=== PATIENT | male | born 1930 | race Caucasian/White ===

== ENCOUNTER 2016-02-16 11:39 | Inpatient (IN) | payer MEDICARE, OTHER ==
[~2016-02-16] VITALS: Ht 157.5 cm; Wt 71.7 kg
[~2016-02-16 11:39] MED LIST: ASP325T PO; ATN50T; BETH25TA PO; CCLB10TRX PO; DOCU-143 PO; FINA5TAB6 PO; FLUC100T6 PO; LEVO500T2 PO; LEVO500T80 PO; LSNP10T; MAGN296S50 PO; PHEN-640 PO; TAMS0.4C98 PO
[2016-02-16] MEDS ORDERED: NS IV 1000 ML 1,000 ML IV STA (11:44)
[2016-02-16] MEDS ORDERED: PROMETHAZINE INJ 25 MG/ML (PHENERGAN) AMP IVP STA (11:44)
[2016-02-16 11:51] LABS: BASOPHILS % (AUTO) 0 % (0-10); EOSINOPHILS # (AUTO) 0.2 10^3/uL (0.0-0.3); EOSINOPHILS % (AUTO) 2 % (0-10); LYMPHOCYTES % (AUTO) 36 % (12-44); MEAN CORPUSCULAR HEMOGLOBIN 31 PG (25-34); MEAN CORPUSCULAR HGB CONC 35 G/DL (32-36); MEAN CORPUSCULAR VOLUME 87 FL (80-99); MEAN PLATELET VOLUME 9.3 FL (7.4-10.4); MONOCYTES # (AUTO) 0.7 X 10^3 (0.0-1.0); MONOCYTES % (AUTO) 8 % (0-12); NEUTROPHILS # (AUTO) 4.4 X 10^3 (1.8-7.8); NEUTROPHILS % (AUTO) 53 % (42-75); PLATELET COUNT 174 10^3/uL (130-400); RED BLOOD COUNT 4.57 10^6/uL (4.35-5.85); RED CELL DISTRIBUTION WIDTH 12.6 % (10.0-14.5); WHITE BLOOD COUNT 8.2 10^3/uL (4.3-11.0)
[2016-02-16 12:12] LABS: ALANINE AMINOTRANSFERASE 10 U/L (0-55); ANION GAP 10 MMOL/L (5-14); BILIRUBIN,TOTAL 0.6 MG/DL (0.1-1.0); BLOOD UREA NITROGEN 16 MG/DL (7-18); BUN/CREATININE RATIO 12; CALCIUM 8.9 MG/DL (8.5-10.1); CARBON DIOXIDE 21 MMOL/L (21-32); CHLORIDE 105 MMOL/L (98-107); CREATININE SERUM 1.31 MG/DL (0.60-1.30); GFR ESTIMATED 52; GLUCOSE 158 MG/DL (70-105); POTASSIUM 3.7 MMOL/L (3.6-5.0); SODIUM 136 MMOL/L (135-145); TOTAL PROTEIN 6.8 G/DL (6.4-8.2); hs C REACTIVE PROTEIN 0.28 MG/DL (0.00-0.50)
[2016-02-16 12:18] LABS: TROPONIN I < 0.30 NG/ML (<0.30)
--- NOTE | 2016-02-16 12:22 | ED General ---
General Chief Complaint: Cardiac/General Problems Stated Complaint: POST CARDIAC ARREST Source of Information: Patient Exam Limitations: No Limitations History of Present Illness Time Seen by Provider: 11:40 Initial Comments Here by EMS with report of post cardiac arrest and CPR with spontaneous return of circulation. EMS noted the patient to be with a pulse on their arrival and breathing and complaining of abdominal pain. He had multiple episodes of vomiting that were persistent. They did initiate IV 2 and initiated 1 L bolus of fluid as well as a milligrams of Zofran IV. Patient is still vomiting fecal smelling brown vomitus. He complains of left-sided abdominal pain and weakness. Family reports that the event started with him walking to the bathroom and then coming out of the bathroom sweating and pale. He sat in the chair and then ultimately went unresponsive. They laid him on the floor and noted his pulse to be very weak and initiated CPR due to concerns that he was having a heart attack because of the presentation. After about 2 minutes, patient started vomiting and having persistent vomiting but was awake and CPR was stopped. EMS was called and they found him as stated above. Patient only reports not feeling well. Family reports that he was doing fine yesterday and this morning until the time of the event. Patient admits to a few hours of abdominal pain. Timing/Duration: 1-3 Hours Severity: Severe Associated Systoms: No Chest Pain, No Fever/Chills, Nausea/Vomiting Syncope Weakness Allergies and Home Medications Allergies Coded Allergies: No Known Drug Allergies (Verified , 01/05/15) Uncoded Allergies: Nka (Allergy, Mild, 09/10/07) Home Medications Bethanechol Chloride 25 Mg Tablet 14Days 50 MG PO ACHS Prescribed by: SHAWNEE LADD on 01/09/15914 Levofloxacin 500 Mg Tablet 5Days 500 MG PO DAILY Prescribed by: SHAWNEE LADD on 01/09/15914 Tamsulosin HCl 0.4 Mg Cap 0.4 MG PO DAILY (Reported) Constitutional: see HPINo chills, diaphoresisNo fever, weakness EENTM: no symptoms reported Respiratory: see HPINo short of breath, No wheezing Cardiovascular: see HPINo edema, syncope Gastrointestinal: see HPI abdominal pain (LUQ)No diarrhea, nausea vomiting Genitourinary: no symptoms reported Musculoskeletal: no symptoms reported Skin: no symptoms reported Psychiatric/Neurological: Weakness All Other Systems Reviewed Negative Unless Noted: Yes Past Bjbkvxn-Ejwrkb-Jiarfo Hx Patient Social History Recreational Drug Use: No Smoking Status: Never a Smoker Former Smoker/When Quit: Feb 19, 1979 Immunizations Up To Date Date of Influenza Vaccine: Nov 23, 2014 Surgeries HX Surgeries: Yes Surgeries: Appendectomy Respiratory Hx Respiratory Disorders: No Cardiovascular Hx Cardiac Disorders: No Neurological Hx Neurological Disorders: No Reproductive System Hx Reproductive Disorders: No Sexually Transmitted Disease: No HIV/AIDS: No Genitourinary Hx Genitourinary Disorders: Yes Genitourinary Disorders: Benign Prostatic Hyperpl, Prostate Problems, Kidney Stones, UTI-Chronic Gastrointestinal Hx Gastrointestinal Disorders: No Musculoskeletal Hx Musculoskeletal Disorders: No Endocrine Hx Endocrine Disorders: No HEENT HX ENT Disorders: Yes (GLASSES, DENTURES) Loss of Vision: Bilateral Hearing Impairment: Denies Cancer Hx Cancer: No Psychosocial Hx Psychiatric Problems: No Integumentary HX Skin/Integumentary Disorder: No Blood Transfusions Hx Blood Disorders: No Adverse Reaction to a Blood Tr: No Reviewed Nursing Assessment Reviewed/Agree w Nursing PMH: Yes Family Medical History Significant Family History: No Pertinent Family Hx Physical Exam Vital Signs Vital Sign - Last 12Hours 02/16/16 11:50 Temp 96.9 Pulse 55 Resp 22 B/P 190/77 Pulse Ox 96 O2 Delivery Room Air Capillary Refill : General Appearance: Moderate Distress (vomiting and abdominal pain) HEENT: PERRL/EOMI Pharynx Normal Neck: Non Tender Supple Respiratory: Lungs Clear Normal Breath Sounds Cardiovascular: Regular Rate, Rhythm No Murmur Gastrointestinal: SoftNo Distended, Tenderness (diffusely greatest in the left upper quadrant) Back: Normal Inspection No CVA Tenderness No Vertebral Tenderness Extremity: Non Tender No Calf Tenderness Neurologic/Psychiatric: Alert No Motor/Sensory Deficits Skin: Normal Color Warm/Dry Progress/Results/Core Measures Results/Orders Lab Results Laboratory Tests Test 02/16/16 11:44 02/16/16 12:44 Range/Units Alanine Aminotransferase (ALT/SGPT) 10 0-55 U/L Albumin 4.0 3.2-4.5 G/DL Alkaline Phosphatase 98 40-136 U/L Anion Gap 10 5-14 MMOL/L Aspartate Amino Transf (AST/SGOT) 19 5-34 U/L BUN/Creatinine Ratio 12 Basophils # (Auto) 0.0 0.0-0.1 10^3/uL Basophils (%) (Auto) 0 0-10 % Blood Urea Nitrogen 16 7-18 MG/DL C-Reactive Protein High Sensitivity 0.28 0.00-0.50 MG/DL Calcium Level 8.9 8.5-10.1 MG/DL Carbon Dioxide Level 21 21-32 MMOL/L Chloride Level 105 98-107 MMOL/L Creatinine 1.31 H 0.60-1.30 MG/DL Eosinophils # (Auto) 0.2 0.0-0.3 10^3/uL Eosinophils (%) (Auto) 2 0-10 % Estimat Glomerular Filtration Rate 52 Glucose Level 158 H 70-105 MG/DL Hematocrit 40 40-54 % Hemoglobin 14.1 13.3-17.7 G/DL Lymphocytes # (Auto) 3.0 1.0-4.0 X 10^3 Lymphocytes (%) (Auto) 36 12-44 % Mean Corpuscular Hemoglobin 31 25-34 PG Mean Corpuscular Hemoglobin Concent 35 32-36 G/DL Mean Corpuscular Volume 87 80-99 FL Mean Platelet Volume 9.3 7.4-10.4 FL Monocytes # (Auto) 0.7 0.0-1.0 X 10^3 Monocytes (%) (Auto) 8 0-12 % Neutrophils # (Auto) 4.4 1.8-7.8 X 10^3 Neutrophils (%) (Auto) 53 42-75 % Platelet Count 174 130-400 10^3/uL Potassium Level 3.7 3.6-5.0 MMOL/L Red Blood Count 4.57 4.35-5.85 10^6/uL Red Cell Distribution Width 12.6 10.0-14.5 % Sodium Level 136 135-145 MMOL/L Total Bilirubin 0.6 0.1-1.0 MG/DL Total Protein 6.8 6.4-8.2 G/DL Troponin I < 0.30 <0.30 NG/ML White Blood Count 8.2 4.3-11.0 10^3/uL Lactic Acid Level 1.7 0.5-2.0 MMOL/L My Orders Orders-FRANCISCO ALBA MD Ekg Tracing (02/16/16 11:44) Ng Tube Insert & Assessment (02/16/16 11:44) Monitor-Rhythm Ecg Trace Only (02/16/16 11:44) Cbc With Automated Diff (02/16/16 11:44) Comprehensive Metabolic Panel (02/16/16 11:44) Hs C Reactive Protein (02/16/16 11:44) Lactic Acid Analyzer (02/16/16 11:44) Troponin I (02/16/16 11:44) Ua Culture If Indicated (02/16/16 11:44) Blood Culture (02/16/16 11:44) Chest 1 View, Ap/Pa Only (02/16/16 11:44) Promethazine Injection (Phenergan Injec (02/16/16 11:44) Ns Iv 1000 Ml (Sodium Chloride 0.9%) (02/16/16 11:44) Ct Abdomen/Pelvis Wo (02/16/16 11:59) Vital Signs/I&O Vital Sign - Last 12Hours 02/16/16 11:50 Temp 96.9 Pulse 55 Resp 22 B/P 190/77 Pulse Ox 96 O2 Delivery Room Air Progress Note : Progress Note Seen and evaluated. IV EMS with normal saline 1 L bolus initiated by them. Labs, EKG, chest x-ray, CT abdomen and pelvis without contrast ordered. NG tube ordered due to persistent vomiting and fecal appearing and smelling vomitus. Vomiting resolved after NG tube placement. Monitor patient. 1330: Overall much improved after NG tube. NG tube was pulled back 10 cm after discussion with radiologist. Patient did have CPR performed on him today. He is still a little nauseated but not vomiting anymore now that the NG tube is in place. Labs, chest x-ray and CT all are okay. Patient will be admitted observation status due to CPR and vomiting event as well as syncopal event. This was discussed with Dr. KHAN who agrees with admission, observation status. Patient and family agree with plan. ECG Initial ECG Impression Date: Feb 16, 2016 Initial ECG Impression Time: 12:02 Initial ECG Rate: 52 Initial ECG Rhythm: Normal Sinus Initial ECG Impression: 1st Degree AV Block Comment Sinus rhythm with first degree AV block. No previous available for comparison. No evidence of ST elevation ID. Interpreted by me. Diagnostic Imaging Diagonstic Imaging: Xray Plain Films/CT/US/NM/MRI: chest [facility] [place] [place] NAME: JESUS GONZALEZ REC#: [id number] PT STATUS: REG ER : 1930 PHYSICIAN: FRANCISCO ALBA MD ADMIT DATE: 02/16/16/ER Draft Date of Exam:02/16/16 CHEST 1 VIEW, AP/PA ONLY EXAMINATION: Portable upright radiograph of the chest. INDICATION: Loss of consciousness. Syncope. Vomiting. FINDINGS: There is an NG tube with the distal tip probably in the proximal duodenum. The NG tube could be pulled back about 10 cm into the mid stomach. The lungs are clear. The heart size is normal. No effusion or pneumothorax. The mediastinum and thad appear unremarkable. IMPRESSION: The NG tube tip is in the upper right side of the abdomen, possibly passed the pylorus. Pull back of about 10 cm of the NG tube is suggested. Dictated on workstation # [id number] Dict: 02/16/16 1237 Trans: 02/16/16 1243 [id number] Interpreted by: JUSTINE CARSON MD Electronically signed by: [facility]: CT Plain Films/CT/US/NM/MRI: abdomen, pelvis Reviewed: Discussed w/Radiologist Departure Communication Time/Spoke to Admitting Phy: 13:30 Impression Impression: Primary Impression: Syncope and collapse Additional Impressions: History of sudden cardiac arrest successfully resuscitated Nausea and vomiting Qualified Code: R11.13 - Vomiting of fecal matter Disposition: ADMITTED INPATIENT Condition: Stable Decision to Admit Reason: Admit from ER (General) Decision to Admit/Date: Feb 16, 2016 Time/Decision to Admit Time: 13:30 Departure-Patient Inst. Referrals: KASH MAGALLANES MD (PCP/Family) Primary Care Physician Copy Copies To 1: KASH MAGALLANES MD, TIMOTHY D MD Feb 16, 2016 12:22
[2016-02-16 12:26] LABS: ASPARTATE AMINO TRANSFERASE 19 U/L (5-34)
--- NOTE | 2016-02-16 12:44 | Diagnostic Imaging Report ---
EXAMINATION: Portable upright radiograph of the chest. INDICATION: Loss of consciousness. Syncope. Vomiting. FINDINGS: There is an NG tube with the distal tip probably in the proximal duodenum. The NG tube could be pulled back about 10 cm into the mid stomach. The lungs are clear. The heart size is normal. No effusion or pneumothorax. The mediastinum and thad appear unremarkable. IMPRESSION: The NG tube tip is in the upper right side of the abdomen, possibly passed the pylorus. Pull back of about 10 cm of the NG tube is suggested. Dictated by: Dictated on workstation # [id number]
--- NOTE | 2016-02-16 13:37 | Diagnostic Imaging Report ---
PROCEDURE: CT abdomen and pelvis without contrast. TECHNIQUE: Multiple contiguous axial images were obtained through the abdomen and pelvis without the use of intravenous contrast. INDICATION: Syncope. Abdominal pain. FINDINGS: The lung bases demonstrate mild atelectasis. The NG tube tip is in the proximal duodenum. Pull back into the stomach is recommended. The liver, the gallbladder, the spleen, the pancreas, and the adrenal glands appear unremarkable for unenhanced exam. There is suggestion of a small hiatal hernia. There is no pneumoperitoneum and no free fluid or fluid collection in the abdomen or pelvis seen. There are a few diverticula noted with no evidence of diverticulitis. Moderate amount of fecal material is seen in the left colon and rectum. The kidneys demonstrate no hydronephrosis. No urinary tract stones. There urinary bladder is mildly distended with a prominent lobulation anteriorly and to the right, appears to be projecting towards a small direct right inguinal hernia. The prostate is enlarged with nonspecific calcifications. This measures 5.5 cm in transverse dimension. 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 The osseous structures demonstrate mild degenerative change with vacuum phenomenon at L5/S1 disc. IMPRESSION: 1. The NG tube tip is in the proximal duodenum. Pull back into the stomach is recommended. 2. Diverticulosis. No evidence of diverticulitis. There is moderate amount of fecal material in the distal colon and rectum. 3. Mildly distended urinary bladder with prominent lobulated portion projecting anteriorly and to the right into a small right direct inguinal hernia. The urinary bladder wall is not thickened. No CT evidence of strangulation. 4. Small hiatal hernia. 5. 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 Dictated by: Dictated on workstation # [id number]
[2016-02-16] MEDS ORDERED: ONDANSETRON 4 MG/2 ML (SDV) Z0FRAN IV PRN (14:45)
[2016-02-16] MEDS ORDERED: CATHETER FLUSH 10 ML SYR IV PRN (14:45)
[2016-02-16] MEDS ORDERED: fentaNYL INJECTION 100 MCG/2 ML AMP IV PRN (15:00)
[2016-02-16] MEDS: NS IV 1000 ML 1,000 ML IV SCH ×2 (15:05→22:27)
[2016-02-16] MEDS ORDERED: POLY15DR14 OU (15:49)
[2016-02-16] MEDS ORDERED: ASPI-808 PO (15:49)
[2016-02-16 20:00] VITALS: BP 159/65
[2016-02-17 00:24] VITALS: BP 141/64
[2016-02-17 04:00] VITALS: BP 138/66
[2016-02-17] MEDS: NS IV 1000 ML 1,000 ML IV SCH ×2 (06:30→14:39)
[2016-02-17 06:56] LABS: BASOPHILS % (AUTO) 0 % (0-10); EOSINOPHILS % (AUTO) 0 % (0-10); LYMPHOCYTES # (AUTO) 0.9 X 10^3 (1.0-4.0); LYMPHOCYTES % (AUTO) 11 % (12-44); MEAN CORPUSCULAR HEMOGLOBIN 31 PG (25-34); MEAN CORPUSCULAR HGB CONC 35 G/DL (32-36); MEAN CORPUSCULAR VOLUME 89 FL (80-99); MEAN PLATELET VOLUME 9.8 FL (7.4-10.4); MONOCYTES # (AUTO) 0.8 X 10^3 (0.0-1.0); MONOCYTES % (AUTO) 9 % (0-12); NEUTROPHILS % (AUTO) 80 % (42-75); PLATELET COUNT 183 10^3/uL (130-400); RED BLOOD COUNT 4.27 10^6/uL (4.35-5.85); RED CELL DISTRIBUTION WIDTH 12.7 % (10.0-14.5); WHITE BLOOD COUNT 8.8 10^3/uL (4.3-11.0)
[2016-02-17 07:22] LABS: ALBUMIN 3.7 G/DL (3.2-4.5); BILIRUBIN,TOTAL 0.9 MG/DL (0.1-1.0); CALCIUM 8.6 MG/DL (8.5-10.1); CREATININE SERUM 1.25 MG/DL (0.60-1.30); POTASSIUM 3.4 MMOL/L (3.6-5.0); TOTAL PROTEIN 6.5 G/DL (6.4-8.2)
[2016-02-17 08:00] VITALS: BP 143/62
[2016-02-17] MEDS ORDERED: ARTIFICAL TEARS 0.4 ML UNIT DOSE (REFRESH PLUS) OU PRN (09:45)
[2016-02-17] MEDS: POTASSIUM CL 10MEQ/50ML IVPB 50 ML IV SCH ×4 (10:08→14:41)
--- NOTE | 2016-02-17 10:50 | History & Physical-Hospitalist ---
HPI History of Present Illness: HPI/Chief Complaint CC: Syncopal episode HPI: This is an 86[facility] pt of Dr. Argueta'stephenie that was admitted after he was brought to ER by EMS post-cardiac arrest and CPR with return of circulation. Upon more evaluation, it appeared that he had some sort of vagal syncope due to severe vomiting. Dr. Jackson Consult: Dr. Armstrong requests that Dr. Jackson assist with pt. Dr. Jackson agrees. Patient Interview: Pt states that he has not vomited recently. Pt states that his throat is sore. Pt's last BM was yesterday. Pt states that he would like to DC. Physical exam revealed coarse breathing. Dr. Armstrong informs pt of plans for x-ray. Pt is not receiving breathing treatments. Scribed by Santiago Miller under the direct supervision of Dr. Armstrong. Source: patient Date Seen 02/17/16 Attending Physician Roderick Lindo MD PCP Jignesh Argueta MD Referring Physician Date of Admission Feb 17, 2016 at 09:40 Home Medications & Allergies Home Medications Reviewed patient Home Medication Reconciliation Form Allergies Coded Allergies: No Known Drug Allergies (Verified , 01/05/15) Uncoded Allergies: Nka (Allergy, Mild, 09/10/07) Past Kmzmife-Jwxerx-Zbythj Hx Patient Social History Employed/Student: retired Alcohol Use: Denies Use Recreational Drug Use: No Smoking Status: Former Smoker Former smoker/When Quit: Feb 19, 1979 Physical Abuse Screen: No Sexual Abuse: No Recent Foreign Travel: No Contact w/other who traveled: No Recent Hopitalizations: No Recent Infectious Disease Expo: No Immunizations Up To Date Date of Influenza Vaccine: Nov 20, 2015 Seasonal Allergies Seasonal Allergies: No Surgeries HX Surgeries: Yes (APPY 1950, CATARACTS REMOVED) Surgeries: Appendectomy Respiratory Hx Respiratory Disorders: No Cardiovascular Hx Cardiovascular Disorders: Yes ([place] 1974) Cardiac Disorders: Coronary Artery Disease Neurological Hx Neurological Disorders: No Reproductive System Hx Reproductive Disorders: No Sexually Transmitted Disease: No HIV/AIDS: No Genitourinary Hx Genitourinary Disorders: Yes Genitourinary Disorders: Benign Prostatic Hyperpl, Prostate Problems, UTI- Chronic Gastrointestinal Hx Gastrointestinal Disorders: No Musculoskeletal Hx Musculoskeletal Disorders: No Endocrine Hx Endocrine Disorders: No HEENT HX ENT Disorders: Yes (GLASSES, DENTURES) Loss of Vision: Bilateral Hearing Impairment: Hard of Hearing Cancer Hx Cancer: No Psychosocial Hx Psychiatric Problems: No Integumentary HX Skin/Integumentary Disorder: No Blood Transfusions Hx Blood Disorders: No Adverse Reaction to a Blood Tr: No Reviewed Nursing Assessment Reviewed/Agree w Nursing PMH: Yes Family Medical History Significant Family History: No Pertinent Family Hx Family Hx: CANCER 19 FATHER G8 BROTHER G8 BROTHER G8 SISTER FH: cancer Review of Systems Constitutional: see HPI dizziness weakness EENTM: no symptoms reported Respiratory: cough short of breath Cardiovascular: no symptoms reported Gastrointestinal: loss of appetite nausea vomiting Genitourinary: decreased output Musculoskeletal: no symptoms reported Skin: no symptoms reported Psychiatric/Neurological: No Symptoms Reported All Other Systems Reviewed Negative Unless Noted: Yes Physical Exam Physical Exam Vital Signs Vital Sign - Last 12Hours 02/16/16 11:50 Temp 96.9 Pulse 55 Resp 22 B/P 190/77 Pulse Ox 96 O2 Delivery Room Air Capillary Refill : Less Than 3 Seconds General Appearance: No Apparent Distress WD/WN Chronically ill Eyes: Bilateral Eye Normal Inspection, Bilateral Eye PERRL HEENT: PERRL/EOMI Normal ENT Inspection Pharynx Normal Neck: Full Range of Motion Normal Inspection Non Tender Supple Carotid Bruit Respiratory: Chest Non Tender No Accessory Muscle Use No Respiratory Distress Crackles Decreased Breath Sounds Wheezing Cardiovascular: Regular Rate, Rhythm No Edema No Gallop No JVD No Murmur Normal Peripheral Pulses Gastrointestinal: Normal Bowel Sounds No Organomegaly No Pulsatile Mass Non Tender Soft Other (NGT in place) Back: Normal Inspection No CVA Tenderness No Vertebral Tenderness Extremity: Normal Capillary Refill Normal Inspection Normal Range of Motion Non Tender No Calf Tenderness No Pedal Edema Neurologic/Psychiatric: Alert Oriented x3 No Motor/Sensory Deficits Normal Mood/Affect Skin: Normal Color Warm/Dry Lymphatic: No Adenopathy Results Results/Procedures Lab Laboratory Tests 02/16/16 11:44 02/17/16 05:40 Assessment/Plan Admission Diagnosis Assessment: S/P aspiration during CPR after unresponsive episode likely due to vagal episode causing aspiration pneumonitis with current SBO with NGT in place with fever Hypokalemia ARF improved with IVF Dry eye syndrome Assessment and Plan Plan: Consult Dr. Jackson and Dr Fiore Replace K IV Maintain NGT Check KUB and CXR Duoneb QID Zosyn Clinical Quality Measures DVT/VTE Risk/Contraindication: Risk Factor Score Per Nursin RFS Level Per Nursing on Admit: 4+=Very High RAFAEL ARMSTRONG DO Feb 17, 2016 10:50
[2016-02-17] MEDS ORDERED: PIPERACILLIN SODIUM/TAZOBACTAM 4.5 GM in NORMAL SALINE (BAXTER MINI) 100 ML IV NR (11:00)
[2016-02-17] MEDS: PANTOPRAZOLE 40 MG/10 ML (PROTONIX) VIAL IV SCH (11:18)
--- NOTE | 2016-02-17 11:30 | Consultation ---
History of Present Illness History of Present Illness Patient Consulted On(silvia/time) 02/17/16 11:24 Date of Admission History of Present Illness This is a 86-year-old male patient who was admitted through the ER yesterday after EMS was called to residence for Cardiac arrest.Family reports that patient was about to sit down after going to the bathroom and slumped in chair. Family members brought him down to the floor and began to perform CPR while another family member called EMS. Family member also reported that couple of times after performing CPR, the patient would "come around"and have an episode of nausea and vomiting and then was "out". He also stated that patient was diaphoretic and appeared that he was having a heart attack. Patient reports that he does not remember anything happening. The patient ED report states, when EMS arrived, patient was breathing, and had a pulse, complaining of abdominal pain. Patient continued to have multiple episodes of vomiting. Patient has NG tube in his right and denies having any episode of nausea or vomiting today. Allergies and Home Medications Allergies Coded Allergies: No Known Drug Allergies (Verified , 01/05/15) Uncoded Allergies: Nka (Allergy, Mild, 09/10/07) Home Medications Aspirin 325 Mg Tablet 325 MG PO DAILY PRN PRN PAIN (Reported) Polyvinyl Alcohol/Povidone 15 Ml Drops 1 DROP OU DAILY PRN PRN PRN DRY EYES ( Reported) Past Rlnnhyb-Icvwnv-Muhkhf Hx Patient Social History Alcohol Use: Denies Use Recreational Drug Use: No Smoking Status: Former Smoker Former Smoker/When Quit: Feb 19, 1979 Recent Foreign Travel: No Contact w/Someone Who Travel: No Recent Infectious Disease Expo: No Recent Hopitalizations: No Physical Abuse Screen: No Sexual Abuse: No Immunizations Up To Date Date of Influenza Vaccine: Nov 20, 2015 Seasonal Allergies Seasonal Allergies: No Surgeries HX Surgeries: Yes (APPY 1950, CATARACTS REMOVED) Surgeries: Appendectomy Respiratory Hx Respiratory Disorders: No Cardiovascular Hx Cardiac Disorders: Yes ([place] 1974) Cardiac Disorders: Coronary Artery Disease Neurological Hx Neurological Disorders: No Reproductive System Hx Reproductive Disorders: No Sexually Transmitted Disease: No HIV/AIDS: No Genitourinary Hx Genitourinary Disorders: Yes Genitourinary Disorders: Benign Prostatic Hyperpl, Prostate Problems, UTI- Chronic Gastrointestinal Hx Gastrointestinal Disorders: No Musculoskeletal Hx Musculoskeletal Disorders: No Endocrine Hx Endocrine Disorders: No HEENT HX ENT Disorders: Yes (GLASSES, DENTURES) Loss of Vision: Bilateral Hearing Impairment: Hard of Hearing Cancer Hx Cancer: No Psychosocial Hx Psychiatric Problems: No Integumentary HX Skin/Integumentary Disorder: No Blood Transfusions Hx Blood Disorders: No Adverse Reaction to a Blood Tr: No Reviewed Nursing Assessment Reviewed/Agree w Nursing PMH: Yes Family Medical History Significant Family History: No Pertinent Family Hx Family Medial History: CANCER 19 FATHER G8 BROTHER G8 BROTHER G8 SISTER FH: cancer Review of Systems-General Constitutional: see HPI diaphoresis EENTM: no symptoms reported see HPI Respiratory: see HPI Cardiovascular: see HPI Gastrointestinal: see HPI Genitourinary: no symptoms reported Musculoskeletal: no symptoms reported Skin: other (Pt was clammy. ) Physical Exam-General Problems Physical Exam Vital Signs Vital Sign - Last 12Hours 02/16/16 11:50 Temp 96.9 Pulse 55 Resp 22 B/P 190/77 Pulse Ox 96 O2 Delivery Room Air Capillary Refill : Less Than 3 Seconds General Appearance: no apparent distress HEENT: pale conjunctivae (R) pale conjunctivae (L) Neck: normal inspection Respiratory: no respiratory distress no accessory muscle use Cardiovascular: regular rate, rhythm Gastrointestinal: non tender soft Extremities: no pedal edema no calf tenderness Neurologic/Psychiatric: alert normal mood/affect Skin: warm/dry Data Review Labs Laboratory Tests Test 02/16/16 11:44 02/16/16 12:44 02/17/16 05:40 Range/Units Alanine Aminotransferase (ALT/SGPT) 10 8 0-55 U/L Albumin 4.0 3.7 3.2-4.5 G/DL Alkaline Phosphatase 98 82 40-136 U/L Anion Gap 10 10 5-14 MMOL/L Aspartate Amino Transf (AST/SGOT) 19 16 5-34 U/L BUN/Creatinine Ratio 12 13 Basophils # (Auto) 0.0 0.0 0.0-0.1 10^3/uL Basophils (%) (Auto) 0 0 0-10 % Blood Urea Nitrogen 16 16 7-18 MG/DL C-Reactive Protein High Sensitivity 0.28 0.00-0.50 MG/DL Calcium Level 8.9 8.6 8.5-10.1 MG/DL Carbon Dioxide Level 21 25 21-32 MMOL/L Chloride Level 105 106 98-107 MMOL/L Creatinine 1.31 H 1.25 0.60-1.30 MG/DL Eosinophils # (Auto) 0.2 0.0 0.0-0.3 10^3/uL Eosinophils (%) (Auto) 2 0 0-10 % Estimat Glomerular Filtration Rate 52 55 Glucose Level 158 H 117 H 70-105 MG/DL Hematocrit 40 38 L 40-54 % Hemoglobin 14.1 13.2 L 13.3-17.7 G/DL Lymphocytes # (Auto) 3.0 0.9 L 1.0-4.0 X 10^3 Lymphocytes (%) (Auto) 36 11 L 12-44 % Mean Corpuscular Hemoglobin 31 31 25-34 PG Mean Corpuscular Hemoglobin Concent 35 35 32-36 G/DL Mean Corpuscular Volume 87 89 80-99 FL Mean Platelet Volume 9.3 9.8 7.4-10.4 FL Monocytes # (Auto) 0.7 0.8 0.0-1.0 X 10^3 Monocytes (%) (Auto) 8 9 0-12 % Neutrophils # (Auto) 4.4 7.0 1.8-7.8 X 10^3 Neutrophils (%) (Auto) 53 80 H 42-75 % Platelet Count 174 183 130-400 10^3/uL Potassium Level 3.7 3.4 L 3.6-5.0 MMOL/L Red Blood Count 4.57 4.27 L 4.35-5.85 10^6/uL Red Cell Distribution Width 12.6 12.7 10.0-14.5 % Sodium Level 136 141 135-145 MMOL/L Total Bilirubin 0.6 0.9 0.1-1.0 MG/DL Total Protein 6.8 6.5 6.4-8.2 G/DL Troponin I < 0.30 <0.30 NG/ML White Blood Count 8.2 8.8 4.3-11.0 10^3/uL Lactic Acid Level 1.7 0.5-2.0 MMOL/L Laboratory Tests 02/16/16 11:44: Alanine Aminotransferase (ALT/SGPT) 10, Albumin 4.0, Alkaline Phosphatase 98, Anion Gap 10, Aspartate Amino Transf (AST/SGOT) 19, BUN/Creatinine Ratio 12, Basophils # (Auto) 0.0, Basophils (%) (Auto) 0, Blood Urea Nitrogen 16, C- Reactive Protein High Sensitivity 0.28, Calcium Level 8.9, Carbon Dioxide Level 21, Chloride Level 105, Creatinine 1.31H, Eosinophils # (Auto) 0.2, Eosinophils (%) (Auto) 2, Estimat Glomerular Filtration Rate 52, Glucose Level 158H, Hematocrit 40, Hemoglobin 14.1, Lymphocytes # (Auto) 3.0, Lymphocytes (%) (Auto ) 36, Mean Corpuscular Hemoglobin 31, Mean Corpuscular Hemoglobin Concent 35, Mean Corpuscular Volume 87, Mean Platelet Volume 9.3, Monocytes # (Auto) 0.7, Monocytes (%) (Auto) 8, Neutrophils # (Auto) 4.4, Neutrophils (%) (Auto) 53, Platelet Count 174, Potassium Level 3.7, Red Blood Count 4.57, Red Cell Distribution Width 12.6, Sodium Level 136, Total Bilirubin 0.6, Total Protein 6.8, Troponin I < 0.30, White Blood Count 8.2 02/16/16 12:44: Lactic Acid Level 1.7 02/17/16 05:40: Alanine Aminotransferase (ALT/SGPT) 8, Albumin 3.7, Alkaline Phosphatase 82, Anion Gap 10, Aspartate Amino Transf (AST/SGOT) 16, BUN/Creatinine Ratio 13, Basophils # (Auto) 0.0, Basophils (%) (Auto) 0, Blood Urea Nitrogen 16, Calcium Level 8.6, Carbon Dioxide Level 25, Chloride Level 106, Creatinine 1.25, Eosinophils # (Auto) 0.0, Eosinophils (%) (Auto) 0, Estimat Glomerular Filtration Rate 55, Glucose Level 117H, Hematocrit 38L, Hemoglobin 13.2L, Lymphocytes # (Auto) 0.9L, Lymphocytes (%) (Auto) 11L, Mean Corpuscular Hemoglobin 31, Mean Corpuscular Hemoglobin Concent 35, Mean Corpuscular Volume 89, Mean Platelet Volume 9.8, Monocytes # (Auto) 0.8, Monocytes (%) (Auto) 9, Neutrophils # (Auto) 7.0, Neutrophils (%) (Auto) 80H, Platelet Count 183, Potassium Level 3.4L, Red Blood Count 4.27L, Red Cell Distribution Width 12.7, Sodium Level 141, Total Bilirubin 0.9, Total Protein 6.5, White Blood Count 8.8 Radiology NAME: JESUS GONZALEZ [facility] REC#: [id number] PT STATUS: REG ER : 1930 PHYSICIAN: FRANCISCO ALBA MD ADMIT DATE: 02/16/16/ER Draft Date of Exam:02/16/16 CHEST 1 VIEW, AP/PA ONLY EXAMINATION: Portable upright radiograph of the chest. INDICATION: Loss of consciousness. Syncope. Vomiting. FINDINGS: There is an NG tube with the distal tip probably in the proximal duodenum. The NG tube could be pulled back about 10 cm into the mid stomach. The lungs are clear. The heart size is normal. No effusion or pneumothorax. The mediastinum and thad appear unremarkable. IMPRESSION: The NG tube tip is in the upper right side of the abdomen, possibly passed the pylorus. Pull back of about 10 cm of the NG tube is suggested. Assessment/Plan Assessment/Plan Assessment/Plan Post Cardiac resuscitation/syncope Nausea and vomiting Xray shows no evidence of SBO. Discontinue with NGT. We will continue to monitor patient. . Jackson- 86 year old male who s/p cardiac resuscitation/syncopal episode yesterday. Family was doing CPR and patient woke up. Patient has several episodes of emesis of bilious/fecal smelling emesis. Patient reports that his a abdomen was a little sore yesterday prior to event. Now he reports no abdominal pain. He had a ct scan abdomen and pelvis with no significant acute finding for small bowel obstruction yesterday. Patient had kub this morning not demonstrating obstruction. Patient reports passing flatus and having bowel movements without difficulty, the last one being yesterday. general sitting in chair no acute distress heart reg lungs coarse b/l abdomen soft nondistended nontender no guarding or rebounding ext nontender normal mood and affect alert and oriented s/p cardiac resuscitation syncopal episode aspiraiton pneumonitis nausea and vomiting hypokalemia i dont feel there is a sbo after looking at ct scan and kub today. He is passing flatus. Will dc ng tube. Not having any abdominal pain at this time No surgical intervention at this time, will follow Clinical Quality Measures DVT/VTE Risk/Contraindication: Risk Factor Score Per Nursin RFS Level Per Nursing on Admit: 4+=Very High NWAGWU,ISIDORE O [employer] Feb 17, 2016 11:30 JANET JACKSON DO Feb 17, 2016 15:25
[2016-02-17] MEDS: RT-ALBUTEROL/IPRATROPIUM 3 ML (DUONEB) VIAL INH SCH ×4 (11:33→22:36)
[2016-02-17 12:00] VITALS: BP 139/61
--- NOTE | 2016-02-17 12:23 | Pulmonary Consultation ---
History of Present Illness History of Present Illness Date of Consultation 02/17/16 12:16 Date of Admission History of Present Illness 86yo presented to ED via EMS s/p syncope. Pt was thought to have went into cardiac arrest and CPR was started with "spontaneous return of circulation". This was prior to EMS arrival. Pt had multiple episodes of vomiting and probably aspirated. Pt came out of the bathroom sweating and pale. He sat in the chair and then ultimately went unresponsive. They laid him on the floor and noted his pulse to be very weak and initiated CPR due to concerns that he was having a heart attack because of the presentation. After about 2 minutes, patient started vomiting and having persistent vomiting but was awake and CPR was stopped. Allergies and Home Medications Allergies Coded Allergies: No Known Drug Allergies (Verified , 01/05/15) Uncoded Allergies: Nka (Allergy, Mild, 09/10/07) Home Medications Aspirin 325 Mg Tablet 325 MG PO DAILY PRN PRN PAIN (Reported) Polyvinyl Alcohol/Povidone 15 Ml Drops 1 DROP OU DAILY PRN PRN PRN DRY EYES ( Reported) Past Pegfjxh-Gjwpzx-Augfij Hx Patient Social History Alcohol Use: Denies Use Recreational Drug Use: No Smoking Status: Former Smoker Former Smoker/When Quit: Feb 19, 1979 Recent Foreign Travel: No Contact w/Someone Who Travel: No Recent Infectious Disease Expo: No Recent Hopitalizations: No Physical Abuse Screen: No Sexual Abuse: No Immunizations Up To Date Date of Influenza Vaccine: Nov 20, 2015 Seasonal Allergies Seasonal Allergies: No Surgeries HX Surgeries: Yes (APPY 1950, CATARACTS REMOVED) Surgeries: Appendectomy Respiratory Hx Respiratory Disorders: No Cardiovascular Hx Cardiac Disorders: Yes ([place] 1974) Cardiac Disorders: Coronary Artery Disease Neurological Hx Neurological Disorders: No Reproductive System Hx Reproductive Disorders: No Sexually Transmitted Disease: No HIV/AIDS: No Genitourinary Hx Genitourinary Disorders: Yes Genitourinary Disorders: Benign Prostatic Hyperpl, Prostate Problems, UTI- Chronic Gastrointestinal Hx Gastrointestinal Disorders: No Musculoskeletal Hx Musculoskeletal Disorders: No Endocrine Hx Endocrine Disorders: No HEENT HX ENT Disorders: Yes (GLASSES, DENTURES) Loss of Vision: Bilateral Hearing Impairment: Hard of Hearing Cancer Hx Cancer: No Psychosocial Hx Psychiatric Problems: No Integumentary HX Skin/Integumentary Disorder: No Blood Transfusions Hx Blood Disorders: No Adverse Reaction to a Blood Tr: No Reviewed Nursing Assessment Reviewed/Agree w Nursing PMH: Yes Family Medical History Significant Family History: No Pertinent Family Hx Family Medial History: CANCER 19 FATHER G8 BROTHER G8 BROTHER G8 SISTER FH: cancer Exam Exam Vital Signs Date Time Temp Pulse Resp B/P Pulse Ox O2 Delivery O2 Flow Rate FiO2 02/17/16 12:00 99.2 70 20 139/61 94 Room Air 02/17/16 11:33 88 Room Air 02/17/16 09:00 90 Room Air 02/17/16 08:01 Room Air 02/17/16 08:00 99.9 76 19 143/62 90 Room Air 02/17/16 04:00 100.1 70 18 138/66 93 Room Air 02/17/16 00:24 100.3 74 18 141/64 91 Room Air 02/16/16 21:00 Room Air 02/16/16 20:00 99.4 63 18 159/65 93 Room Air 02/16/16 19:30 93 Room Air 02/16/16 16:33 96 Room Air 02/16/16 16:31 96 02/16/16 14:10 97.1 63 20 95 Room Air I & O 02/17/16 07:00 Intake Total 0 ml Output Total 1750 ml Balance -1750 ml General Appearance: No Apparent Distress WD/WN Chronically ill HEENT: PERRL/EOMI Normal ENT Inspection Pharynx Normal Neck: Full Range of Motion Normal Inspection Non Tender Supple Carotid Bruit Respiratory: Chest Non Tender No Accessory Muscle Use No Respiratory Distress Crackles Decreased Breath Sounds Wheezing Cardiovascular: Regular Rate, Rhythm No Edema No Gallop No JVD No Murmur Normal Peripheral Pulses Capillary Refill: Less Than 3 Seconds Gastrointestinal: non tender soft Extremity: Normal Capillary Refill Normal Inspection Normal Range of Motion Non Tender No Calf Tenderness No Pedal Edema Neurologic/Psychiatric: Alert Oriented x3 No Motor/Sensory Deficits Normal Mood/Affect Skin: Normal Color Warm/Dry Lymphatic: No Adenopathy Results Lab Laboratory Tests 02/16/16 11:44 02/17/16 05:40 Assessment/Plan Assessment/Plan S/P aspiration during CPR s/p syncope vasal vagal -- doubt true cardiac arrest -Agree with Zosyn -SVNs ARF improved with IVF Clinical Quality Measures DVT/VTE Risk/Contraindication: Risk Factor Score Per Nursin RFS Level Per Nursing on Admit: 4+=Very High CAIN JONES DO Feb 17, 2016 12:23
--- NOTE | 2016-02-17 14:50 | Diagnostic Imaging Report ---
EXAM: PA and lateral views of the chest. INDICATION: Followup of bowel obstruction. COMPARISON: 02/16/16. FINDINGS: The lungs demonstrate mild atelectasis in the right lung base without focal significant consolidation. The heart size is normal. No effusion or pneumothorax. The mediastinum and thad appear unremarkable. NG tube is again noted terminating below the level of the image on the right side of the abdomen, probably in the second portion of the duodenum. IMPRESSION: Minimal right basilar atelectasis. Dictated by: Dictated on workstation # [id number]
--- NOTE | 2016-02-17 14:59 | Diagnostic Imaging Report ---
EXAM: Upright and supine views of the abdomen. INDICATION: Followup bowel obstruction. FINDINGS: The NG tube terminates in the right mid abdomen compatible with mid duodenal location. There is no pneumoperitoneum. No significantly dilated bowel loops or air-fluid levels seen to suggest obstruction. Unremarkable bowel gas pattern is seen. There is small to moderate amounts of fecal material in the distal colon. IMPRESSION: No pneumoperitoneum or evidence of bowel obstruction. The NG tube tip is in the mid duodenum. Dictated by: Dictated on workstation # [id number]
[2016-02-17 16:00] VITALS: BP 143/61
[2016-02-17] MEDS ORDERED: IBUPROFEN TABLET 200 MG TAB PO PRN (18:00)
[2016-02-17] MEDS: ACETAMINOPHEN 325 MG TABLET/CAPLET (TYLENOL) PO PRN (18:07)
[2016-02-17 20:00] VITALS: BP 128/56
[2016-02-18] VITALS (16 sets, daily range): BP systolic 108–142; BP diastolic 55–88
[2016-02-18] MEDS: NS IV 1000 ML 1,000 ML IV SCH ×3 (00:20→19:37)
[2016-02-18] MEDS ORDERED: PIPERACILLIN/TAZO 4.5 GM VIAL (ZOSYN) IV ONE (01:12)
[2016-02-18] MEDS ORDERED: NORMAL SALINE (BAXTER MINI) 100 ML IV ONE (01:12)
[2016-02-18] MEDS: RT-ALBUTEROL/IPRATROPIUM 3 ML (DUONEB) VIAL INH SCH ×6 (02:30→22:50)
[2016-02-18 06:03] LABS: BASOPHILS % (AUTO) 0 % (0-10); EOSINOPHILS % (AUTO) 0 % (0-10); LYMPHOCYTES # (AUTO) 0.8 X 10^3 (1.0-4.0); LYMPHOCYTES % (AUTO) 10 % (12-44); MEAN CORPUSCULAR HEMOGLOBIN 31 PG (25-34); MEAN CORPUSCULAR HGB CONC 35 G/DL (32-36); MEAN CORPUSCULAR VOLUME 90 FL (80-99); MEAN PLATELET VOLUME 9.4 FL (7.4-10.4); MONOCYTES # (AUTO) 0.8 X 10^3 (0.0-1.0); MONOCYTES % (AUTO) 10 % (0-12); NEUTROPHILS # (AUTO) 6.6 X 10^3 (1.8-7.8); NEUTROPHILS % (AUTO) 80 % (42-75); PLATELET COUNT 141 10^3/uL (130-400); RED BLOOD COUNT 3.86 10^6/uL (4.35-5.85); RED CELL DISTRIBUTION WIDTH 12.7 % (10.0-14.5); WHITE BLOOD COUNT 8.2 10^3/uL (4.3-11.0)
[2016-02-18 06:26] LABS: ALANINE AMINOTRANSFERASE 11 U/L (0-55); ALBUMIN 3.2 G/DL (3.2-4.5); ANION GAP 10 MMOL/L (5-14); ASPARTATE AMINO TRANSFERASE 47 U/L (5-34); BILIRUBIN,TOTAL 1.2 MG/DL (0.1-1.0); BLOOD UREA NITROGEN 14 MG/DL (7-18); BUN/CREATININE RATIO 13; CALCIUM 7.9 MG/DL (8.5-10.1); CARBON DIOXIDE 17 MMOL/L (21-32); CHLORIDE 111 MMOL/L (98-107); CREATININE SERUM 1.07 MG/DL (0.60-1.30); GFR ESTIMATED > 60; GLUCOSE 120 MG/DL (70-105); POTASSIUM 3.8 MMOL/L (3.6-5.0); SODIUM 138 MMOL/L (135-145)
[2016-02-18] MEDS: PANTOPRAZOLE 40 MG/10 ML (PROTONIX) VIAL IV SCH (08:12)
--- NOTE | 2016-02-18 08:49 | Progress Note-Hospitalist ---
Subjective HPI/CC On Admission CC: Syncopal episode HPI: This is an 86yoWM clinic pt of Dr. Magallanes's that was admitted after he was brought to ER by EMS post-cardiac arrest and CPR with return of circulation. Upon more evaluation, it appeared that he had some sort of vagal syncope due to severe vomiting. Dr. Jackson Consult: Dr. Wan requests that Dr. Jackson assist with pt. Dr. Jackson agrees. Patient Interview: Pt states that he has not vomited recently. Pt states that his throat is sore. Pt's last BM was yesterday. Pt states that he would like to DC. Physical exam revealed coarse breathing. Dr. Wan informs pt of plans for x-ray. Pt is not receiving breathing treatments. 02/18/16 progress note: Patient reports he didn't sleep last night he has a loose nonproductive cough but denied night sweats chills or fever. MAXIMUM TEMPERATURE is 100 he denies chest pain dizziness lightheadedness or palpitation. He still feels more fatigued than baseline. Date Seen 02/18/16 Objective Exam Vital Signs Vital Sign - Last 12Hours 02/16/16 02/17/16 11:50 16:00 Temp 96.9 Pulse 55 Resp 22 B/P 190/77 Pulse Ox 96 O2 Delivery Room Air O2 Flow Rate 2.00 Capillary Refill : Less Than 3 Seconds General Appearance: Mild Distress Respiratory: Chest Non Tender No Accessory Muscle Use No Respiratory Distress Other (Loose sounding cough noted slightly diminished breath sounds in the right base with rales and rhonchi chest is clear elsewhere) Cardiovascular: Regular Rate, Rhythm No Edema No Gallop No JVD No Murmur Normal Peripheral Pulses Gastrointestinal: Normal Bowel Sounds No Organomegaly No Pulsatile Mass Non Tender Soft Extremity: Normal Inspection Normal Range of Motion Non Tender No Calf Tenderness No Pedal Edema Results/Procedures Lab Laboratory Tests 02/18/16 06:00 Assessment/Plan Assessment and Plan Assess & Plan/Chief Complaint 1. Vasovagal syncope most likely doubt cardiac arrest continue to monitor. 2. Aspiration pneumonitis probably affecting right lower lobe likely chemical in etiology. Patient's white count is not elevated low-grade temperatures defervescing hold antibiotics as long as patient continues to improve with repeat counts in the morning. If the patient does not spike a fever and is feeling better consider discharge tomorrow. KASH MAGALLANES MD Feb 18, 2016 08:49
--- NOTE | 2016-02-18 09:26 | Pulmonary Progress Note ---
Subjective Subjective/Events-last exam NO complications noted currently. Exam Exam Vital Signs Date Time Temp Pulse Resp B/P Pulse Ox O2 Delivery O2 Flow Rate FiO2 02/18/16 08:00 99.2 78 20 139/57 93 Nasal Cannula 2.00 02/18/16 06:47 91 Nasal Cannula 3.00 02/18/16 04:00 100.0 77 20 142/55 91 Nasal Cannula 2.00 02/18/16 02:30 Nasal Cannula 3.00 02/18/16 00:00 99.8 80 20 132/60 93 Nasal Cannula 2.00 02/17/16 22:36 Nasal Cannula 2.00 02/17/16 21:00 Room Air 02/17/16 20:00 99.7 89 20 128/56 93 Nasal Cannula 2.00 02/17/16 19:01 101.4 02/17/16 18:32 90 Nasal Cannula 2.00 02/17/16 18:07 101.4 02/17/16 16:00 100.0 84 20 143/61 93 Nasal Cannula 2.00 02/17/16 14:30 83 Room Air 02/17/16 12:00 99.2 70 20 139/61 94 Room Air 02/17/16 11:33 88 Room Air I & O 02/18/16 07:00 Intake Total 3620 ml Output Total 700 ml Balance 2920 ml General Appearance: Mild Distress HEENT: PERRL/EOMI Normal ENT Inspection Pharynx Normal Neck: Full Range of Motion Normal Inspection Non Tender Supple Carotid Bruit Respiratory: Chest Non Tender No Accessory Muscle Use No Respiratory Distress Other (Loose sounding cough noted slightly diminished breath sounds in the right base with rales and rhonchi chest is clear elsewhere) Cardiovascular: Regular Rate, Rhythm No Edema No Gallop No JVD No Murmur Normal Peripheral Pulses Capillary Refill: Less Than 3 Seconds Gastrointestinal: non tender soft Extremity: Normal Inspection Normal Range of Motion Non Tender No Calf Tenderness No Pedal Edema Neurologic/Psychiatric: Alert Oriented x3 No Motor/Sensory Deficits Normal Mood/Affect Skin: Normal Color Warm/Dry Lymphatic: No Adenopathy Results Lab Laboratory Tests 02/16/16 11:44 02/17/16 05:40 02/18/16 06:00 Assessment/Plan Assessment/Plan S/P aspiration during CPR s/p syncope vasal vagal -- doubt true cardiac arrest -Agree with Zosyn for now -SVNs PT appears diaphoretic -telemetry and check troponins ARF improved with IVF Clinical Quality Measures DVT/VTE Risk/Contraindication: Risk Factor Score Per Nursin RFS Level Per Nursing on Admit: 4+=Very High CAIN JONES DO Feb 18, 2016 09:25
--- NOTE | 2016-02-18 11:21 | Progress Note ---
Subjective Subjective/Events-last exam Patient did not sleep well last night just to being slightly uncomfortable. He feels a little bit fatigued. He has sore throat. He has not had any nausea or vomiting since being in the hospital. He is passing flatus. He had a bowel movement yesterday. He denies any nausea vomiting fever sweats chills shortness of breath or chest pain. Objective Exam Vital Signs Date Time Temp Pulse Resp B/P Pulse Ox O2 Delivery O2 Flow Rate FiO2 02/18/16 08:00 99.2 78 20 139/57 93 Nasal Cannula 2.00 02/18/16 07:42 Nasal Cannula 3.00 02/18/16 06:47 91 Nasal Cannula 3.00 02/18/16 04:00 100.0 77 20 142/55 91 Nasal Cannula 2.00 02/18/16 02:30 Nasal Cannula 3.00 02/18/16 00:00 99.8 80 20 132/60 93 Nasal Cannula 2.00 02/17/16 22:36 Nasal Cannula 2.00 02/17/16 21:00 Room Air 02/17/16 20:00 99.7 89 20 128/56 93 Nasal Cannula 2.00 02/17/16 19:01 101.4 02/17/16 18:32 90 Nasal Cannula 2.00 02/17/16 18:07 101.4 02/17/16 16:00 100.0 84 20 143/61 93 Nasal Cannula 2.00 02/17/16 14:30 83 Room Air 02/17/16 12:00 99.2 70 20 139/61 94 Room Air 02/17/16 11:33 88 Room Air I & O 02/18/16 07:00 Intake Total 3620 ml Output Total 700 ml Balance 2920 ml Capillary Refill : Less Than 3 Seconds General Appearance: No Apparent Distress (lying in bed) HEENT: PERRL/EOMI Normal ENT Inspection Pharynx Normal Neck: Full Range of Motion Normal Inspection Non Tender Supple Carotid Bruit Respiratory: Chest Non Tender No Accessory Muscle Use No Respiratory Distress Other (Loose sounding cough noted slightly diminished breath sounds in the right base with rales and rhonchi chest is clear elsewhere) Cardiovascular: Regular Rate, Rhythm Gastrointestinal: non tender (no guarding or rebounding no palpable masses) soft Extremity: Normal Inspection Non Tender No Calf Tenderness No Pedal Edema Neurologic/Psychiatric: Alert Oriented x3 No Motor/Sensory Deficits Normal Mood/Affect Skin: Normal Color Warm/Dry Lymphatic: No Adenopathy Results Lab Laboratory Tests 02/18/16 06:00: Alanine Aminotransferase (ALT/SGPT) 11, Albumin 3.2, Alkaline Phosphatase 66, Anion Gap 10, Aspartate Amino Transf (AST/SGOT) 47H, BUN/Creatinine Ratio 13, Basophils # (Auto) 0.0, Basophils (%) (Auto) 0, Blood Urea Nitrogen 14, Calcium Level 7.9L, Carbon Dioxide Level 17L, Chloride Level 111H, Creatinine 1.07, Eosinophils # (Auto) 0.0, Eosinophils (%) (Auto) 0, Estimat Glomerular Filtration Rate > 60, Glucose Level 120H, Hematocrit 35L, Hemoglobin 12.0L, Lymphocytes # (Auto) 0.8L, Lymphocytes (%) (Auto) 10L, Mean Corpuscular Hemoglobin 31, Mean Corpuscular Hemoglobin Concent 35, Mean Corpuscular Volume 90, Mean Platelet Volume 9.4, Monocytes # (Auto) 0.8, Monocytes (%) (Auto) 10, Neutrophils # (Auto) 6.6, Neutrophils (%) (Auto) 80H, Platelet Count 141, Potassium Level 3.8, Red Blood Count 3.86L, Red Cell Distribution Width 12.7, Sodium Level 138, Total Bilirubin 1.2H, Total Protein 6.0L, White Blood Count 8.2 Microbiology 02/16/16 Blood Culture - Preliminary, Resulted No growth Assessment/Plan Assessment/Plan Assessment/Plan s/p cardiac resuscitation syncopal episode aspiraiton pneumonitis nausea and vomiting hypokalemia Not had any nausea or vomiting, he is passing flatus and had a bowel movement yesterday. He has no abdominal pain. Would recommend slowly advancing diet. We'll sign off at this time. If needed please reconsult. Clinical Quality Measures DVT/VTE Risk/Contraindication: Risk Factor Score Per Nursin RFS Level Per Nursing on Admit: 4+=Very High JANET GALAN DO Feb 18, 2016 11:21
[2016-02-18] MEDS ORDERED: LIDOCAINE 1% INJ 20 ML (XYLOCAINE) VIAL ONE (16:24)
[2016-02-18] MEDS ORDERED: VERAPAMIL 5 MG/2 ML (CALAN) VIAL IV ONE (16:25)
[2016-02-18] MEDS ORDERED: MIDAZOLAM 5 MG/5 ML (VERSED) VIAL ONE (16:25)
[2016-02-18] MEDS ORDERED: HEParin (CATH LAB) 2,000 ML IV ONE (16:25)
[2016-02-18] MEDS ORDERED: NS IV 1000 ML 1,000 ML ONE (16:25)
[2016-02-18] MEDS ORDERED: fentaNYL INJECTION 100 MCG/2 ML AMP ONE (16:25)
[2016-02-18] MEDS ORDERED: NITROGLYCERIN DRIP 25 MG/D5W 250 ML IV ONE (16:26)
[2016-02-18] MEDS ORDERED: HEParin 1000 UNIT/ML (10ML VIAL) FOR BOLUS ONE (16:36)
--- NOTE | 2016-02-18 17:14 | Cardiac Procedure Note-CS/ASA ---
Pre-Procedure Note Pre-Op Procedure Note H&P Reviewed The H&P was reviewed, patient examined and no changes noted. Date H&P Reviewed: Feb 18, 2016 Time H&P Reviewed: 17:14 Conscious Sedation Pre-Proced Time Reviewed: 17:14 ASA Class: 3 Airway Mallampati Classification: (nuiqsut appropriate class) I. II. III, IV Lungs Heart ASA score ASA 1: a normal healthy patient ASA 2: a patient with a mild systemic disease (mid diabetes, controlled hypertension, obesity ASA 3: a patient with a severe systemic disease that limits activity (angina , COPD, prior Myocardial infarction) ASA 4: a patient with an incapacitating disease that is a constant threat to life (CHF, renal failure) ASA 5: a moribund patient not expected to survive 24 hrs. (ruptured aneurysm) ASA 6: a declared brain patient whose organs are being harvested. For emergent operations, add the letter E after the classification Grade 1 Sedation Plan: Analgesia, Amnesia, Plan communicated to team members, Discussed options with patient/fam, Discussed risks with patient/fam Note The patient is an appropriate candidate to undergo the planned procedure, sedation, and anesthesia. The patient immediately re-assessed prior to indication. Ji MOSQUERA MD Feb 18, 2016 5:14 pm
--- NOTE | 2016-02-18 17:14 | Consultation-Cardiology ---
HPI-Cardiology Cardiology Consultation: Date of Consultation 02/18/16 Date of Admission Attending Physician Roderick Lindo MD Admitting Physician Jignesh Argueta MD Consulting Physician Ji ANGELES MD HPI: Chief Complaint: chest pain this is a 86-year-old gentleman who is a poor historian. However the history that I have gotten is that he had some kind of a syncopal attack. And received CPR at the halfway. During CPR he probably aspirated as well. Cardiology was consulted because the patient complained of chest discomfort. When I saw him he initially told me that he had some chest discomfort but then later denied having any chest discomfort. He denies having any shortness of breath, palpitation, lower external to swelling, syncope or near syncope in the last 24 hours. Review of Systems-Cardiology Review of Systems Constitutional: No As described under HPI, No no symptoms reported, No chills, No fever, No lightheadedness, No malaise, No tiredness, No weight loss, No weight gain, No other Eyes: No As described under HPI, No no symptoms reported, No blindness, No blurred vision, No contact lenses, No drainage, No decreased acuity, No foreign body sensation, No glasses, No inflammation, No pain, No photophobia, No previous injury, No shadows, No tunnel vision, No other, No vision change Ears/Nose/Throat: No As described under HPI, No no symptoms reported, No chronic hearing loss, No epistaxis, No ear discharge, No ear pain, No loose teeth, No mouth pain, No mouth swelling, No nasal drainage, No nose pain, No recent hearing loss, No throat pain, No throat swelling, No ulcerations, No other Respiratory: No no symptoms reported, No As described under HPI, No cough, No orthopnea, No shortness of breath, No SOB with excertion, No SOB at rest, No stridor, No wheezing, No other Cardiovascular: chest pain syncope Gastrointestinal: No no symptoms reported, No As described under HPI, No abdomen distended, No abdominal pain, No blood streaked bowels, No constipation , No diarrhea, No difficulty swallowing, No nausea, No poor appetite, No poor fluid intake, No rectal bleeding, No vomiting, No other, No nausea/vomiting/ diarrhea, No stool coloration changes Genitourinary: No no symptoms reported, No As described under HPI, No burning, No dysuria, No discharge, No frequency, No flank pain, No hematuria, No incontinence, No pain, No urgency, No other, No urine frequency changes, No urine coloration changes Musculoskeletal: No no symptoms reported, No As describe under HPI, No back pain, No gout, No joint pain, No joint swelling, No muscle pain, No muscle stiffness, No neck pain, No other Skin: No no symptoms reported, No As described under HPI, No change in color, No change in hair/nails, No dryness, No lesions, No lumps, No rash, No other, No skin related problems, No ulcerations, No rash on exposed areas, No ulcerations on exposed areas Psychiatric/Neurological: No As described under HPI, No anxiety, No depression , No emotional problems, No focal weakness, No headache, No no symptoms reported , No numbness, No other, No pre-existing deficit, No seizure, No syncope, No tingling, No tremors, No weakness Hematologic: No no symptoms reported, No As described under HPI, No anemia, No blood clots, No easy bleeding, No easy bruising, No swollen glands, No other, No bleeding abnormalities All Other Systems Reviewed Negative Unless Noted: Yes UKW-[id number]-Kdeipr Hx Patient Social History Employed/Student: retired Alcohol Use: Denies Use Recreational Drug Use: No Smoking Status: Former Smoker Former smoker/When Quit: Feb 19, 1979 Recent Foreign Travel: No Recent Infectious Disease Expo: No Hospitalization with Isolation: Denies Physical Abuse Screen: No Sexual Abuse: No Immunizations Up To Date Date of Influenza Vaccine: Nov 20, 2015 Past Medical History PMH As described under Assessment. Family Medical History Family History: CANCER 19 FATHER G8 BROTHER G8 BROTHER G8 SISTER FH: cancer Allergies and Home Medications Allergies Coded Allergies: No Known Drug Allergies (Verified , 01/05/15) Uncoded Allergies: Nka (Allergy, Mild, 09/10/07) Home Medications Aspirin 325 Mg Tablet 325 MG PO DAILY PRN PRN PAIN (Reported) Polyvinyl Alcohol/Povidone 15 Ml Drops 1 DROP OU DAILY PRN PRN PRN DRY EYES ( Reported) Physical Exam-Cardiology Physical Exam Vital Signs/I&O Vital Sign - Last 12Hours 02/18/16 02/18/16 02/18/16 02/18/16 06:47 07:42 08:00 12:00 Temp 99.2 99.6 Pulse 78 78 Resp 20 18 B/P 139/57 118/63 Pulse Ox 91 93 93 O2 Delivery Nasal Cannula Nasal Cannula Nasal Cannula Nasal Cannula O2 Flow Rate 3.00 3.00 2.00 2.00 02/18/16 02/18/16 02/18/16 02/18/16 13:08 14:20 14:20 15:00 Temp 99.7 Pulse 83 74 82 Resp 17 14 B/P 135/70 133/88 Pulse Ox 96 96 O2 Delivery Nasal Cannula Nasal Cannula Nasal Cannula O2 Flow Rate 3.00 2.00 2.00 02/18/16 02/18/16 15:59 16:00 Pulse 88 Resp 29 B/P 125/62 Pulse Ox 100 93 O2 Delivery Nasal Cannula Nasal Cannula O2 Flow Rate 3.00 2.00 Intake and Output 02/18/16 00:00 Intake Total 2370 ml Output Total 500 ml Balance 1870 ml Capillary Refill : Less Than 3 Seconds Constitutional: No appears stated age, No AAO x 3, No apparent distress, No PERRL, No well-developed, No well-nourished, No other HEENT: No PERRL, No normal ENT inspection, No TMs normal, No pharynx normal, No scleral icterus (R), No scleral icterus (L), No pale conjunctivae (R), No pale conjunctivae (L), No photophobia, No TM abnormal (R), No TM abnormal (L), No pharyngeal erythema, No tonsillar exudate, No other, No discharge, No EOMI, No hearing is well preserved, No hard of hearing, No oral hygience is good, No ulceration, No xanthelasmas are seen Neck: No non-tender, No full range of motion, No supple, No normal inspection, No carotid bruit, No limited range of motion, No lymphadenopathy (R), No lymphadenopathy (L), No tender lateral, No tender midline, No thyromegaly, No other, No carotid pulses are 2 + bilaterally, No with good upstrokes Respiratory: No accessory muscle use, No respiratory distress, No chest tender , No chest expansion is symmetric, No chest is bilaterally symmetric, No lungs clear to percussion, No lungs clear to auscultation, No crackles, No rhonchi, No rales, No stridor, No wheezing, No pleural rub, No other Cardiovascular: No regular rate-rhythm, No irregularly irregular, No extra beats, No parasternal heave is noted, No JVD, No edema, No bradycardia, No tachycardia, No point of maximal impulse, No cardiac thrills are palpable, No S1 and S2, No gallop/S3, No gallop/S4, No diastolic murmur, No systolic murmur, No friction rub, No click, No other Gastrointestinal: No tender, No soft, No round, No distended, No pulsatile mass , No organomegaly, No guarding, No rebound, No tenderness, No hernia, No mass, No audible bowel sounds, No abnormal bowel sounds, No abdominal bruits, No spleenomegaly, No other Rectal: deferred Extremities: No normal range of motion, No non-tender, No normal inspection, No pedal edema, No calf tenderness, No normal capillary refill, No pelvis stable , No calf tenderness, No inflammation, No pedal edema, No slow capillary refill , No swelling, No other, No abrasion, No clubbing, No cyanosis, No ecchymosis, No laceration, No no lower extremity edema bilateral, No significant edema, No tenderness, No wound Neurologic/Psychiatric: No chain machine operator II-XII nml as tested, No no motor/sensory deficits, No alert, No normal mood/affect, No oriented x 3, No abnormal cerebellar tests, No abnormal chain machine operator II-XII, No abnormal gait, No aphasia, No EOM palsy, No facial droop, No motor weakness, No sensory deficit, No depressed affect, No disoriented x 3, No other, No grossly intact, No power is 5/5 both on sides Skin: No normal color, No warm/dry, No cyanosis, No cool, No diaphoresis, No damp, No ecchymosis, No jaundice, No mottled, No pallor, No rash, No tattoos/ piercings, No ulcerations, No rash on exposed areas, No ulcerations on exposed areas, No other Lymphatic: No no adenopathy, No axilla node tender (R), No axilla node tender ( L), No inguinal node tender (R), No inguinal node tender (L), No other Data Review Labs Laboratory Tests 02/18/16 06:00: Alanine Aminotransferase (ALT/SGPT) 11, Albumin 3.2, Alkaline Phosphatase 66, Anion Gap 10, Aspartate Amino Transf (AST/SGOT) 47H, BUN/Creatinine Ratio 13, Basophils # (Auto) 0.0, Basophils (%) (Auto) 0, Blood Urea Nitrogen 14, Calcium Level 7.9L, Carbon Dioxide Level 17L, Chloride Level 111H, Creatinine 1.07, Eosinophils # (Auto) 0.0, Eosinophils (%) (Auto) 0, Estimat Glomerular Filtration Rate > 60, Glucose Level 120H, Hematocrit 35L, Hemoglobin 12.0L, Lymphocytes # (Auto) 0.8L, Lymphocytes (%) (Auto) 10L, Mean Corpuscular Hemoglobin 31, Mean Corpuscular Hemoglobin Concent 35, Mean Corpuscular Volume 90, Mean Platelet Volume 9.4, Monocytes # (Auto) 0.8, Monocytes (%) (Auto) 10, Neutrophils # (Auto) 6.6, Neutrophils (%) (Auto) 80H, Platelet Count 141, Potassium Level 3.8, Red Blood Count 3.86L, Red Cell Distribution Width 12.7, Sodium Level 138, Total Bilirubin 1.2H, Total Protein 6.0L, White Blood Count 8.2 02/18/16 12:00: Troponin I 8.75*H Microbiology 02/16/16 Blood Culture - Preliminary, Resulted No growth ECG Impression ECG Comment initial EKG showed sinus rhythm with no significant ST deviation. Repeat EKG during chest pain showed sinus rhythm with ST depressions. A/P-Cardiology Assessment/Admission Diagnosis syncope, non-ST elevation AL Plan this is a 86-year-old gentleman with syncope and possible CPR at the halfway. Aspiration pneumonia being treated by the primary team. Developed chest discomfort with abnormal EKG and positive troponin. Working diagnoses non-ST elevation AL. I discussed at length with the patient and family about his wishes and how aggressive he wants us to be. I discussed about coronary angiography and all the risks and complications were explained in detail including bleeding, vascular damage, CVA, AL and even . The patient and family accepted the risks and complication and wanted to pursue coronary angiography. Coronary angiography will be planned today. Thank you for your consultation. Please call me if you have any questions. Meredith Angeles MD, FACP, FACC, FSCAI, FHRS, CCDS Interventional Cardiology Cardiac Electrophysiology Vascular Medicine and Endovascular Interventions Clinical Quality Measures DVT/VTE Risk/Contraindication: Risk Factor Score Per Nursin RFS Level Per Nursing on Admit: 4+=Very High Ji ANGELES MD Feb 18, 2016 5:14 pm
--- NOTE | 2016-02-18 18:09 | Progress Note-Post Operative ---
Post-Operative Progess Note Pre-Operative Diagnosis non-ST elevation CA Post-Operative Diagnosis non-ST elevation CA; severe three-vessel disease. Post-Op Procedure Note Date of Procedure: Feb 18, 2016 Name of Procedure: coronary angiography, left heart catheterization, right upper extremity angiography Procedure Note/Findings chronic total occlusion of the proximal RCA. 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 Severe proximal stenosis of a first of the obtuse marginal artery. Severe stenosis in the mid LAD. The LAD supplies collaterals to the left circumflex system as well as the RCA. mildly reduced LV systolic function with LVEF 45-50 percent with distal anterior apical and inferior apical hypokinesis. elevated LVEDP. we planned to perform PCI to the severe stenosis in the mid LAD. However the patient pulled his radial sheath out and refused to allow us to proceed any further. He seemed to be confused. At this point in time it was not safe to continue. Therefore a radial band was placed and he will be sent back to the ICU. I had a long discussion with the family. Anesthesia Type local anesthesia, conscious sedation Estimated blood loss (mL): 10 mL Packing: none Specimen(s) collected none Ji MOSQUERA MD Feb 18, 2016 6:09 pm
[2016-02-18] MEDS ORDERED: ASPIRIN 325 MG (5 GR) TABLET PO NR (18:19)
[2016-02-18] MEDS ORDERED: CLOPIDOGREL 300 MG (PLAVIX) TABLET PO NR (18:20)
[2016-02-18] MEDS: PIPERACILLIN SODIUM/TAZOBACTAM 4.5 GM in NORMAL SALINE (BAXTER MINI) 100 ML IV NR (19:37)
[2016-02-18] MEDS ORDERED: ATORVASTATIN 20 MG (LIPITOR) TABLET PO SCH (21:00)
[2016-02-18] MEDS: meTOprolol TARTRATE 25 MG (LOPRESSOR) TABLET PO SCH (21:33)
[2016-02-19] VITALS (15 sets, daily range): BP systolic 92–131; BP diastolic 45–68
[2016-02-19] MEDS: RT-ALBUTEROL/IPRATROPIUM 3 ML (DUONEB) VIAL INH SCH ×5 (01:23→21:09)
[2016-02-19] MEDS: PIPERACILLIN SODIUM/TAZOBACTAM 4.5 GM in NORMAL SALINE (BAXTER MINI) 100 ML IV NR ×3 (01:57→17:29)
[2016-02-19 05:03] LABS: BASOPHILS % (AUTO) 0 % (0-10); EOSINOPHILS # (AUTO) 0.1 10^3/uL (0.0-0.3); EOSINOPHILS % (AUTO) 2 % (0-10); LYMPHOCYTES # (AUTO) 0.9 X 10^3 (1.0-4.0); LYMPHOCYTES % (AUTO) 12 % (12-44); MEAN CORPUSCULAR HEMOGLOBIN 31 PG (25-34); MEAN CORPUSCULAR HGB CONC 34 G/DL (32-36); MEAN CORPUSCULAR VOLUME 90 FL (80-99); MEAN PLATELET VOLUME 9.8 FL (7.4-10.4); MONOCYTES # (AUTO) 0.7 X 10^3 (0.0-1.0); MONOCYTES % (AUTO) 10 % (0-12); NEUTROPHILS # (AUTO) 5.6 X 10^3 (1.8-7.8); NEUTROPHILS % (AUTO) 77 % (42-75); PLATELET COUNT 134 10^3/uL (130-400); RED BLOOD COUNT 3.65 10^6/uL (4.35-5.85); RED CELL DISTRIBUTION WIDTH 12.8 % (10.0-14.5); WHITE BLOOD COUNT 7.3 10^3/uL (4.3-11.0)
[2016-02-19 05:30] LABS: ANION GAP 7 MMOL/L (5-14); BLOOD UREA NITROGEN 16 MG/DL (7-18); BUN/CREATININE RATIO 14; CALCIUM 8.3 MG/DL (8.5-10.1); CARBON DIOXIDE 21 MMOL/L (21-32); CHLORIDE 109 MMOL/L (98-107); CREATININE SERUM 1.12 MG/DL (0.60-1.30); GFR ESTIMATED > 60; GLUCOSE 103 MG/DL (70-105); MAGNESIUM 1.8 MG/DL (1.8-2.4); PHOSPHORUS 1.3 MG/DL (2.3-4.7); POTASSIUM 3.9 MMOL/L (3.6-5.0); SODIUM 137 MMOL/L (135-145)
--- NOTE | 2016-02-19 07:49 | Pulmonary Progress Note ---
Subjective Subjective/Events-last exam Pt feels improved c/o cough. Son is at bedside. Exam Exam Vital Signs Date Time Temp Pulse Resp B/P Pulse Ox O2 Delivery O2 Flow Rate FiO2 02/19/16 06:17 99 Nasal Cannula 3.00 02/19/16 06:00 68 13 118/57 100 Nasal Cannula 3.00 02/19/16 05:00 72 26 102/55 96 Nasal Cannula 3.00 02/19/16 04:00 Nasal Cannula 3.00 02/19/16 04:00 99.8 70 24 114/53 92 Nasal Cannula 3.00 02/19/16 03:00 76 11 104/50 95 Nasal Cannula 3.00 02/19/16 02:00 73 22 97/50 92 Nasal Cannula 3.00 02/19/16 01:24 93 Nasal Cannula 5.00 02/19/16 01:00 71 28 103/58 94 Nasal Cannula 3.00 02/19/16 01:00 70 02/19/16 00:00 Nasal Cannula 3.00 02/19/16 00:00 99.5 77 27 100/56 92 Nasal Cannula 3.00 02/18/16 23:00 67 13 108/59 100 Nasal Cannula 3.00 02/18/16 22:51 100 Nasal Cannula 5.00 02/18/16 22:00 83 15 111/70 99 Nasal Cannula 4.00 02/18/16 21:00 Nasal Cannula 4.00 02/18/16 21:00 88 17 122/61 100 Nasal Cannula 4.00 02/18/16 20:00 100.4 92 10 120/55 96 Nasal Cannula 4.00 02/18/16 19:30 94 26 138/60 92 Nasal Cannula 4.00 02/18/16 19:00 89 12 138/60 94 Nasal Cannula 4.00 02/18/16 19:00 89 02/18/16 18:47 97 Nasal Cannula 5.00 02/18/16 18:45 80 20 132/61 95 Nasal Cannula 5.00 02/18/16 18:30 87 25 129/78 90 Nasal Cannula 5.00 02/18/16 18:15 99.6 85 14 134/73 91 Nasal Cannula 5.00 02/18/16 16:00 88 29 125/62 93 Nasal Cannula 2.00 02/18/16 15:59 100 Nasal Cannula 3.00 02/18/16 15:00 82 14 133/88 96 Nasal Cannula 2.00 02/18/16 14:20 99.7 74 17 135/70 96 Nasal Cannula 2.00 02/18/16 14:20 Nasal Cannula 3.00 02/18/16 13:08 83 02/18/16 12:00 99.6 78 18 118/63 93 Nasal Cannula 2.00 02/18/16 08:00 99.2 78 20 139/57 93 Nasal Cannula 2.00 I & O 02/19/16 07:00 Intake Total 3090 ml Output Total 875 ml Balance 2215 ml General Appearance: No Apparent Distress (lying in bed) HEENT: PERRL/EOMI Normal ENT Inspection Pharynx Normal Neck: Full Range of Motion Normal Inspection Non Tender Supple Carotid Bruit Respiratory: Chest Non Tender No Accessory Muscle Use No Respiratory Distress Other (Loose sounding cough noted slightly diminished breath sounds in the right base with rales and rhonchi chest is clear elsewhere) Cardiovascular: Regular Rate, Rhythm Capillary Refill: Less Than 3 Seconds Gastrointestinal: non tender (no guarding or rebounding no palpable masses) soft Extremity: Normal Inspection Non Tender No Calf Tenderness No Pedal Edema Neurologic/Psychiatric: Alert Oriented x3 No Motor/Sensory Deficits Normal Mood/Affect Skin: Normal Color Warm/Dry Lymphatic: No Adenopathy Results Lab Laboratory Tests 02/18/16 06:00 02/19/16 04:25 Assessment/Plan Assessment/Plan S/P aspiration during CPR s/p syncope vasal vagal -- doubt true cardiac arrest -Agree with Zosyn for now -SVNs NSTEMI s/p cath -cardiology following Cough -SVNS -Lyndon lord ARF improved with IVF Clinical Quality Measures DVT/VTE Risk/Contraindication: Risk Factor Score Per Nursin RFS Level Per Nursing on Admit: 4+=Very High CAIN JONES DO Feb 19, 2016 07:49
[2016-02-19] MEDS ORDERED: SODIUM PHOSPHATE INJ 30 MM in NS (IVPB) 100 ML IV ONE (08:15)
[2016-02-19] MEDS ORDERED: RT-ALBUTEROL/IPRATROPIUM 3 ML (DUONEB) VIAL INH PRN (08:15)
[2016-02-19] MEDS ORDERED: lisINopril 5 MG (PRINIVIL) TABLET PO SCH (09:00)
[2016-02-19] MEDS ORDERED: BENZONATATE 100 MG (TESSALON) CAPSULE PO SCH (09:00)
[2016-02-19] MEDS: meTOprolol TARTRATE 25 MG (LOPRESSOR) TABLET PO SCH ×2 (09:09→20:07)
[2016-02-19] MEDS: PANTOPRAZOLE 40 MG/10 ML (PROTONIX) VIAL IV SCH (09:09)
--- NOTE | 2016-02-19 10:10 | Diagnostic Imaging Report ---
EXAMINATION: Chest radiograph, portable AP view. DATE: February 19, 2016, at 0545 hours. INDICATION: An 86-year-old male, elevated troponin. COMPARISON: February 17, 2016. FINDINGS: Stable overall appearance of the cardiomediastinal silhouette. There is no identified pneumothorax. There are mildly prominent bilateral interstitial opacities which are new since comparison exam. There is also blunting of the right lateral costophrenic angle and streaky opacities within the lung bases. IMPRESSION: 1. New bilateral predominantly interstitial opacities most suggestive of pulmonary interstitial edema. Atypical infection would be the primary differential diagnostic consideration. 2. Potential small right pleural effusion. Dictated by: Dictated on workstation # [id number]
--- NOTE | 2016-02-19 11:08 | Progress Note-Hospitalist ---
Progress Note HPI/CC on Admission CC: Syncopal episode HPI: This is an 86yoWM clinic pt of Dr. Lam that was admitted after he was brought to ER by EMS post-cardiac arrest and CPR with return of circulation. Upon more evaluation, it appeared that he had some sort of vagal syncope due to severe vomiting. Dr. Jackson Consult: Dr. Wan requests that Dr. Jackson assist with pt. Dr. Jackson agrees. Patient Interview: Pt states that he has not vomited recently. Pt states that his throat is sore. Pt's last BM was yesterday. Pt states that he would like to DC. Physical exam revealed coarse breathing. Dr. Wan informs pt of plans for x-ray. Pt is not receiving breathing treatments. 02/18/16 progress note: Patient reports he didn't sleep last night he has a loose nonproductive cough but denied night sweats chills or fever. MAXIMUM TEMPERATURE is 100 he denies chest pain dizziness lightheadedness or palpitation. He still feels more fatigued than baseline. Progress Notes/Assess & Plan Date Seen 02/19/16 Admission Dx/Process Assessment: S/P aspiration during CPR after unresponsive episode likely due to vagal episode causing aspiration pneumonitis with current SBO with NGT in place with fever Hypokalemia ARF improved with IVF Dry eye syndrome Diagonsis/Assessment & Plan I confer with Dr. Fiore regarding afternoon events yesterday and he had become diaphoretic when he saw him about noon time miguel angel troponin to be thorough and workup showing elevated level of 8 with it being normal on admission he underwent cardiac catheter by Dr. Angeles but during the time of intervention of coronary stenosis he ripped out the catheter due to confusion Patient appears to be aspirating per the nurse so he will be placed nothing by mouth and I updated the patient and the plan and he is hungry so will initiate Clinimix for peripheral nutrition until dysphagia is ruled out Patient will go down to fourth floor today but overall prognosis is very poor Vitals stable, pleasant, oriented 3, slightly confused Regular rate and rhythm, clear to all sedation bilaterally much improved from yesterday's rales and wheezing No edema Assessment: S/P aspiration during CPR after unresponsive episode likely due to vagal episode causing aspiration pneumonitis s/p NGT Non-ST elevation DE unsuccessful intervention due to patient pulling out cardiac catheter Hypokalemia ARF improved with IVF Dry eye syndrome Dysphagia of unclear source Plan: Nothing by mouth until dysphagia screen completed due to aspiration risk CXR DuRAFAEL Goodwin DO Feb 19, 2016 11:08
[2016-02-19] MEDS: AA 4.25% W/LYTES IN D5W IV SOL 1,000 ML IV SCH ×2 (12:53→20:08)
[2016-02-19] MEDS ORDERED: ENOXAPARIN 100 MG/1 ML (LOVENOX) SYR SC SCH (14:00)
[2016-02-19] MEDS: ENOXAPARIN 80 MG/0.8 ML (LOVENOX) SYR SC SCH (14:43)
[2016-02-19] MEDS: ASPIRIN 81 MG CHEW (CHILDREN'S ASA) PO SCH (14:43)
[2016-02-19] MEDS: CLOPIDOGREL 75 MG (PLAVIX) TABLET PO SCH (14:43)
--- NOTE | 2016-02-19 15:43 | Cardiology Progress Note ---
Cardiology SOAP Progress Note Subjective: mild chest discomfort with coughing. Objective: I&O/Vital Signs Vital Sign - Last 12Hours 02/19/16 02/19/16 02/19/16 02/19/16 04:00 04:00 05:00 06:00 Temp 99.8 Pulse 70 72 68 Resp 24 26 13 B/P 114/53 102/55 118/57 Pulse Ox 92 96 100 O2 Delivery Nasal Cannula Nasal Cannula Nasal Cannula Nasal Cannula O2 Flow Rate 3.00 3.00 3.00 3.00 02/19/16 02/19/16 02/19/16 02/19/16 06:17 07:00 08:00 08:00 Temp 99.6 Pulse 79 Pulse Ox 99 O2 Delivery Nasal Cannula Nasal Cannula O2 Flow Rate 3.00 3.00 02/19/16 02/19/16 02/19/16 02/19/16 09:00 12:00 13:00 14:50 Temp 99.4 Pulse 65 Pulse Ox 100 89 O2 Delivery Nasal Cannula Room Air Room Air O2 Flow Rate 2.00 Intake and Output 02/19/16 00:00 Intake Total 1795 ml Output Total 450 ml Balance 1345 ml Weight (Pounds): 158 Weight (Ounces): 0.0 Weight (Calculated Kilograms): 71.548238 Constitutional: No appears stated age, No AAO x 3, No apparent distress, No PERRL, No well-developed, No well-nourished, No other Respiratory: No accessory muscle use, No respiratory distress, No chest tender , No chest expansion is symmetric, No chest is bilaterally symmetric, No lungs clear to percussion, No lungs clear to auscultation, No crackles, No rhonchi, No rales, No stridor, No wheezing, No pleural rub, No other Cardiovascular: No regular rate-rhythm, No irregularly irregular, No extra beats, No parasternal heave is noted, No JVD, No edema, No bradycardia, No tachycardia, No point of maximal impulse, No cardiac thrills are palpable, No S1 and S2, No gallop/S3, No gallop/S4, No diastolic murmur, No systolic murmur, No friction rub, No click, No other Gastrointestional: No tender, No soft, No round, No distended, No pulsatile mass, No organomegaly, No guarding, No rebound, No tenderness, No hernia, No mass, No audible bowel sounds, No abnormal bowel sounds, No abdominal bruits, No spleenomegaly, No other Extremities: No normal range of motion, No non-tender, No normal inspection, No pedal edema, No calf tenderness, No normal capillary refill, No pelvis stable , No calf tenderness, No inflammation, No pedal edema, No slow capillary refill , No swelling, No other, No abrasion, No clubbing, No cyanosis, No ecchymosis, No laceration, No no lower extremity edema bilateral, No significant edema, No tenderness, No wound Neurologic/Psychiatric: No rangeland management specialist II-XII nml as tested, No no motor/sensory deficits, No alert, No normal mood/affect, No oriented x 3, No abnormal cerebellar tests, No abnormal rangeland management specialist II-XII, No abnormal gait, No aphasia, No EOM palsy, No facial droop, No motor weakness, No sensory deficit, No depressed affect, No disoriented x 3, No other, No grossly intact, No power is 5/5 both on sides Skin: No normal color, No warm/dry, No cyanosis, No cool, No diaphoresis, No damp, No ecchymosis, No jaundice, No mottled, No pallor, No rash, No tattoos/ piercings, No ulcerations, No rash on exposed areas, No ulcerations on exposed areas, No other Results/Procedures: Labs Laboratory Tests 02/19/16 04:25: Anion Gap 7, BUN/Creatinine Ratio 14, Basophils # (Auto) 0.0, Basophils (%) ( Auto) 0, Blood Urea Nitrogen 16, Calcium Level 8.3L, Carbon Dioxide Level 21, Chloride Level 109H, Creatinine 1.12, Eosinophils # (Auto) 0.1, Eosinophils (%) (Auto) 2, Estimat Glomerular Filtration Rate > 60, Glucose Level 103, Hematocrit 33L, Hemoglobin 11.3L, Lymphocytes # (Auto) 0.9L, Lymphocytes (%) ( Auto) 12, Magnesium Level 1.8, Mean Corpuscular Hemoglobin 31, Mean Corpuscular Hemoglobin Concent 34, Mean Corpuscular Volume 90, Mean Platelet Volume 9.8, Monocytes # (Auto) 0.7, Monocytes (%) (Auto) 10, Neutrophils # (Auto) 5.6, Neutrophils (%) (Auto) 77H, Phosphorus Level 1.3L, Platelet Count 134, Potassium Level 3.9, Red Blood Count 3.65L, Red Cell Distribution Width 12.8, Sodium Level 137, White Blood Count 7.3 Microbiology 02/16/16 Blood Culture - Preliminary, Resulted No growth A/P: Assessment/Dx: pneumonia, aspiration, Non-ST elevation [place], Possible cardiac arrest. Plan: non-ST elevation [place]: He was taken to the bolt labeler after informed consent was taken. Coronary angiography was performed via right radial approach. He was given minimal dose of benzodiazepine and narcotics. However he became acutely confused and combative and pulled the right radial sheath out. He refused to comply with directions. At that point in time the safest approach was to stop the procedure. PCI was not done. 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 LAD had 90 percent mid disease and was supplying collaterals to the left circumflex artery as well as RCA. I discussed at length with the family and with the patient today. He does not remember the events from yesterday. It is most likely an effect of narcotics or benzodiazepines. I discussed with the patient and family whether he would like medical therapy alone or medical therapy with another attempt at PCI. The patient and the family would like PCI. In my opinion the safest way is to intubate and do the PCI with general anesthesia. I would request Dr. Fiore and the medicine team to comment as to whether general anesthesia and intubation is an option in this patient and if yes, please also advise on the timing. While we are discussing the plan for PCI. We will continue medical therapy with aspirin, Plavix, statin, beta jaxson, XIMENA inhibitor, low molecular weight heparin. Since he is on revascularized non-ST elevation [place], I will recommend ICU stay for at least another 24 hours or so. Thank you for your consultation. Please call me if you have any questions. Meredith Angeles MD, FACP, FACC, FSCAI, FHRS, CCDS Interventional Cardiology Cardiac Electrophysiology Vascular Medicine and Endovascular Interventions Ji ANGELES MD Feb 19, 2016 3:43 pm
[2016-02-19] MEDS: ATORVASTATIN 40 MG (LIPITOR) TABLET PO SCH (20:07)
[2016-02-19] MEDS ORDERED: HALOPERIDOL 5 MG/ML (HALDOL) AMP IM PRN (22:45)
[2016-02-20] VITALS: BP 141/74
[2016-02-20] MEDS: PIPERACILLIN SODIUM/TAZOBACTAM 4.5 GM in NORMAL SALINE (BAXTER MINI) 100 ML IV NR ×3 (01:06→17:09)
[2016-02-20] MEDS: ENOXAPARIN 80 MG/0.8 ML (LOVENOX) SYR SC SCH ×2 (01:06→14:11)
[2016-02-20] MEDS: RT-ALBUTEROL/IPRATROPIUM 3 ML (DUONEB) VIAL INH SCH ×4 (02:52→20:31)
[2016-02-20 03:56] VITALS: BP 142/68
[2016-02-20 04:09] LABS: BASOPHILS % (AUTO) 0 % (0-10); EOSINOPHILS # (AUTO) 0.2 10^3/uL (0.0-0.3); EOSINOPHILS % (AUTO) 3 % (0-10); LYMPHOCYTES # (AUTO) 0.8 X 10^3 (1.0-4.0); LYMPHOCYTES % (AUTO) 15 % (12-44); MEAN CORPUSCULAR HEMOGLOBIN 31 PG (25-34); MEAN CORPUSCULAR HGB CONC 35 G/DL (32-36); MEAN CORPUSCULAR VOLUME 88 FL (80-99); MEAN PLATELET VOLUME 9.5 FL (7.4-10.4); MONOCYTES # (AUTO) 0.4 X 10^3 (0.0-1.0); MONOCYTES % (AUTO) 7 % (0-12); NEUTROPHILS # (AUTO) 4.1 X 10^3 (1.8-7.8); NEUTROPHILS % (AUTO) 75 % (42-75); PLATELET COUNT 148 10^3/uL (130-400); RED BLOOD COUNT 3.76 10^6/uL (4.35-5.85); RED CELL DISTRIBUTION WIDTH 12.5 % (10.0-14.5); WHITE BLOOD COUNT 5.5 10^3/uL (4.3-11.0)
[2016-02-20 04:31] LABS: ANION GAP 13 MMOL/L (5-14); BLOOD UREA NITROGEN 22 MG/DL (7-18); BUN/CREATININE RATIO 21; CALCIUM 8.4 MG/DL (8.5-10.1); CARBON DIOXIDE 18 MMOL/L (21-32); CHLORIDE 109 MMOL/L (98-107); CREATININE SERUM 1.05 MG/DL (0.60-1.30); GFR ESTIMATED > 60; GLUCOSE 111 MG/DL (70-105); POTASSIUM 3.5 MMOL/L (3.6-5.0); SODIUM 140 MMOL/L (135-145)
[2016-02-20] MEDS ORDERED: MAGNESIUM 1 GM/100 ML IVPB 100 ML IV SCH (06:00)
[2016-02-20] MEDS ORDERED: KCL 20 MEQ TAB (K-DUR) PO SCH (06:00)
[2016-02-20] MEDS ORDERED: POTASSIUM CL 10MEQ/50ML IVPB 50 ML IV SCH (06:00)
[2016-02-20] MEDS: AA 4.25% W/LYTES IN D5W IV SOL 1,000 ML IV SCH ×2 (06:08→17:09)
--- NOTE | 2016-02-20 07:03 | Diagnostic Imaging Report ---
EXAMINATION: Chest radiograph, portable AP view. DATE: February 20, 2016, at 0512 hours. INDICATION: 86-year-old male, elevated troponin. Chest pain. COMPARISON: February 19, 2016. FINDINGS: Stable overall appearance of the cardiomediastinal silhouette. There is no identified pneumothorax. There is blunting of the right lateral costophrenic angle. There is nonspecific right basilar airspace consolidation. There are mildly prominent bilateral interstitial opacities. IMPRESSION: Unchanged mildly prominent bilateral interstitial opacities, nonspecific right basilar airspace consolidation, and probable small right pleural effusion. Dictated by: Dictated on workstation # [id number]
--- NOTE | 2016-02-20 07:35 | Pulmonary Progress Note ---
Subjective Subjective/Events-last exam No complications noted. Exam Exam Vital Signs Date Time Temp Pulse Resp B/P Pulse Ox O2 Delivery O2 Flow Rate FiO2 02/20/16 03:56 98.2 80 18 142/68 93 Room Air 02/20/16 02:52 88 Room Air 02/20/16 01:00 74 02/20/16 00:00 98.6 71 16 141/74 94 Room Air 02/19/16 21:10 92 Nasal Cannula 2.00 02/19/16 21:00 Room Air 02/19/16 20:00 99.0 70 16 125/65 92 Room Air 02/19/16 19:00 89 02/19/16 17:00 Nasal Cannula 3.00 02/19/16 16:00 99.9 80 16 131/63 96 Room Air 02/19/16 14:50 89 Room Air 02/19/16 13:00 65 02/19/16 13:00 65 32 111/59 99 Room Air 02/19/16 12:00 99.4 100 Room Air 02/19/16 11:00 65 34 116/68 Nasal Cannula 2.00 02/19/16 10:00 64 35 108/47 100 Nasal Cannula 2.00 02/19/16 09:00 76 28 116/56 Nasal Cannula 2.00 02/19/16 09:00 Nasal Cannula 2.00 02/19/16 08:00 Nasal Cannula 3.00 02/19/16 08:00 74 8 92/45 99 Nasal Cannula 3.00 02/19/16 08:00 99.6 I & O 02/20/16 07:00 Intake Total 740 ml Output Total 750 ml Balance -10 ml General Appearance: No Apparent Distress (lying in bed) HEENT: PERRL/EOMI Normal ENT Inspection Pharynx Normal Neck: Full Range of Motion Normal Inspection Non Tender Supple Carotid Bruit Respiratory: Chest Non Tender No Accessory Muscle Use No Respiratory Distress Other (Loose sounding cough noted slightly diminished breath sounds in the right base with rales and rhonchi chest is clear elsewhere) Cardiovascular: Regular Rate, Rhythm Capillary Refill: Less Than 3 Seconds Gastrointestinal: non tender (no guarding or rebounding no palpable masses) soft Extremity: Normal Inspection Non Tender No Calf Tenderness No Pedal Edema Neurologic/Psychiatric: Alert Oriented x3 No Motor/Sensory Deficits Normal Mood/Affect Skin: Normal Color Warm/Dry Lymphatic: No Adenopathy Results Lab Laboratory Tests 02/19/16 04:25 02/20/16 03:56 Assessment/Plan Assessment/Plan S/P aspiration during CPR s/p syncope vasal vagal -- doubt true cardiac arrest -Agree with Zosyn for now -SVNs NSTEMI s/p cath -cardiology following Cough -SVNS -Tessalon pearls ARF improved with IVF Dysphagia -speech therapy consult for swallow eval Clinical Quality Measures DVT/VTE Risk/Contraindication: Risk Factor Score Per Nursin RFS Level Per Nursing on Admit: 4+=Very High CAIN JONES DO Feb 20, 2016 07:35
[2016-02-20] MEDS: PANTOPRAZOLE 40 MG/10 ML (PROTONIX) VIAL IV SCH (08:44)
[2016-02-20] MEDS: meTOprolol TARTRATE 25 MG (LOPRESSOR) TABLET PO SCH ×2 (08:44→19:53)
[2016-02-20 08:45] VITALS: BP 153/77
[2016-02-20] MEDS: CLOPIDOGREL 75 MG (PLAVIX) TABLET PO SCH (08:45)
[2016-02-20] MEDS: lisINopril 5 MG (PRINIVIL) TABLET PO SCH (08:45)
[2016-02-20] MEDS: ASPIRIN 81 MG CHEW (CHILDREN'S ASA) PO SCH (08:45)
[2016-02-20 12:00] VITALS: BP 126/78
--- NOTE | 2016-02-20 13:03 | Progress Note-Hospitalist ---
Progress Note HPI/CC on Admission CC: Syncopal episode HPI: This is an 86yoWM clinic pt of Dr. Lam that was admitted after he was brought to ER by EMS post-cardiac arrest and CPR with return of circulation. Upon more evaluation, it appeared that he had some sort of vagal syncope due to severe vomiting. Dr. Jackson Consult: Dr. Armstrong requests that Dr. Jackson assist with pt. Dr. Jackson agrees. Patient Interview: Pt states that he has not vomited recently. Pt states that his throat is sore. Pt's last BM was yesterday. Pt states that he would like to DC. Physical exam revealed coarse breathing. Dr. Armstrong informs pt of plans for x-ray. Pt is not receiving breathing treatments. 02/18/16 progress note: Patient reports he didn't sleep last night he has a loose nonproductive cough but denied night sweats chills or fever. MAXIMUM TEMPERATURE is 100 he denies chest pain dizziness lightheadedness or palpitation. He still feels more fatigued than baseline. Progress Notes/Assess & Plan Date Seen 02/20/16 Admission Dx/Process Assessment: S/P aspiration during CPR after unresponsive episode likely due to vagal episode causing aspiration pneumonitis with current SBO with NGT in place with fever Hypokalemia ARF improved with IVF Dry eye syndrome Diagonsis/Assessment & Plan Patient experienced delirium yesterday and some sort of ing syndrome so required Haldol and Ativan with good results Patient still confused and introduced his and son as his mother and brother who are at the bedside Swallow study will be performed tomorrow that he is tolerating some liquid and meds with applesauce Overall prognosis is very poor considering delirium and co-morbidities Vitals stable, pleasant, oriented 3, slightly confused Regular rate and rhythm, clear to all sedation bilaterally much improved from yesterday No edema Laboratory Tests 02/20/16 03:56 Assessment: S/P aspiration during CPR after unresponsive episode likely due to vagal episode causing aspiration pneumonitis s/p NGT Non-ST elevation [place] unsuccessful intervention due to patient pulling out cardiac catheter Hypokalemia ARF improved with IVF Dry eye syndrome Dysphagia of unclear source Delirium improved on Haldol and Ativan Plan: Minimal by mouth until dysphagia screen completed due to aspiration risk Duoneanthony Fengsyedith Poor prognosis RAFAEL ARMSTRONG DO Feb 20, 2016 13:03
--- NOTE | 2016-02-20 13:18 | Cardiology Progress Note ---
Cardiology SOAP Progress Note Subjective: Mild chest discomfort Objective: I&O/Vital Signs Vital Sign - Last 12Hours 02/20/16 02/20/16 02/20/16 02/20/16 02:52 03:56 07:00 08:45 Temp 98.2 97.7 Pulse 80 74 73 Resp 18 11 B/P 142/68 153/77 Pulse Ox 88 93 98 O2 Delivery Room Air Room Air Room Air 02/20/16 02/20/16 02/20/16 09:00 09:15 12:00 Temp 98.6 Pulse 63 Resp 26 B/P 126/78 Pulse Ox 95 95 O2 Delivery Room Air Nasal Cannula Room Air O2 Flow Rate 2.00 Intake and Output 02/20/16 00:00 Intake Total 640 ml Output Total 200 ml Balance 440 ml Weight (Pounds): 158 Weight (Ounces): 0.0 Weight (Calculated Kilograms): 71.457252 Constitutional: No appears stated age, No AAO x 3, No apparent distress, No PERRL, No well-developed, No well-nourished, No other Respiratory: No accessory muscle use, No respiratory distress, No chest tender , No chest expansion is symmetric, No chest is bilaterally symmetric, No lungs clear to percussion, No lungs clear to auscultation, No crackles, No rhonchi, No rales, No stridor, No wheezing, No pleural rub, No other Cardiovascular: No regular rate-rhythm, No irregularly irregular, No extra beats, No parasternal heave is noted, No JVD, No edema, No bradycardia, No tachycardia, No point of maximal impulse, No cardiac thrills are palpable, No S1 and S2, No gallop/S3, No gallop/S4, No diastolic murmur, No systolic murmur, No friction rub, No click, No other Gastrointestional: No tender, No soft, No round, No distended, No pulsatile mass, No organomegaly, No guarding, No rebound, No tenderness, No hernia, No mass, No audible bowel sounds, No abnormal bowel sounds, No abdominal bruits, No spleenomegaly, No other Extremities: No normal range of motion, No non-tender, No normal inspection, No pedal edema, No calf tenderness, No normal capillary refill, No pelvis stable , No calf tenderness, No inflammation, No pedal edema, No slow capillary refill , No swelling, No other, No abrasion, No clubbing, No cyanosis, No ecchymosis, No laceration, No no lower extremity edema bilateral, No significant edema, No tenderness, No wound Neurologic/Psychiatric: No beef cattle grazier II-XII nml as tested, No no motor/sensory deficits, No alert, No normal mood/affect, No oriented x 3, No abnormal cerebellar tests, No abnormal beef cattle grazier II-XII, No abnormal gait, No aphasia, No EOM palsy, No facial droop, No motor weakness, No sensory deficit, No depressed affect, No disoriented x 3, No other, No grossly intact, No power is 5/5 both on sides Skin: No normal color, No warm/dry, No cyanosis, No cool, No diaphoresis, No damp, No ecchymosis, No jaundice, No mottled, No pallor, No rash, No tattoos/ piercings, No ulcerations, No rash on exposed areas, No ulcerations on exposed areas, No other Results/Procedures: Labs Laboratory Tests 02/20/16 03:56: Anion Gap 13, BUN/Creatinine Ratio 21, Basophils # (Auto) 0.0, Basophils (%) ( Auto) 0, Blood Urea Nitrogen 22H, Calcium Level 8.4L, Carbon Dioxide Level 18L, Chloride Level 109H, Creatinine 1.05, Eosinophils # (Auto) 0.2, Eosinophils (%) (Auto) 3, Estimat Glomerular Filtration Rate > 60, Glucose Level 111H, Hematocrit 33L, Hemoglobin 11.5L, Lymphocytes # (Auto) 0.8L, Lymphocytes (%) ( Auto) 15, Magnesium Level 1.8, Mean Corpuscular Hemoglobin 31, Mean Corpuscular Hemoglobin Concent 35, Mean Corpuscular Volume 88, Mean Platelet Volume 9.5, Monocytes # (Auto) 0.4, Monocytes (%) (Auto) 7, Neutrophils # (Auto) 4.1, Neutrophils (%) (Auto) 75, Platelet Count 148, Potassium Level 3.5L, Red Blood Count 3.76L, Red Cell Distribution Width 12.5, Sodium Level 140, White Blood Count 5.5 Microbiology 02/16/16 Blood Culture - Preliminary, Resulted No growth A/P: Assessment/Dx: pneumonia, aspiration, Non-ST elevation [place], Possible cardiac arrest. Plan: non-ST elevation [place]: He was taken to the candlemaking laborer after informed consent was taken. Coronary angiography was performed via right radial approach. He was given minimal dose of benzodiazepine and narcotics. However he became acutely confused and combative and pulled the right radial sheath out. He refused to comply with directions. At that point in time the safest approach was to stop the procedure. PCI was not done. 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 LAD had 90 percent mid disease and was supplying collaterals to the left circumflex artery as well as RCA. I discussed at length with the family and with the patient today. He does not remember the events from yesterday. It is most likely an effect of narcotics or benzodiazepines. I discussed with the patient and family whether he would like medical therapy alone or medical therapy with another attempt at PCI. The patient and the family would like PCI. In my opinion the safest way is to intubate and do the PCI with general anesthesia. I would request Dr. Fiore and the medicine team to comment as to whether general anesthesia and intubation is an option in this patient and if yes, please also advise on the timing. While we are discussing the plan for PCI. We will continue medical therapy with aspirin, Plavix, statin, beta jaxson, XIMENA inhibitor, low molecular weight heparin. Patient can be made stepdown status. Ji MOSQUERA MD Feb 20, 2016 1:18 pm
[2016-02-20] MEDS: ACETAMINOPHEN 325 MG TABLET/CAPLET (TYLENOL) PO PRN ×2 (15:13→19:53)
[2016-02-20 15:35] VITALS: BP 175/86
[2016-02-20 19:27] VITALS: BP 149/82
[2016-02-20] MEDS: ATORVASTATIN 40 MG (LIPITOR) TABLET PO SCH (19:52)
[2016-02-21] VITALS (17 sets, daily range): BP systolic 123–178; BP diastolic 62–96
[2016-02-21] MEDS: ENOXAPARIN 80 MG/0.8 ML (LOVENOX) SYR SC SCH ×2 (01:21→13:58)
[2016-02-21] MEDS: PIPERACILLIN SODIUM/TAZOBACTAM 4.5 GM in NORMAL SALINE (BAXTER MINI) 100 ML IV NR ×3 (01:21→17:25)
[2016-02-21] MEDS ORDERED: ROCURONIUM 50 MG/5 ML (ZEMURON) VIAL IV ONE (02:00)
[2016-02-21] MEDS: RT-ALBUTEROL/IPRATROPIUM 3 ML (DUONEB) VIAL INH SCH ×4 (02:32→20:22)
[2016-02-21] MEDS: AA 4.25% W/LYTES IN D5W IV SOL 1,000 ML IV SCH ×2 (04:34→13:00)
[2016-02-21 05:07] LABS: BASOPHILS % (AUTO) 0 % (0-10); EOSINOPHILS # (AUTO) 0.2 10^3/uL (0.0-0.3); EOSINOPHILS % (AUTO) 4 % (0-10); LYMPHOCYTES # (AUTO) 0.7 X 10^3 (1.0-4.0); LYMPHOCYTES % (AUTO) 13 % (12-44); MEAN CORPUSCULAR HEMOGLOBIN 31 PG (25-34); MEAN CORPUSCULAR HGB CONC 35 G/DL (32-36); MEAN CORPUSCULAR VOLUME 88 FL (80-99); MEAN PLATELET VOLUME 9.7 FL (7.4-10.4); MONOCYTES # (AUTO) 0.4 X 10^3 (0.0-1.0); MONOCYTES % (AUTO) 7 % (0-12); NEUTROPHILS # (AUTO) 3.9 X 10^3 (1.8-7.8); NEUTROPHILS % (AUTO) 76 % (42-75); PLATELET COUNT 177 10^3/uL (130-400); RED BLOOD COUNT 3.73 10^6/uL (4.35-5.85); RED CELL DISTRIBUTION WIDTH 12.6 % (10.0-14.5); WHITE BLOOD COUNT 5.1 10^3/uL (4.3-11.0)
[2016-02-21 05:31] LABS: ANION GAP 11 MMOL/L (5-14); BLOOD UREA NITROGEN 19 MG/DL (7-18); BUN/CREATININE RATIO 22; CALCIUM 8.7 MG/DL (8.5-10.1); CARBON DIOXIDE 20 MMOL/L (21-32); CHLORIDE 109 MMOL/L (98-107); CREATININE SERUM 0.87 MG/DL (0.60-1.30); GFR ESTIMATED > 60; GLUCOSE 109 MG/DL (70-105); POTASSIUM 3.6 MMOL/L (3.6-5.0); SODIUM 140 MMOL/L (135-145)
--- NOTE | 2016-02-21 08:27 | Pulmonary Progress Note ---
Subjective Subjective/Events-last exam Pt is complaining of only LI. He is on RA and has no SOB or productive cough. Exam Exam Vital Signs Date Time Temp Pulse Resp B/P Pulse Ox O2 Delivery O2 Flow Rate FiO2 02/21/16 04:00 97.6 68 28 148/93 96 Nasal Cannula 2.00 02/21/16 02:32 95 Nasal Cannula 2.00 02/21/16 01:00 66 02/21/16 00:43 99.0 61 142/84 96 Room Air 02/20/16 22:30 98.6 02/20/16 21:00 Room Air 02/20/16 20:31 95 Nasal Cannula 2.00 02/20/16 19:53 99.1 02/20/16 19:27 98.6 67 20 149/82 94 Room Air 02/20/16 19:00 70 02/20/16 15:35 99.2 67 11 175/86 93 Room Air 02/20/16 14:58 95 Nasal Cannula 2.00 02/20/16 13:00 80 02/20/16 12:00 98.6 63 26 126/78 95 Room Air 02/20/16 09:15 95 Nasal Cannula 2.00 02/20/16 09:00 Room Air 02/20/16 08:45 97.7 73 11 153/77 98 Room Air I & O 02/21/16 07:00 Intake Total 1300 ml Output Total 1575 ml Balance -275 ml General Appearance: No Apparent Distress (lying in bed) HEENT: PERRL/EOMI Normal ENT Inspection Pharynx Normal Neck: Full Range of Motion Normal Inspection Non Tender Supple Carotid Bruit Respiratory: Chest Non Tender No Accessory Muscle Use No Respiratory Distress Other (Loose sounding cough noted slightly diminished breath sounds in the right base with rales and rhonchi chest is clear elsewhere) Cardiovascular: Regular Rate, Rhythm Capillary Refill: Less Than 3 Seconds Gastrointestinal: non tender (no guarding or rebounding no palpable masses) soft Extremity: Normal Inspection Non Tender No Calf Tenderness No Pedal Edema Neurologic/Psychiatric: Alert Oriented x3 No Motor/Sensory Deficits Normal Mood/Affect Skin: Normal Color Warm/Dry Lymphatic: No Adenopathy Results Lab Laboratory Tests 02/20/16 03:56 02/21/16 04:22 Assessment/Plan Assessment/Plan S/P aspiration during CPR s/p syncope vasal vagal -- doubt true cardiac arrest -Agree with Zosyn for now -SVNs NSTEMI s/p cath -cardiology following -Cath today with general anesthesia -Pt is ok from pulmonary standpoint for procedure. Cough -SVNS -Tessalon pearls ARF improved with IVF Dysphagia -speech therapy consult for swallow eval Clinical Quality Measures DVT/VTE Risk/Contraindication: Risk Factor Score Per Nursin RFS Level Per Nursing on Admit: 4+=Very High CAIN JONES DO Feb 21, 2016 08:27
--- NOTE | 2016-02-21 08:48 | Diagnostic Imaging Report ---
INDICATION: Chest pain. COMPARISON: 02/20/2016. FINDINGS: The right medial basilar and perihilar infiltrate has improved. Air trapping and COPD are chronic. The heart size is stable. No adverse development. The more diffuse 5 lobe interstitial opacity is unchanged. IMPRESSION: Improvements in localized infiltration in the medial right lung base. Dictated by: Dictated on workstation # [id number]
[2016-02-21] MEDS: CLOPIDOGREL 75 MG (PLAVIX) TABLET PO SCH ×2 (08:49→09:00)
[2016-02-21] MEDS: meTOprolol TARTRATE 25 MG (LOPRESSOR) TABLET PO SCH ×2 (08:49→21:54)
[2016-02-21] MEDS: ASPIRIN 81 MG CHEW (CHILDREN'S ASA) PO SCH (08:49)
[2016-02-21] MEDS: lisINopril 5 MG (PRINIVIL) TABLET PO SCH (08:49)
[2016-02-21] MEDS: PANTOPRAZOLE 40 MG/10 ML (PROTONIX) VIAL IV SCH (09:24)
[2016-02-21] MEDS ORDERED: SODIUM CHLORIDE (ADD-VANTAGE) 100 ML IV ONE (09:33)
--- NOTE | 2016-02-21 10:50 | Speech Therapy Progress Note ---
Therapy Progress Note Dysphagia consult received and chart reviewed. The patient is currently NPO for an upcoming procedure (case discussed with RN). The speech pathologist will re- attempt evaluation as appropriate. Thank you! TONIO VALENTINO Feb 21, 2016 10:50
[2016-02-21] MEDS ORDERED: fentaNYL INJECTION 100 MCG/2 ML AMP ONE (11:14)
[2016-02-21] MEDS ORDERED: PHENYLEPHRINE 100 MCG/ML 10 ML (ANESTHESIA) SYR ONE (11:14)
[2016-02-21] MEDS ORDERED: LIDOCAINE PF 2% 10 ML (XYLOCAINE) AMP ONE (11:14)
[2016-02-21] MEDS ORDERED: ONDANSETRON 4 MG/2 ML (SDV) Z0FRAN ONE (11:14)
[2016-02-21] MEDS ORDERED: proPOfol 200 MG/20 ML (DIPRIVAN) VIAL IV ONE ×2 (11:14→12:16)
[2016-02-21] MEDS ORDERED: SEVOFLURANE (ULTANE) 15 ML INHAL SOLN ONE ×3 (11:14→17:55)
[2016-02-21] MEDS ORDERED: LIDOCAINE 1% INJ 20 ML (XYLOCAINE) VIAL ONE (11:15)
[2016-02-21] MEDS ORDERED: NS IV 1000 ML 0 ML ONE (11:16)
[2016-02-21] MEDS ORDERED: HEParin (CATH LAB) 2,000 ML IV ONE (11:16)
--- NOTE | 2016-02-21 11:26 | Progress Note-Hospitalist ---
Subjective HPI/CC On Admission patient denies chest discomfort or shortness of breath. He voices understanding of this upcoming cardiac catheterization and attempts at PCI what sounds like two-vessel reading Dr. Angeles's note. It is being done under general anesthetic as the patient delirium and had to abort the first attempt. He reports that his throat at been slightly sore but he does not believe he's been having any difficulty in swallowing. Prior to the syncopal episode he denied chest pressure or heaviness increased WILDER or fatigue although he had been relatively inactive.. Date Seen 02/21/16 Objective Exam Vital Signs Vital Sign - Last 12Hours 02/16/16 02/17/16 11:50 16:00 Temp 96.9 Pulse 55 Resp 22 B/P 190/77 Pulse Ox 96 O2 Delivery Room Air O2 Flow Rate 2.00 Capillary Refill : Less Than 3 Seconds General Appearance: No Apparent Distress Anxious Respiratory: Chest Non Tender Lungs Clear Normal Breath Sounds No Accessory Muscle Use No Respiratory Distress Other (few fine basilar rales clear with several inspirations.) Cardiovascular: Regular Rate, Rhythm No Edema No Gallop No JVD No Murmur Normal Peripheral Pulses Extremity: Normal Inspection Normal Range of Motion Non Tender No Pedal Edema Comments Laboratory Tests 02/20/16 03:56 02/21/16 04:22 Results/Procedures Lab Laboratory Tests 02/21/16 04:22 Assessment/Plan Assessment and Plan Assess & Plan/Chief Complaint 1. Vasovagal syncope most likely doubt cardiac arrest continue to monitor. 2. Aspiration pneumonitis probably affecting right lower lobe likely chemical in etiology clinically appears to be clear. 3. Non-ST segment elevation [place] scheduled for PCI and her general anesthetic due to delirium when it first attempt was made by Dr. Angeles. There are no medical contraindications to proceeding with planned PCI under general for his significant what sounds like two-vessel disease per Dr. Angeles. KASH MAGALLANES MD Feb 21, 2016 11:26
[2016-02-21] MEDS ORDERED: NITROGLYCERIN DRIP 25 MG/D5W 250 ML IV ONE (11:55)
[2016-02-21] MEDS ORDERED: VERAPAMIL 5 MG/2 ML (CALAN) VIAL IV ONE (11:55)
[2016-02-21] MEDS ORDERED: HEParin 1000 UNIT/ML (10ML VIAL) FOR BOLUS ONE (11:55)
[2016-02-21] MEDS ORDERED: EPTIFIBATIDE BOLUS 10 ML IV ONE ×2 (12:33→12:46)
--- NOTE | 2016-02-21 13:16 | Cardiology Progress Note ---
Cardiology SOAP Progress Note Subjective: no chest pain Objective: I&O/Vital Signs Vital Sign - Last 12Hours 02/21/16 02/21/16 02/21/16 02/21/16 09:00 09:24 10:54 13:32 Temp 98.2 98.9 Pulse 68 77 Resp 29 28 B/P 164/85 137/82 Pulse Ox 96 95 94 O2 Delivery Room Air Room Air Simple Mask O2 Flow Rate 10.00 02/21/16 02/21/16 02/21/16 02/21/16 13:42 13:50 14:00 14:10 Pulse 71 73 78 89 Resp 28 23 22 27 B/P 133/76 144/76 160/82 123/86 Pulse Ox 98 98 94 87 O2 Delivery Simple Mask Simple Mask Simple Mask Room Air O2 Flow Rate 10.00 6.00 6.00 02/21/16 02/21/16 02/21/16 02/21/16 14:15 14:20 14:30 15:00 Temp 98.4 Pulse 78 75 76 Resp 27 12 B/P 160/82 147/80 149/75 Pulse Ox 84 94 99 99 O2 Delivery Simple Mask Simple Mask Simple Mask Simple Mask O2 Flow Rate 15.00 10.00 10.00 10.00 02/21/16 02/21/16 02/21/16 02/21/16 15:30 15:46 16:00 17:00 Temp 98.2 Pulse 73 70 72 71 Resp 19 19 20 12 B/P 127/62 127/62 135/78 137/75 Pulse Ox 99 99 95 97 O2 Delivery Simple Mask Nasal Cannula Nasal Cannula O2 Flow Rate 6.00 3.00 3.00 02/21/16 02/21/16 02/21/16 19:00 20:11 20:29 Temp 98.7 Pulse 69 69 Resp 24 B/P 132/69 Pulse Ox 99 95 O2 Delivery Room Air Nasal Cannula O2 Flow Rate 3.00 Intake and Output 02/21/16 00:00 Intake Total 300 ml Output Total 1575 ml Balance -1275 ml Weight (Pounds): 158 Weight (Ounces): 0.0 Weight (Calculated Kilograms): [id number] Constitutional: No appears stated age, No AAO x 3, No apparent distress, No PERRL, No well-developed, No well-nourished, No other Respiratory: No accessory muscle use, No respiratory distress, No chest tender , No chest expansion is symmetric, No chest is bilaterally symmetric, No lungs clear to percussion, No lungs clear to auscultation, No crackles, No rhonchi, No rales, No stridor, No wheezing, No pleural rub, No other Cardiovascular: No regular rate-rhythm, No irregularly irregular, No extra beats, No parasternal heave is noted, No JVD, No edema, No bradycardia, No tachycardia, No point of maximal impulse, No cardiac thrills are palpable, No S1 and S2, No gallop/S3, No gallop/S4, No diastolic murmur, No systolic murmur, No friction rub, No click, No other Gastrointestional: No tender, No soft, No round, No distended, No pulsatile mass, No organomegaly, No guarding, No rebound, No tenderness, No hernia, No mass, No audible bowel sounds, No abnormal bowel sounds, No abdominal bruits, No spleenomegaly, No other Extremities: No normal range of motion, No non-tender, No normal inspection, No pedal edema, No calf tenderness, No normal capillary refill, No pelvis stable , No calf tenderness, No inflammation, No pedal edema, No slow capillary refill , No swelling, No other, No abrasion, No clubbing, No cyanosis, No ecchymosis, No laceration, No no lower extremity edema bilateral, No significant edema, No tenderness, No wound Neurologic/Psychiatric: No client executive II-XII nml as tested, No no motor/sensory deficits, No alert, No normal mood/affect, No oriented x 3, No abnormal cerebellar tests, No abnormal client executive II-XII, No abnormal gait, No aphasia, No EOM palsy, No facial droop, No motor weakness, No sensory deficit, No depressed affect, No disoriented x 3, No other, No grossly intact, No power is 5/5 both on sides Skin: No normal color, No warm/dry, No cyanosis, No cool, No diaphoresis, No damp, No ecchymosis, No jaundice, No mottled, No pallor, No rash, No tattoos/ piercings, No ulcerations, No rash on exposed areas, No ulcerations on exposed areas, No other Results/Procedures: Labs Laboratory Tests 02/21/16 04:22: Anion Gap 11, BUN/Creatinine Ratio 22, Basophils # (Auto) 0.0, Basophils (%) ( Auto) 0, Blood Urea Nitrogen 19H, Calcium Level 8.7, Carbon Dioxide Level 20L, Chloride Level 109H, Creatinine 0.87, Eosinophils # (Auto) 0.2, Eosinophils (%) (Auto) 4, Estimat Glomerular Filtration Rate > 60, Glucose Level 109H, Hematocrit 33L, Hemoglobin 11.5L, Lymphocytes # (Auto) 0.7L, Lymphocytes (%) ( Auto) 13, Mean Corpuscular Hemoglobin 31, Mean Corpuscular Hemoglobin Concent 35 , Mean Corpuscular Volume 88, Mean Platelet Volume 9.7, Monocytes # (Auto) 0.4, Monocytes (%) (Auto) 7, Neutrophils # (Auto) 3.9, Neutrophils (%) (Auto) 76H, Platelet Count 177, Potassium Level 3.6, Red Blood Count 3.73L, Red Cell Distribution Width 12.6, Sodium Level 140, White Blood Count 5.1 Microbiology 02/16/16 Blood Culture - Final, Complete No growth A/P: Assessment/Dx: pneumonia, aspiration, Non-ST elevation [place], Possible cardiac arrest. Plan: nstemi - PCI under general anesthesia. aspirin, plavix, statin. Ji MOSQUERA MD Feb 21, 2016 1:16 pm
--- NOTE | 2016-02-21 13:18 | Cardiac Procedure Note-CS/ASA ---
Pre-Procedure Note Pre-Op Procedure Note H&P Reviewed The H&P was reviewed, patient examined and no changes noted. Date H&P Reviewed: Feb 21, 2016 Time H&P Reviewed: 11:00 Conscious Sedation Pre-Proced Time Reviewed: 11:00 ASA Class: 3 Airway Mallampati Classification: (chinik appropriate class) I. II. III, IV Lungs Heart ASA score ASA 1: a normal healthy patient ASA 2: a patient with a mild systemic disease (mid diabetes, controlled hypertension, obesity ASA 3: a patient with a severe systemic disease that limits activity (angina , COPD, prior Myocardial infarction) ASA 4: a patient with an incapacitating disease that is a constant threat to life (CHF, renal failure) ASA 5: a moribund patient not expected to survive 24 hrs. (ruptured aneurysm) ASA 6: a declared brain patient whose organs are being harvested. For emergent operations, add the letter E after the classification Grade 1 Sedation Plan: Analgesia, Amnesia, Plan communicated to team members, Discussed options with patient/fam, Discussed risks with patient/fam Note The patient is an appropriate candidate to undergo the planned procedure, sedation, and anesthesia - procedure planned under general anesthesia ; please see anesthesia notes. The patient immediately re-assessed prior to indication. Ji MOSQUERA MD Feb 21, 2016 1:18 pm
--- NOTE | 2016-02-21 13:20 | Progress Note-Post Operative ---
Post-Operative Progess Note Pre-Operative Diagnosis non-ST elevation AK Post-Operative Diagnosis NSTEMI; s/p PCI with JACQUI to OM1 and mid LAD Post-Op Procedure Note Date of Procedure: Feb 21, 2016 Name of Procedure: right upper extremity angiography, two vessel PCI Procedure Note/Findings PCI with JACQUI to the Mid LAD and OM1. Anesthesia Type general Estimated blood loss (mL): 10 mL Packing: none Specimen(s) collected none Ji MOSQUERA MD Feb 21, 2016 1:20 pm
[2016-02-21] MEDS ORDERED: NS IV 1000 ML 1,000 ML ONE (13:36)
--- NOTE | 2016-02-21 14:38 | CARDIAC CATHETERIZATION ---
PROCEDURE PHYSICIAN: DIANNE MOSQUERA DATE OF PROCEDURE: 02/18/2016 INDICATION: Non-ST elevation [place]. PREOPERATIVE DIAGNOSIS: Non-ST elevation [place]. POSTOPERATIVE DIAGNOSES: Non-ST elevation [place], severe three-vessel disease. HISTORY: Mr. Haywood is an 86-year-old gentleman who presents with a vague history of possible cardiac arrest and brief CPR. Initially etiology of cardiac arrest is considered to be vasovagal. During the CPR, evidently he aspirated. Therefore he was being treated for aspiration pneumonia in the ICU. During his stay in the ICU he started to develop some chest discomfort. EKG showed ST depression in the anterior precordial leads. Troponins were positive; therefore our working diagnosis of non-ST elevation [place] was made. When I saw the patient he was still actively having chest pain. Therefore, urgent coronary angiography was planned. PROCEDURE PERFORMED: 1. Right upper extremity angiogram. 2. Coronary angiography. 3. Left heart catheterization. COMPLICATIONS: None. SPECIMEN: None. ESTIMATED BLOOD LOSS: 20 mL. FINAL RESULTS: Satisfactory. ANTICOAGULATION: Heparin CONTRAST: 83 mL of Omnipaque. FLUOROSCOPY TIME: 3.6 minutes. FLUOROSCOPY DOSE: 784 mGy. PROCEDURE DETAILS: The patient was brought to the Precinct Commanding Officer after informed consent was taken. All the risks and complications were explained in detail including bleeding, vascular damage, CVA, KY and even . Once the patient and family agreed with the risks and complications and consented to the procedure he was taken to the Precinct Commanding Officer. The patient was draped and prepped in the usual sterile fashion. We gained access in the right radial artery with a 6-Mongolian sheath. We had difficulty in advancing the guide catheter. Therefore right upper angiography was performed. LV gram and coronary angiography was performed with a Abilio catheter. FINDINGS: 1. Right upper extremity angiography: This was performed because there was difficulty advancing the regular J tipped 0.035 guidewire. 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 This vessel also had mild to moderate disease; however, there were no significant stenosis noted. The brachial artery is patent with no significant stenosis. At just below the elbow joint it divides into an ulnar artery and the radial artery is very thready and small caliber. 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 2. Left heart catheterization: Aortic pressure 136/66 mmHg. LV 154/13 mmHg. LVEDP is 34 mmHg. No significant gradient across the aortic valve. Left ventriculogram showed mildly reduced LV systolic function with an EF of 40 to 45% with distal anterior apical inferior apical hypokinesis. 3. 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 There are bridging collaterals noted. Distally it is diffusely diseased. 4. Left main is patent. 5. LAD is a transapical vessel with diffuse disease; however, there is a severe 95% stenosis in the midsegment. The LAD supplies collaterals to the left circumflex artery system as well as to the RCA. There are two diagonal arteries coming off the LAD, which are less than 1.5 mm diameter and diffusely diseased. 6. Left circumflex artery: The proximal left circumflex artery has severe 80% stenosis. It gives rise to 2 obtuse marginal arteries. There is total occlusion of the second obtuse marginal artery which fills distally. The first obtuse marginal artery also is diffusely diseased and has severe proximal stenosis. The AV groove vessel is also diffusely diseased. 7. At this point in time we pulled the Abilio catheter out and we were planning to intervene on the LAD; however, the patient became acutely confused and pulled the radial sheath out. We had to apply pressure. We spoke to the patient. He had no idea. He was not oriented in time, place and person. He refused to stay on the table and to lie still. We, therefore, felt that the safest thing was to stop the procedure at that point in time. We put a radial band around the radial artery and he was transferred to the ICU. I discussed at length with the family. CONCLUSION: 1. Severe three-vessel disease. 2. Mild cardiomyopathy. 3. Continue medical therapy of non-ST elevation [place]. 4. Will discuss with family and the patient. This could be benzodiazepine or/and narcotic associated confusion. If we do have to proceed with PCI it should be under general anesthesia. Job ID: [id number] Dictated Date: 02/21/2016 13:56:30 Trailhead Maintenance Worker Date: 02/21/2016 14:07:59 / manjula JENNINGS
[2016-02-21] MEDS: LORazepam INJ 2 MG/ML (ATIVAN) VIAL IVP PRN ×2 (15:00→17:38)
--- NOTE | 2016-02-21 15:04 | CARDIAC CATHETERIZATION ---
PROCEDURE PHYSICIAN: DIANNE MOSQUERA PCI REPORT STUDY DATE: 02/21/2016 INDICATION: Non-ST elevation UT. PREOPERATIVE DIAGNOSIS: Non-ST elevation [place], severe three-vessel disease. POSTOPERATIVE DIAGNOSIS: Non-ST elevation UT, status post PCI to the LAD and left circumflex artery. HISTORY: Mr. Haywood is an 86-year-old gentleman with non-ST elevation UT. We performed coronary angiography on 02/18/2016 and found severe three-vessel disease. However, the patient became acutely confused and pulled the sheath out. He would not lie still and he wanted to get off the table. Therefore the safest approach was to postpone the procedure. We put a radial band on the radial artery site and he was transferred to the ICU. I discussed at length with the patient and family afterwards. The most likely reason for confusion and was either benzodiazepine and/or narcotics. Therefore it was decided that if we have to proceed with PCI it would be under general anesthesia. We therefore involved anesthesia for evaluation. I also discussed with pulmonary team as far as the status of the pneumonia and whether intubation/ventilation is appropriate in this patient. Once pulmonary and anesthesia service on board, we took the patient back to the Oncology Consultant after informed consent. PROCEDURE PERFORMED: 1. Right upper extremity angiography. 2. PCI to the mid LAD with drug eluting stent. 3. PCI to the left circumflex artery with drug eluting stent. 4. PTCA to the proximal OM1. COMPLICATIONS: None. SPECIMENS: None. ESTIMATED BLOOD LOSS: 10 mL. FINAL RESULTS: Excellent. ANTICOAGULATION: Heparin, Integrilin. CONTRAST: 246 mL of Omnipaque. FLUOROSCOPY TIME: 13.5 minutes. FLUOROSCOPY DOSE: 3205 mGy. PCI DETAILS: The patient was brought to the Oncology Consultant after informed consent was taken. All the risks and complications were explained. The patient was draped and prepped in the usual sterile fashion. This procedure was done under general anesthesia. We gained access in the right radial artery and performed right upper extremity angiography since the patient is known to have an anomalous supply. We were in the radial artery and angiography revealed no significant disease in this anomalous radial artery. We then took an EBU 3.5 guide catheter, Whisper extra-support wire, heparin and Integrilin were given for anticoagulation. ACT was over 260 seconds. We crossed the lesion in the mid LAD with a Whisper wire. We took a 2.25 x 18 Xience Alpine stent and performed direct stenting to the LAD at 18 atmospheres for 34 seconds. We then took an NC Quantum balloon 2.5 x 15 and performed high-pressure balloon dilatation at 18 atmospheres for 60 seconds in the proximal midsegment of the stent. Post dilatation results were excellent with BRANDIE 3 flow with 5% residual stenosis. Please note initial stenosis was 95% and flow was BRANDIE 2 to BRANDIE 3. We then pulled the wire back and took another angiogram, which showed good flow with no vascular complication. We then took the same Whisper wire and crossed the lesion in the left circumflex artery. We took the same NC balloon 2.5 x 15 and performed balloon angioplasty of the first obtuse marginal artery at 12 atmospheres for 48 seconds. Post angioplasty results was satisfactory. We then took a Xience Alpine 2.5 x 18 stent and deployed it in the proximal left circumflex artery. It was deployed at 12 atmospheres for 60 seconds. We then took NC Quantum balloon back and did a postdilatation at 18 atmospheres for 60 seconds. Post dilatation results showed no significant residual stenosis and BRANDIE-3 flow. IMPRESSION/CONCLUSION: 1. Severe non-ST elevation [place], severe three-vessel disease. Successful PCI with drug eluting stent to the mid LAD and proximal left circumflex artery. Balloon angioplasty to the proximal segment of the first obtuse marginal artery. 2. Continue aspirin, Plavix, and transfer back to the ICU. 3. CBC, BNP, troponins in the morning. 4. Continue integrilin. Job ID: [id number] Dictated Date: 02/21/2016 14:06:07 Community Organization Director Date: 02/21/2016 14:39:33 / manjula JENNINGS
[2016-02-21] MEDS ORDERED: CLOPIDOGREL 300 MG (PLAVIX) TABLET PO NR ×2 (16:00→17:30)
[2016-02-21] MEDS: EPTIFIBATIDE DRIP 100 ML IV SCH (16:10)
[2016-02-21] MEDS: ATORVASTATIN 40 MG (LIPITOR) TABLET PO SCH (21:54)
[2016-02-22] VITALS (7 sets, daily range): BP systolic 98–144; BP diastolic 57–72
[2016-02-22] MEDS ORDERED: PIPERACILLIN/TAZO 4.5 GM VIAL (ZOSYN) IV ONE (01:10)
[2016-02-22] MEDS ORDERED: NORMAL SALINE (BAXTER MINI) 100 ML IV ONE (01:11)
[2016-02-22] MEDS: EPTIFIBATIDE DRIP 100 ML IV SCH ×2 (01:15→04:39)
[2016-02-22] MEDS: PIPERACILLIN SODIUM/TAZOBACTAM 4.5 GM in NORMAL SALINE (BAXTER MINI) 100 ML IV NR ×3 (01:19→17:49)
[2016-02-22] MEDS: ENOXAPARIN 80 MG/0.8 ML (LOVENOX) SYR SC SCH ×2 (01:26→14:18)
[2016-02-22] MEDS: RT-ALBUTEROL/IPRATROPIUM 3 ML (DUONEB) VIAL INH SCH ×4 (02:30→21:30)
[2016-02-22 03:54] LABS: BASOPHILS % (AUTO) 0 % (0-10); EOSINOPHILS # (AUTO) 0.2 10^3/uL (0.0-0.3); EOSINOPHILS % (AUTO) 4 % (0-10); LYMPHOCYTES # (AUTO) 0.6 X 10^3 (1.0-4.0); LYMPHOCYTES % (AUTO) 12 % (12-44); MEAN CORPUSCULAR HEMOGLOBIN 30 PG (25-34); MEAN CORPUSCULAR HGB CONC 34 G/DL (32-36); MEAN CORPUSCULAR VOLUME 89 FL (80-99); MEAN PLATELET VOLUME 9.5 FL (7.4-10.4); MONOCYTES # (AUTO) 0.6 X 10^3 (0.0-1.0); MONOCYTES % (AUTO) 11 % (0-12); NEUTROPHILS # (AUTO) 3.8 X 10^3 (1.8-7.8); NEUTROPHILS % (AUTO) 73 % (42-75); PLATELET COUNT 175 10^3/uL (130-400); RED BLOOD COUNT 3.62 10^6/uL (4.35-5.85); RED CELL DISTRIBUTION WIDTH 12.6 % (10.0-14.5); WHITE BLOOD COUNT 5.2 10^3/uL (4.3-11.0)
[2016-02-22 04:20] LABS: ANION GAP 9 MMOL/L (5-14); BLOOD UREA NITROGEN 16 MG/DL (7-18); BUN/CREATININE RATIO 18; CALCIUM 8.2 MG/DL (8.5-10.1); CARBON DIOXIDE 20 MMOL/L (21-32); CHLORIDE 110 MMOL/L (98-107); CREATININE SERUM 0.89 MG/DL (0.60-1.30); GFR ESTIMATED > 60; GLUCOSE 78 MG/DL (70-105); POTASSIUM 3.4 MMOL/L (3.6-5.0); SODIUM 139 MMOL/L (135-145)
[2016-02-22 04:35] LABS: TROPONIN I 3.15 NG/ML (<0.30)
[2016-02-22] MEDS: AA 4.25% W/LYTES IN D5W IV SOL 1,000 ML IV SCH ×3 (04:49→14:51)
--- NOTE | 2016-02-22 07:08 | Pulmonary Progress Note ---
Subjective Subjective/Events-last exam pt is very coarse sounding today. Exam Exam Vital Signs Date Time Temp Pulse Resp B/P Pulse Ox O2 Delivery O2 Flow Rate FiO2 02/22/16 04:03 98.2 63 22 118/61 96 Nasal Cannula 2.00 2.00 02/22/16 02:30 97 Nasal Cannula 3.00 02/22/16 01:26 98.2 02/22/16 01:12 60 02/22/16 00:00 98.2 58 24 98/57 96 Nasal Cannula 3.00 3.00 02/21/16 21:00 92 Nasal Cannula 3.00 02/21/16 20:29 95 Nasal Cannula 3.00 02/21/16 20:11 98.7 69 24 132/69 99 Nasal Cannula 3.00 02/21/16 19:00 69 02/21/16 17:00 71 12 137/75 97 Nasal Cannula 3.00 02/21/16 16:00 72 20 135/78 95 Nasal Cannula 3.00 02/21/16 15:46 98.2 70 19 127/62 99 02/21/16 15:30 73 19 127/62 99 Simple Mask 6.00 02/21/16 15:00 76 12 149/75 99 Simple Mask 10.00 02/21/16 14:30 98.4 75 27 147/80 99 Simple Mask 10.00 02/21/16 14:20 78 22 160/82 94 Simple Mask 10.00 02/21/16 14:15 84 Simple Mask 15.00 02/21/16 14:10 89 27 123/86 87 Room Air 02/21/16 14:00 78 22 160/82 94 Simple Mask 6.00 02/21/16 13:50 73 23 144/76 98 Simple Mask 6.00 02/21/16 13:42 71 28 133/76 98 Simple Mask 10.00 02/21/16 13:32 98.9 77 28 137/82 94 Simple Mask 10.00 02/21/16 10:54 98.2 68 29 164/85 95 Room Air 02/21/16 09:24 96 02/21/16 09:00 Room Air 02/21/16 08:44 72 20 178/96 95 Room Air I & O 02/22/16 07:00 Intake Total 0 ml Output Total 1600 ml Balance -1600 ml General Appearance: No Apparent Distress Anxious HEENT: PERRL/EOMI Normal ENT Inspection Pharynx Normal Neck: Full Range of Motion Normal Inspection Non Tender Supple Carotid Bruit Respiratory: Chest Non Tender Normal Breath Sounds No Accessory Muscle Use No Respiratory Distress Crackles Decreased Breath Sounds Rhonci Cardiovascular: Regular Rate, Rhythm No Edema No Gallop No JVD No Murmur Normal Peripheral Pulses Capillary Refill: Less Than 3 Seconds Gastrointestinal: non tender (no guarding or rebounding no palpable masses) soft Extremity: Normal Inspection Normal Range of Motion Non Tender No Pedal Edema Neurologic/Psychiatric: Alert Oriented x3 No Motor/Sensory Deficits Normal Mood/Affect Skin: Normal Color Warm/Dry Lymphatic: No Adenopathy Results Lab Laboratory Tests 02/21/16 04:22 02/22/16 03:15 Assessment/Plan Assessment/Plan S/P aspiration during CPR s/p syncope vasal vagal -- doubt true cardiac arrest -Agree with Zosyn for now -- d/c tomorrow -SVNs NSTEMI s/p cath with stent placement -cardiology following -Cath today with general anesthesia -Pt is ok from pulmonary standpoint for procedure. Cough -SVNS -Tessalon pearls ARF improved with IVF Dysuria - probably BPH -start flomax -s/p jones secondary to urinary retention Dysphagia -speech therapy consult for swallow eval Clinical Quality Measures DVT/VTE Risk/Contraindication: Risk Factor Score Per Nursin RFS Level Per Nursing on Admit: 4+=Very High CAIN JONES DO Feb 22, 2016 07:08
--- NOTE | 2016-02-22 08:26 | ST Dysphagia Evaluation ---
Speech Evaluation-General Medical Diagnosis s/p Cardiac Arrest Onset Date: Feb 20, 2016 Therapy Diagnosis Therapy Diagnosis: Mild to Moderate Oropharyngeal Dysphagia Precautions Precautions: Aspiration Precautions/Isolations: Fall Prevention, Standard Precautions Referral Referring Physician: Dr. Inez Patel Reason for Referral: Evaluation/Treatment Clinical Bedside Swallowing Evaluation Medical History Reviewed History: Yes Speech PLF/Current-Dysphagia Prior Level of Function The patient denied signs/symptoms of aspiration or difficulty swallowing a regular consistency diet prior to admission. Subjective The patient was recently admitted to [facility] following cardiac arrest and aspiration of vomit. The patient was laying in bed upon entrance. The patient was positioned upright in bed by the clinician prior to the assessment. The patient greeted the clinician appropriately and agreed to participate in the dysphagia evaluation on this date. The patient is currently receiving 2L supplemental oxygen via nasal cannula. CXR: 02/22/2016: Borderline heart size with central vascular congestion and diffuse interstitial edema. The findings are compatible with CHF. Cognitive Status Patient Orientation: Person Oral Motor Skills Dentition: Edentalous (The patient reported the use of dentures, however, dentures could not be located in the patient's room.) Ability to Follow Directions: Fair The patient is currently NPO pending results of bedside swallowing evaluation. Oral Expression Ability: Moderate Impairment Voice Voice Phonatory-Based Quality: Weak, Glottal Mitchell Voice Pitch: Normal Voice Loudness: Mildly Soft/Quiet Face Facial Symmetry: Asymmetrical (Slightl left facial droop present.) Oral-Facial Assessment Oral-Facial Dentition: Normal Labial Seal Description: Droops Left Smile: Droops Left Puff Cheeks: Reduced Strength (Bilaterally.) Lingual Protrusion: Normal Lingual ROM: Normal Lingual Strength: Normal Pharynx Velopharyngeal Move.: Normal Volitional Dry Swallow: Yes Dysphagia Evaluation Consistencies Presented: Thin Liquid, [place] Thick Liquid, Pureed Oral Phase: Reduced Oral Transit Increased oral transit time was noted with all consistencies tested. Pharyngeal Phase: Clears Throat, Reduced Laryngeal Elevation The patient demonstrated a throat clear following a cup drink of thin liquid ( water). Funct. Velo/Pharyngeal Symptom: Clears Throat, Cough After Swallow, Wet Voice - Thin Liquid: The patient demonstrated a delayed cough and throat clear, as well as, a wet vocal quality following cup sips of thin liquid. - [place]-Thick Liquid: No signs/symptoms of aspiration were demonstrated with multiple boluses (teaspoon, cup, straw) of nectar-thick liquid. The patient's vocal quality remained clear throughout trials. - Puree: No signs/symptoms of aspiration were demonstrated with multiple boluses of puree consistency. * Solid consistencies were deferred as patient stated he would be unable to masticate a saltine cracker in the absence of his dentures. The patient's SpO2% remained stable at 94% throughout bolus trials. Dietary Recommendations: Pureed Liquid Recommendations: [place] Consistancy Swallowing Precautions: Small Bites and Sips, Sitting 90 Degrees 30 Post Intake - Crush medication and place in puree consistency for administration. Dysphagia Evaluation Summary Mild to moderate oropharyngeal dysphagia characterized by decreased labial strength, reduced lingual coordination, and decreased laryngeal elevation. Speech Short Term Goals Short Term Goals Short Term Goals 1. Patient will tolerate trials of least restrictive consistency without signs/ symptoms of aspiration. 2. Patient will demonstrate swallowing strategies with 80% accuracy and mild clinician cueing. Time Frame-STG: One Week Speech Geospatial Information Scientist Goals Mcc Goals 1. The patient will tolerate a diet of the least restrictive consistency without signs/symptoms of aspiration. Time Frame: Two Weeks Speech-Plan Treatment Plan Speech Therapy Treatment Plan: Continue Plan of Care Treatment Duration: Mar 07, 2016 # of days/week 1 to 3 Visits Per Week: 1 to 3 Minutes/Day (M-F): 15 Rehab Potential: Fair Safety Risks/Education Teaching Recipient: Patient Teaching Methods: Discussion Response to Teaching: Verbalize Understanding, Reinforcement Needed Education Topics Provided: Results, recommendations, swallowing strategies Time Speech Therapy Time In: 08:00 Speech Therapy Time Out: 08:20 Total Billed Time: 20 Billed Treatment Time 1, TONIO FRANCISCO Feb 22, 2016 08:26
--- NOTE | 2016-02-22 08:52 | Diagnostic Imaging Report ---
INDICATION: Elevated troponin. Frontal chest obtained at 5:31 a.m. and compared with 02/21/16. FINDINGS: Heart is borderline in size. There is central vascular congestion with diffuse interstitial edema. There is no pneumothorax or pleural fluid or consolidation. IMPRESSION: Borderline heart size with central vascular congestion and diffuse interstitial edema. The findings are compatible with CHF. Dictated by: Dictated on workstation # [id number]
--- NOTE | 2016-02-22 10:07 | Anesthesia-General Post-Op ---
General Patient Condition Mental Status/LOC: Same as Preop Cardiovascular: Satisfactory Nausea/Vomiting: Absent Respiratory: Satisfactory Pain: Controlled Complications: Absent Post Op Complications Complications None Follow Up Care/Instructions Patient Instructions None needed. Anesthesia/Patient Condition Patient Condition Patient is doing well, no complaints, stable vital signs, no apparent adverse anesthesia problems. No complications reported per nursing. VALENCIA RAY CRNA Feb 22, 2016 10:07
[2016-02-22] MEDS: meTOprolol TARTRATE 25 MG (LOPRESSOR) TABLET PO SCH ×2 (10:08→21:29)
[2016-02-22] MEDS: lisINopril 5 MG (PRINIVIL) TABLET PO SCH (10:10)
[2016-02-22] MEDS: ASPIRIN 81 MG CHEW (CHILDREN'S ASA) PO SCH (10:10)
[2016-02-22] MEDS: CLOPIDOGREL 75 MG (PLAVIX) TABLET PO SCH (10:10)
[2016-02-22] MEDS: PANTOPRAZOLE 40 MG/10 ML (PROTONIX) VIAL IV SCH (10:21)
--- NOTE | 2016-02-22 11:17 | Progress Note-Hospitalist ---
Subjective HPI/CC On Admission Last night post catheter patient did have agitated behavior and confusion compatible with delirium. He required Ativan this morning is alert and oriented there is no evidence for inattention or agitation any reports no chest discomfort. He underwent a radial approach catheterization and received 2 drug- eluting stents one to the mid LAD in one to the circumflex with balloon angioplasty of the OM-1. Currently he is essentially on triple therapy with no evidence for significant bleeding. He had some pink tinge to his urine requiring a Ford catheter last night with 400 mL of postvoid residual but urine this morning is neymar no evidence for gross blood. He denies dysuria or pelvic pain. He also denies shortness of breath he has a loose sounding cough productive of a scant amount of milky sputum per nurse's report. It was a questionable amount of blood-tinged to some of his sputum Date Seen 02/22/16 Objective Exam Vital Signs Vital Sign - Last 12Hours 02/16/16 02/17/16 11:50 16:00 Temp 96.9 Pulse 55 Resp 22 B/P 190/77 Pulse Ox 96 O2 Delivery Room Air O2 Flow Rate 2.00 Capillary Refill : Less Than 3 Seconds General Appearance: No Apparent Distress Respiratory: Chest Non Tender No Accessory Muscle Use No Respiratory Distress Other (Few rales and rhonchi were noted in the right base but they clear with several inspiration otherwise the chest was clear) Cardiovascular: Regular Rate, Rhythm No Edema No Gallop No JVD No Murmur Normal Peripheral Pulses Extremity: No Pedal Edema Other (Right hand is warm with dressing over the radial artery there is no significant bruising noted no significant pain is reported resolution agent strength is good.) Comments Laboratory Tests 02/22/16 03:15: Anion Gap 9, BUN/Creatinine Ratio 18, Basophils # (Auto) 0.0, Basophils (%) ( Auto) 0, Blood Urea Nitrogen 16, Calcium Level 8.2L, Carbon Dioxide Level 20L, Chloride Level 110H, Creatinine 0.89, Eosinophils # (Auto) 0.2, Eosinophils (%) (Auto) 4, Estimat Glomerular Filtration Rate > 60, Glucose Level 78, Hematocrit 32L, Hemoglobin 10.9L, Lymphocytes # (Auto) 0.6L, Lymphocytes (%) (Auto) 12, Mean Corpuscular Hemoglobin 30, Mean Corpuscular Hemoglobin Concent 34, Mean Corpuscular Volume 89, Mean Platelet Volume 9.5, Monocytes # (Auto) 0.6, Monocytes (%) (Auto) 11, Neutrophils # (Auto) 3.8, Neutrophils (%) (Auto) 73, Platelet Count 175, Potassium Level 3.4L, Red Blood Count 3.62L, Red Cell Distribution Width 12.6, Sodium Level 139, Troponin I 3.15*H, White Blood Count 5.2 Microbiology 02/16/16 Blood Culture - Final, Complete No growth Results/Procedures Lab Laboratory Tests 02/22/16 03:15 Assessment/Plan Assessment and Plan Assess & Plan/Chief Complaint 1. Vasovagal syncope most likely doubt cardiac arrest continue to monitor. 2. Aspiration pneumonitis probably affecting right lower lobe likely chemical in etiology clinically appears to be clear. 3. 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 4. Anesthesia related delirium clearing. 5. Oropharyngeal dysphasia per speech therapy evaluation patient. Diet with thickened liquids and initiating this morning we'll continue to monitor. 6. Mild hypokalemia we'll replace. This is a complex medical management circumstance. KASH MAGALLANES MD Feb 22, 2016 11:17
[2016-02-22] MEDS ORDERED: KCL 8 MEQ (MICRO K) TABLET PO NR (11:53)
[2016-02-22] MEDS ORDERED: ALFUZOSIN HCL 10 MG TAB (UROXATRAL) PO SCH (18:00)
--- NOTE | 2016-02-22 20:51 | Cardiology Progress Note ---
Cardiology SOAP Progress Note Subjective: no chest pain. Objective: I&O/Vital Signs Vital Sign - Last 12Hours 02/22/16 02/22/16 02/22/16 02/22/16 09:39 09:45 12:00 13:00 Temp 99.5 Pulse 64 64 Resp 24 B/P 112/58 Pulse Ox 96 94 94 O2 Delivery Nasal Cannula Room Air Room Air O2 Flow Rate 2.00 02/22/16 02/22/16 02/22/16 16:00 16:32 20:05 Temp 100.1 99.9 Pulse 67 76 Resp 22 22 B/P 115/72 144/70 Pulse Ox 94 97 94 O2 Delivery Room Air Room Air Room Air Intake and Output 02/22/16 00:00 Intake Total 0 ml Balance 0 ml Weight (Pounds): 158 Weight (Ounces): 0.0 Weight (Calculated Kilograms): 71.543887 Constitutional: No appears stated age, No AAO x 3, No apparent distress, No PERRL, No well-developed, No well-nourished, No other Respiratory: No accessory muscle use, No respiratory distress, No chest tender , No chest expansion is symmetric, No chest is bilaterally symmetric, No lungs clear to percussion, No lungs clear to auscultation, No crackles, No rhonchi, No rales, No stridor, No wheezing, No pleural rub, No other Cardiovascular: No regular rate-rhythm, No irregularly irregular, No extra beats, No parasternal heave is noted, No JVD, No edema, No bradycardia, No tachycardia, No point of maximal impulse, No cardiac thrills are palpable, No S1 and S2, No gallop/S3, No gallop/S4, No diastolic murmur, No systolic murmur, No friction rub, No click, No other Gastrointestional: No tender, No soft, No round, No distended, No pulsatile mass, No organomegaly, No guarding, No rebound, No tenderness, No hernia, No mass, No audible bowel sounds, No abnormal bowel sounds, No abdominal bruits, No spleenomegaly, No other Extremities: No normal range of motion, No non-tender, No normal inspection, No pedal edema, No calf tenderness, No normal capillary refill, No pelvis stable , No calf tenderness, No inflammation, No pedal edema, No slow capillary refill , No swelling, No other, No abrasion, No clubbing, No cyanosis, No ecchymosis, No laceration, No no lower extremity edema bilateral, No significant edema, No tenderness, No wound Neurologic/Psychiatric: No retail and promotions coordinator II-XII nml as tested, No no motor/sensory deficits, No alert, No normal mood/affect, No oriented x 3, No abnormal cerebellar tests, No abnormal retail and promotions coordinator II-XII, No abnormal gait, No aphasia, No EOM palsy, No facial droop, No motor weakness, No sensory deficit, No depressed affect, No disoriented x 3, No other, No grossly intact, No power is 5/5 both on sides Skin: No normal color, No warm/dry, No cyanosis, No cool, No diaphoresis, No damp, No ecchymosis, No jaundice, No mottled, No pallor, No rash, No tattoos/ piercings, No ulcerations, No rash on exposed areas, No ulcerations on exposed areas, No other Results/Procedures: Labs Laboratory Tests 02/22/16 03:15: Anion Gap 9, BUN/Creatinine Ratio 18, Basophils # (Auto) 0.0, Basophils (%) ( Auto) 0, Blood Urea Nitrogen 16, Calcium Level 8.2L, Carbon Dioxide Level 20L, Chloride Level 110H, Creatinine 0.89, Eosinophils # (Auto) 0.2, Eosinophils (%) (Auto) 4, Estimat Glomerular Filtration Rate > 60, Glucose Level 78, Hematocrit 32L, Hemoglobin 10.9L, Lymphocytes # (Auto) 0.6L, Lymphocytes (%) (Auto) 12, Mean Corpuscular Hemoglobin 30, Mean Corpuscular Hemoglobin Concent 34, Mean Corpuscular Volume 89, Mean Platelet Volume 9.5, Monocytes # (Auto) 0.6, Monocytes (%) (Auto) 11, Neutrophils # (Auto) 3.8, Neutrophils (%) (Auto) 73, Platelet Count 175, Potassium Level 3.4L, Red Blood Count 3.62L, Red Cell Distribution Width 12.6, Sodium Level 139, Troponin I 3.15*H, White Blood Count 5.2 Microbiology 02/16/16 Blood Culture - Final, Complete No growth A/P: Assessment/Dx: pneumonia, aspiration, Non-ST elevation [place], Possible cardiac arrest. Plan: nstemi - PCI to LAD and LCX with JACQUI, PTCA to ostium OM1. aspirin, plavix, statin, BB, tamica inhibitor. defer discharge decision and lung infection to primary team/Dr Fiore. Ji MOSQUERA MD Feb 22, 2016 8:51 pm
[2016-02-22] MEDS: ATORVASTATIN 40 MG (LIPITOR) TABLET PO SCH (21:29)
[2016-02-23] VITALS: BP 125/65
[2016-02-23] MEDS: PIPERACILLIN SODIUM/TAZOBACTAM 4.5 GM in NORMAL SALINE (BAXTER MINI) 100 ML IV NR ×2 (01:00→08:46)
[2016-02-23] MEDS: ENOXAPARIN 80 MG/0.8 ML (LOVENOX) SYR SC SCH (02:00)
[2016-02-23] MEDS: RT-ALBUTEROL/IPRATROPIUM 3 ML (DUONEB) VIAL INH SCH ×2 (02:28→07:47)
[2016-02-23 04:00] VITALS: BP 152/77
[2016-02-23 04:31] LABS: BASOPHILS % (AUTO) 0 % (0-10); EOSINOPHILS # (AUTO) 0.2 10^3/uL (0.0-0.3); EOSINOPHILS % (AUTO) 4 % (0-10); LYMPHOCYTES # (AUTO) 0.8 X 10^3 (1.0-4.0); LYMPHOCYTES % (AUTO) 15 % (12-44); MEAN CORPUSCULAR HEMOGLOBIN 30 PG (25-34); MEAN CORPUSCULAR HGB CONC 34 G/DL (32-36); MEAN CORPUSCULAR VOLUME 88 FL (80-99); MEAN PLATELET VOLUME 9.6 FL (7.4-10.4); MONOCYTES # (AUTO) 0.6 X 10^3 (0.0-1.0); MONOCYTES % (AUTO) 11 % (0-12); NEUTROPHILS # (AUTO) 3.5 X 10^3 (1.8-7.8); NEUTROPHILS % (AUTO) 70 % (42-75); PLATELET COUNT 191 10^3/uL (130-400); RED BLOOD COUNT 3.49 10^6/uL (4.35-5.85); RED CELL DISTRIBUTION WIDTH 12.2 % (10.0-14.5); WHITE BLOOD COUNT 5.1 10^3/uL (4.3-11.0)
[2016-02-23 04:56] LABS: ANION GAP 8 MMOL/L (5-14); BLOOD UREA NITROGEN 16 MG/DL (7-18); BUN/CREATININE RATIO 17; CALCIUM 8.4 MG/DL (8.5-10.1); CARBON DIOXIDE 22 MMOL/L (21-32); CHLORIDE 109 MMOL/L (98-107); CREATININE SERUM 0.96 MG/DL (0.60-1.30); GFR ESTIMATED > 60; GLUCOSE 122 MG/DL (70-105); POTASSIUM 3.5 MMOL/L (3.6-5.0); SODIUM 139 MMOL/L (135-145)
[2016-02-23] MEDS: AA 4.25% W/LYTES IN D5W IV SOL 1,000 ML IV SCH (05:00)
[2016-02-23 05:39] LABS: TROPONIN I 2.02 NG/ML (<0.30)
[2016-02-23] MEDS ORDERED: KCL 8 MEQ (MICRO K) TABLET PO SCH (07:00)
[2016-02-23 08:00] VITALS: BP 146/68
[2016-02-23] MEDS: CLOPIDOGREL 75 MG (PLAVIX) TABLET PO SCH (08:45)
[2016-02-23] MEDS: ASPIRIN 81 MG CHEW (CHILDREN'S ASA) PO SCH (08:45)
[2016-02-23] MEDS: meTOprolol TARTRATE 25 MG (LOPRESSOR) TABLET PO SCH (08:46)
[2016-02-23] MEDS: PANTOPRAZOLE 40 MG/10 ML (PROTONIX) VIAL IV SCH (08:46)
[2016-02-23] MEDS: lisINopril 5 MG (PRINIVIL) TABLET PO SCH (08:46)
[2016-02-23] MEDS ORDERED: LISI-556 PO (08:57)
[2016-02-23] MEDS ORDERED: METO-333 PO (08:57)
[2016-02-23] MEDS ORDERED: ASPI-999 PO (08:57)
[2016-02-23] MEDS ORDERED: ATOR40TA PO (08:57)
[2016-02-23] MEDS ORDERED: ALFU10TA11 PO (08:57)
[2016-02-23] MEDS ORDERED: CLOP75TA28 PO (08:57)
--- NOTE | 2016-02-23 09:34 | Diagnostic Imaging Report ---
INDICATION: Elevated troponin.. TECHNIQUE: Single view chest at 4:59 AM. CORRELATION STUDY: 02/22/2016. FINDINGS: The cardiac enlargement overall appears stable. The severity of pulmonary vascular congestion with perihilar edema has improved and diminished considerably since the prior study. The vasculature does remain slightly prominent on followup. The severity of interstitial edema also appears improved but does persist. No infiltrate. IMPRESSION: Features of congestive heart overall appear significantly improved from one day earlier. Some congestive changes do remain. Dictated by: Dictated on workstation # [id number]
[2016-02-23 10:00] VITALS: BP 137/93
[2016-02-23 10:40] VITALS: BP 137/93
--- NOTE | 2016-02-23 13:56 | Cardiology Progress Note ---
Cardiology SOAP Progress Note Subjective: no chest pain Objective: I&O/Vital Signs Vital Sign - Last 12Hours 02/23/16 02/23/16 02/23/16 02/23/16 02:28 04:00 07:00 07:50 Temp 99.1 Pulse 62 70 Resp 20 B/P 152/77 Pulse Ox 96 95 94 O2 Delivery Room Air Room Air Room Air 02/23/16 02/23/16 02/23/16 02/23/16 08:00 08:50 10:00 10:40 Temp 99.3 Pulse 71 62 77 Resp 18 27 16 B/P 146/68 137/93 137/93 Pulse Ox 96 96 96 O2 Delivery Room Air Room Air Room Air Intake and Output 02/23/16 00:00 Intake Total 1650 ml Output Total 1550 ml Balance 100 ml Weight (Pounds): 158 Weight (Ounces): 0.0 Weight (Calculated Kilograms): 71.976229 Constitutional: No appears stated age, No AAO x 3, No apparent distress, No PERRL, No well-developed, No well-nourished, No other Respiratory: No accessory muscle use, No respiratory distress, No chest tender , No chest expansion is symmetric, No chest is bilaterally symmetric, No lungs clear to percussion, No lungs clear to auscultation, No crackles, No rhonchi, No rales, No stridor, No wheezing, No pleural rub, No other Cardiovascular: No regular rate-rhythm, No irregularly irregular, No extra beats, No parasternal heave is noted, No JVD, No edema, No bradycardia, No tachycardia, No point of maximal impulse, No cardiac thrills are palpable, No S1 and S2, No gallop/S3, No gallop/S4, No diastolic murmur, No systolic murmur, No friction rub, No click, No other Gastrointestional: No tender, No soft, No round, No distended, No pulsatile mass, No organomegaly, No guarding, No rebound, No tenderness, No hernia, No mass, No audible bowel sounds, No abnormal bowel sounds, No abdominal bruits, No spleenomegaly, No other Extremities: No normal range of motion, No non-tender, No normal inspection, No pedal edema, No calf tenderness, No normal capillary refill, No pelvis stable , No calf tenderness, No inflammation, No pedal edema, No slow capillary refill , No swelling, No other, No abrasion, No clubbing, No cyanosis, No ecchymosis, No laceration, No no lower extremity edema bilateral, No significant edema, No tenderness, No wound Neurologic/Psychiatric: No geological manager II-XII nml as tested, No no motor/sensory deficits, No alert, No normal mood/affect, No oriented x 3, No abnormal cerebellar tests, No abnormal geological manager II-XII, No abnormal gait, No aphasia, No EOM palsy, No facial droop, No motor weakness, No sensory deficit, No depressed affect, No disoriented x 3, No other, No grossly intact, No power is 5/5 both on sides Skin: No normal color, No warm/dry, No cyanosis, No cool, No diaphoresis, No damp, No ecchymosis, No jaundice, No mottled, No pallor, No rash, No tattoos/ piercings, No ulcerations, No rash on exposed areas, No ulcerations on exposed areas, No other Results/Procedures: Labs Laboratory Tests 02/23/16 03:28: Anion Gap 8, BUN/Creatinine Ratio 17, Basophils # (Auto) 0.0, Basophils (%) ( Auto) 0, Blood Urea Nitrogen 16, Calcium Level 8.4L, Carbon Dioxide Level 22, Chloride Level 109H, Creatinine 0.96, Eosinophils # (Auto) 0.2, Eosinophils (%) (Auto) 4, Estimat Glomerular Filtration Rate > 60, Glucose Level 122H, Hematocrit 31L, Hemoglobin 10.6L, Lymphocytes # (Auto) 0.8L, Lymphocytes (%) ( Auto) 15, Mean Corpuscular Hemoglobin 30, Mean Corpuscular Hemoglobin Concent 34 , Mean Corpuscular Volume 88, Mean Platelet Volume 9.6, Monocytes # (Auto) 0.6, Monocytes (%) (Auto) 11, Neutrophils # (Auto) 3.5, Neutrophils (%) (Auto) 70, Platelet Count 191, Potassium Level 3.5L, Red Blood Count 3.49L, Red Cell Distribution Width 12.2, Sodium Level 139, Troponin I 2.02*H, White Blood Count 5.1 Microbiology 02/16/16 Blood Culture - Final, Complete No growth A/P: Assessment/Dx: pneumonia, aspiration, Non-ST elevation [place], Possible cardiac arrest. Plan: nstemi - PCI to LAD and LCX with JACQUI, PTCA to ostium OM1. aspirin, plavix, statin, BB, tamica inhibitor. defer discharge decision and lung infection to primary team/Dr Fiore. ok to discharge per cardiology. Thank you for your consultation. Please call me if you have any questions. Meredith Angeles MD, FACP, FACC, FSCAI, FHRS, CCDS Interventional Cardiology Cardiac Electrophysiology Vascular Medicine and Endovascular Interventions Ji ANGELES MD Feb 23, 2016 1:56 pm
--- NOTE | 2016-02-25 11:28 | ECHOCARDIOGRAPHY REPORT ---
PROCEDURE PHYSICIAN: DIANNE MOSQUERA DATE OF PROCEDURE: 02/21/2016 TWO DIMENSIONAL ECHOCARDIOGRAM REPORT PRIMARY PHYSICIAN: Dr. Jignesh Argueta OTHER PHYSICIAN: REFERRING PHYSICIAN: ORDERING PHYSICIAN: ATTENDING PHYSICIAN: Dr. Roderick Lindo FAMILY PHYSICIAN: READING PHYSICIAN: INDICATION FOR THE PROCEDURE: Non-STEMI MEASUREMENTS DERIVED VALUES LV DIAMETER (LAX) NORMALS NORMALS Diastolic (3.6-5.2) Eject. Fract. (60%+/-6%) Systolic (2.3-3.9) Diastolic Vol. % Shortening (0.22-0.42) Systolic Vol. Aortic Root IVS THICKNESS Diastolic (0.6-1.1) LVPW THICKNESS Diastolic (0.6-1.1) LA DIAMETER Systolic (2.1-3.7) FINDINGS: 1. Sinus rhythm. 2. Left atrial size is normal. 3. Aortic root is normal. 4. LV size and function is normal. LV EF is 70%. Mild concentric LVH is present. Diastolic intraventricular septal diameter is 1.4 cm. 5. Mild diastolic dysfunction is present. 6. There are no significant wall motion abnormalities. 7. RV size and function is normal. 8. IVC is 1.3 cm with normal respiratory variation. 9. There is no pericardial effusion. VALVULAR STRUCTURE OF THE HEART: The aortic valve has sclerosis with mild to moderate aortic insufficiency. The mitral valve is thickened with mild to moderate mitral regurgitation. There is mild tricuspid regurgitation with RVSP of 70 mmHg. Pulmonic valve is within normal limits. CONCLUSION: 1. LV and RV size and function is normal. LV EF is 70%. 2. Mild concentric LVH is present. Mild to moderate aortic insufficiency and mild to moderate mitral regurgitation is present. 3. Mild diastolic dysfunction is present. 4. Moderate to severe pulmonary hypertension is present with RVSP of 70 mmHg. Job ID: [id number] Dictated Date: 02/24/2016 20:54:34 Furniture Reproducer Date: 02/25/2016 11:23:05 / manjula
--- NOTE | 2016-03-14 11:53 | Discharge Summary-Hospitalist ---
Diagnosis/Chief Complaint Date of Admission Feb 17, 2016 at 09:38 Date of Discharge Feb 23, 2016 at 10:40 Discharge Date: Feb 23, 2016 Admission Diagnosis Assessment: S/P aspiration during CPR after unresponsive episode likely due to vagal episode causing aspiration pneumonitis with current SBO with NGT in place with fever Hypokalemia ARF improved with IVF Dry eye syndrome Discharge Diagnosis 1. Vasovagal syncope most likely doubt cardiac arrest continue to monitor. 2. Aspiration pneumonitis probably affecting right lower lobe likely chemical in etiology clinically appears to be clear. 3. 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 4. Anesthesia related delirium clearing. 5. Oropharyngeal dysphasia per speech therapy evaluation patient. Diet with thickened liquids and initiating this morning we'll continue to monitor. 6. Mild hypokalemia we'll replace. This is a complex medical management circumstance. Reason Hospital Visit/Course Last night post catheter patient did have agitated behavior and confusion compatible with delirium. He required Ativan this morning is alert and oriented there is no evidence for inattention or agitation any reports no chest discomfort. He underwent a radial approach catheterization and received 2 drug- eluting stents one to the mid LAD in one to the circumflex with balloon angioplasty of the OM-1. Currently he is essentially on triple therapy with no evidence for significant bleeding. He had some pink tinge to his urine requiring a Ford catheter last night with 400 mL of postvoid residual but urine this morning is neymar no evidence for gross blood. He denies dysuria or pelvic pain. He also denies shortness of breath he has a loose sounding cough productive of a scant amount of milky sputum per nurse's report. It was a questionable amount of blood-tinged to some of his sputum.patient had no further bleeding reported no chest discomfort with clearing of his sensorium back to baseline mental status. He was discharged on beta jaxson therapy aspirin and Plavix and statin therapy with follow-up appointment with me in several weeks as well as Dr. Angeles. Vital signs are stable times discharge and is not having any difficulty with urination. Discharge Summary Discharge Physical Examination Allergies: Coded Allergies: No Known Drug Allergies (Verified , 01/05/15) Uncoded Allergies: Nka (Allergy, Mild, 09/10/07) Hospital Course Labs (last 24 hrs) Microbiology 02/16/16 Blood Culture - Final, Complete No growth Discharge Home Medications: Active Scripts Active Metoprolol Tartrate 25 Mg Tablet 25 Mg PO BID Aspirin 81 Mg Tab.chew 81 Mg PO DAILY Lipitor (Atorvastatin Calcium) 40 Mg Tablet 40 Mg PO HS Clopidogrel (Clopidogrel Bisulfate) 75 Mg Tablet 75 Mg PO DAILY Alfuzosin HCl ER (Alfuzosin HCl) 10 Mg Tab.er.24h 10 Mg PO DAILY@1800 Lisinopril 5 Mg Tablet 5 Mg PO DAILY Reported Artificial Tears Drops (Polyvinyl Alcohol/Povidone) 15 Ml Drops 1 Drop OU DAILY PRN PRN Instructions to patient/family Please see electonic discharge instructions given to patient. Clinical Quality Measures DVT/VTE Risk/Contraindication: Risk Factor Score Per Nursin RFS Level Per Nursing on Admit: 4+=Very High Copy Copies To 1: KASH MAGALLANES MD, MARK D MD Mar 14, 2016 11:53
== END 2016-02-23 10:40 | disposition home or self-care (01) | DRG 981 ==
LOC: EDUNIT# 11:39 → ER 11:41 → 4TH 13:35 → UNDOADMOB 13:35 → 4TH 14:00 → OBSVTOIN 02-17 09:38 → INTOOBSV 02-17 09:40 → 4TH 02-18 14:40 → ICU 02-18 14:40
PROVIDERS: ADMIT Internal Medicine; ATTEND Internal Medicine
PROC: B2151ZZ Fluoroscopy of Left Heart using Low Osmolar Contrast (ICD-10-PCS; 2016-02-18)
PROC: B2111ZZ Fluoroscopy of Multiple Coronary Arteries using Low Osmolar Contrast (ICD-10-PCS; 2016-02-18)
PROC: B31H1ZZ Fluoroscopy of Right Upper Extremity Arteries using Low Osmolar Contrast (ICD-10-PCS; 2016-02-18)
PROC: 027135Z Dilation of Coronary Artery, Two Arteries with Two Drug-eluting Intraluminal Devices, Percutaneous Approach (ICD-10-PCS; principal; 2016-02-21)
PROC: 02703ZZ Dilation of Coronary Artery, One Artery, Percutaneous Approach (ICD-10-PCS; 2016-02-21)
PROC: B31H1ZZ Fluoroscopy of Right Upper Extremity Arteries using Low Osmolar Contrast (ICD-10-PCS; 2016-02-21)
DX: J69.0 Pneumonitis due to inhalation of food and vomit (principal); I21.4 Non-ST elevation (NSTEMI) myocardial infarction; I25.10 Atherosclerotic heart disease of native coronary artery without angina pectoris; N17.9 Acute kidney failure, unspecified; I42.9 Cardiomyopathy, unspecified; K56.60 Unspecified intestinal obstruction; R11.13 Vomiting of fecal matter; I25.2 Old myocardial infarction; E87.6 Hypokalemia; H04.129 Dry eye syndrome of unspecified lacrimal gland; N40.1 Benign prostatic hyperplasia with lower urinary tract symptoms; R33.9 Retention of urine, unspecified; R13.12 Dysphagia, oropharyngeal phase; R41.0 Disorientation, unspecified; T42.4X5A Adverse effect of benzodiazepines, initial encounter; T40.605A Adverse effect of unspecified narcotics, initial encounter; Z87.891 Personal history of nicotine dependence
CPT/HCPCS: 36415; 71010; 71020; 74020; 74176; 75710; 80048; 80053; 83605; 83735; 84100; 84484; 85025; 85347; 86141; 87040; 92920; 93005; 93041; 93306; 93458; 94010; 94640; 94664; 94760; 96374; G0378

== ENCOUNTER 2019-05-01 18:34 | Emergency (ER) | payer MEDICARE, OTHER ==
[~2019-05-01] VITALS: Ht 167.7 cm; Wt 81.6 kg
[~2019-05-01 18:34] MED LIST changes: +ALFU10TA12 PO; +ASPI-808 PO; +ASPI-983 PO; +ASPI-999 PO; +ATOR40TA PO; +CALC300T4 PO; +CEPH-507 PO; +CLOP75TA28 PO; +CLOP75TA69 PO; +LISI-556 PO; -MAGN296S50 PO; +MAGN296S71 PO; +METO-333 PO; +POLY15DR14 OU; -TAMS0.4C98 PO; +TMSL.4C PO
[2019-05-01 20:08] LABS: BILIRUBIN,URINE NEGATIVE (NEGATIVE); CLARITY,URINE CLEAR; COLOR,URINE YELLOW; GLUCOSE, URINE (UA) NEGATIVE (NEGATIVE); KETONES,URINE NEGATIVE (NEGATIVE); LEUKOCYTE ESTERASE ,URINE TRACE (NEGATIVE); NITRITE,URINE NEGATIVE (NEGATIVE); PROTEIN,URINE NEGATIVE (NEGATIVE)
[2019-05-01] MEDS ORDERED: LIDOCAINE UROJET 2% GEL 10 ML PKG TOP ONE (20:15)
[2019-05-01 20:24] LABS: AMPHETAMINE SCREEN, URINE NEGATIVE (NEGATIVE); BARBITURATE SCREEN URINE NEGATIVE (NEGATIVE); BENZODIAZEPINES SCREEN URINE NEGATIVE (NEGATIVE); CANNABINOID SCREEN, URINE NEGATIVE (NEGATIVE); COCAINE SCREEN URINE NEGATIVE (NEGATIVE); METHADONE STAT NEGATIVE (NEGATIVE); METHAMPHETAMINE SCREEN URINE S NEGATIVE (NEGATIVE); OPIATE SCREEN URINE NEGATIVE (NEGATIVE); OXYCODONE STAT NEGATIVE (NEGATIVE); PROPOXYPHENE STAT NEGATIVE (NEGATIVE); TRICYCLIC ANTIDEPRESSANTS SCRE NEGATIVE (NEGATIVE)
[2019-05-01 20:43] LABS: BASOPHILS % (AUTO) 0 % (0-10); EOSINOPHILS # (AUTO) 0.1 10^3/uL (0.0-0.3); EOSINOPHILS % (AUTO) 1 % (0-10); HEMATOCRIT 34 % (40-54); HEMOGLOBIN 11.4 G/DL (13.3-17.7); LYMPHOCYTES # (AUTO) 1.1 X 10^3 (1.0-4.0); LYMPHOCYTES % (AUTO) 14 % (12-44); MEAN CORPUSCULAR HEMOGLOBIN 31 PG (25-34); MEAN CORPUSCULAR HGB CONC 34 G/DL (32-36); MEAN CORPUSCULAR VOLUME 91 FL (80-99); MONOCYTES # (AUTO) 0.9 X 10^3 (0.0-1.0); MONOCYTES % (AUTO) 11 % (0-12); NEUTROPHILS # (AUTO) 5.7 X 10^3 (1.8-7.8); NEUTROPHILS % (AUTO) 74 % (42-75); PLATELET COUNT 263 10^3/uL (130-400); WHITE BLOOD COUNT 7.8 10^3/uL (4.3-11.0)
[2019-05-01 20:47] LABS: BACTERIA,URINE TRACE /HPF
--- NOTE | 2019-05-01 21:05 | ED General ---
General Chief Complaint: General Problems/Pain Stated Complaint: CONFUSION Nursing Triage Note: [facility] c/o recent skin changes et penile discharge. Staff report upon initial admission assessment to facility areas of concern were noted. Pt alert to self Nursing Sepsis Screen: No Definite Risk Source of Information: Old Records (ALL PMH IS FROM OLD CHART AND FROM [facility]) Exam Limitations: Other (PT IS NOT TALKING OR FOLLOWING COMMANDS, PIPE TESTING TECHNICIAN THAT BROUGHT PT DOES NOT KNOW ANYTHING ABOUT PT. ) History of Present Illness Date Seen by Provider: May 01, 2019 Time Seen by Provider: 19:30 Initial Comments PT ARRIVES VIA POV FROM [facility], WITH PIPE TESTING TECHNICIAN PT WAS JUST ADMITTED THERE TODAY--PIPE TESTING TECHNICIAN AND NURSING STAFF DO NOT KNOW ANYTHING ABOUT THE PT--"JUST WANTED HIM CHECKED OUT" THIS WAS APPARENTLY AN EMERGENCY ADMIT DUE TO PT'S PASSING AWAY A COUPLE OF DAYS AGO. PT WITH DEMENTIA AND IS NOT ABLE TO GIVE ANY RELEVANT INFORMATION [facility]ARE [facility] STAFF CONCERNED ABOUT: -ABRASION TO LEFT SHOULDER -BREAKDOWN OF SKIN ON LEFT ANKLE -PENIS IS "RAW" PT HAS BEEN INCONTINENT OF URINE AND HIS SOCKS WERE SOAKED WITH URINE. PER [facility], PT IS INCONTINENT OF BOWEL AND BLADDER. NO OTHER INFORMATION IS OBTAINABLE PCP: DR. MAGALLANES Allergies and Home Medications Allergies Coded Allergies: No Known Drug Allergies (Verified , 01/05/15) Uncoded Allergies: Nka (Allergy, Mild, 09/10/07) Home Medications Alfuzosin HCl 10 Mg Tab.er.24h, 10 MG PO 1800, (Reported) Aspirin 81 Mg Tablet.dr, 81 MG PO DAILY, (Reported) Atorvastatin Calcium 40 Mg Tablet, 40 MG PO HS, (Reported) Calcium Carbonate 300 Mg Tab.chew, 300 MG PO TID PRN for INDIGESTION, (Reported) Cephalexin 500 Mg Capsule, 500 MG PO BID Prescribed by: Ji MOSQUERA on 03/13/17 0932 Lisinopril 5 Mg Tablet, 5 MG PO DAILY, (Reported) Oseltamivir Phosphate 75 Mg Cap, 75 MG PO BID Prescribed by: NAYLA ADAMS on 05/01/19 2228 Polyvinyl Alcohol/Povidone 15 Ml Drops, 1 DROP OU TID PRN for DRY EYES, (Reported) Patient Home Medication List Home Medication List Reviewed: Yes Review of Systems Review of Systems Constitutional: other (PT UNABLE TO GIVE ANY RELEVANT INFORMATION) Genitourinary: see HPI Skin: see HPI Past Uglytaf-Dryfct-Dmmlil Hx Past Med/Social Hx: Reviewed and Corrections made Patient Social History Alcohol Use: Denies Use Recreational Drug Use: No Smoking Status: Former Smoker Type Used: Cigarettes Former Smoker, Quit: Jan 19, 1975 Recent Foreign Travel: No Contact w/Someone Who Travel: No Recent Infectious Disease Expo: No Recent Hopitalizations: No Immunizations Up To Date Tetanus Booster (TDap): Unknown Date of Pneumonia Vaccine: Feb 09, 2016 Date of Influenza Vaccine: Nov 19, 2016 Seasonal Allergies Seasonal Allergies: No Past Medical History Surgeries: Yes (APPY 1949, CATARACTS REMOVED;CARDIAC CATHS-MULTIPLE STENTS ;PACEMAKER) Appendectomy, Cardiac, Coronary Stent, Eye Surgery, Pacemaker Respiratory: Yes (ASPIRATION PNEUMONITIS 2015--SEE BELOW FOR DETAILS) Currently Using CPAP: No Currently Using BIPAP: No Cardiac: Yes ([place] 1974;CARDIAC CATHS-STENTS 2015;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) Coronary Artery Disease, Heart Attack, High Cholesterol, Hypertension, Irregular Heartbeat, Syncope Neurological: Yes (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) Dementia, Stroke Reproductive Disorders: No Sexually Transmitted Disease: No HIV/AIDS: No Genitourinary: Yes Benign Prostatic Hyperpl, Prostate Problems, UTI-Chronic Gastrointestinal: No Musculoskeletal: Yes (CHRONIC PAIN, GENERALIZED WEAKNESS) Arthritis Endocrine: No HEENT: Yes Cataract Loss of Vision: Bilateral Hearing Impairment: Hard of Hearing Cancer: No Psychosocial: No Integumentary: No Blood Disorders: No Adverse Reaction/Blood Tranf: No Family Medical History CANCER 19 FATHER G8 BROTHER G8 BROTHER G8 SISTER FH: cancer No Pertinent Family Hx PSH: -APPENDECTOMY 1949 -CATARACTS REMOVED -CARDIAC CATHS WITH MULTIPLE STENTS-- 2015; [place] 1974; 2015-- CARDIAC ARREST VS MORE LIKELY A SYNCOPAL EPISODE DUE TO VOMITING--FAMILY PERFORMED CPR, WITH MULTIPLE EPISODES OF EMESIS; HAD ASPIRATION PNEUMONITIS--DX WITH NSTEMI AND HAD STENTS X 2--LAD AND LEFT CIRCUMFLEX AND ANGIOPLASTY TO OM1 -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 AGUILAR Physical Exam Vital Signs Vital Signs - First Documented 3/12/20 19:15 Temp 36.4 Pulse 66 Resp 20 B/P (MAP) 146/70 (95) Pulse Ox 100 O2 Delivery Room Air Capillary Refill : Less Than 3 Seconds Height, Weight, BMI Height: 5'6.00" Weight: 153lbs. 0.0oz. [id number]; 29.00 BMI Method:Stated General Appearance: No Apparent Distress, WD/WN, Other (AWAKE, FLAT AFFECT. NOT REALLY TALKING OR FOLLOWING COMMANDS. APPEARS TO BE SOMEWHAT LETHARGIC. DOES NOT APPEAR TO BE IN ANY ACUTE DISTRESS. NO COUGH NOTED. ) HEENT: PERRL/EOMI Neck: Normal Inspection Respiratory: Normal Breath Sounds, No Accessory Muscle Use, No Respiratory Distress Cardiovascular: Regular Rate, Rhythm, No Edema, No JVD, No Murmur, Normal Peripheral Pulses Gastrointestinal: Non Tender, Soft Genital/Rectal: Other (HEAD OF PENIS IS SWOLLEN AND ERYTHEMATOUS. URINARY INCONTINENCE. NO ACTUAL SKIN BREAKDOWN. ) Back: No CVA Tenderness, No Vertebral Tenderness Extremity: Normal Capillary Refill, Non Tender, No Calf Tenderness, No Pedal Edema Neurologic/Psychiatric: Alert, Other (ORIENTED TO PERSON. NOT REALLY TALKING OR FOLLOWING COMMANDS ON ARRIVAL ; GROSS MOTOR AND SENSORY IS INTACT--MOVES ALL EXT REMITIES. ) Skin: Normal Color, Warm/Dry, Other (ERYTHEMA AROUND LEFT ANKLE AREA--APPEARS TO BE DUE TO IRRITATION FROM URINE-SOAKED SOCKS, BASED ON DISTRIBUTION. NO ACTUAL SKIN BREAKDOWN. ) Focused Exam Lactate Level 05/01/19 20:36: Lactic Acid Level 1.87 Lactic Acid Level Progress/Results/Core Measures Suspected Sepsis Recent Fever Within 48 Hours: No Infection Criteria Present: Suspected New Infection New/Unexplained Altered Menta: No Sepsis Screen: No Definite Risk SIRS Temperature: Pulse: 66 Respiratory Rate: 20 Laboratory Tests 05/01/19 20:36: White Blood Count 7.8 Blood Pressure 146 /70 Mean: 95 05/01/19 20:36: Lactic Acid Level 1.87 Laboratory Tests 05/01/19 20:36: Creatinine 0.91, INR Comment 1.2, Platelet Count 263, Total Bilirubin 0.4 Results/Orders Lab Results Laboratory Tests Test 05/01/19 19:58 05/01/19 20:36 05/01/19 20:46 Range/Units Urine Color YELLOW Urine Clarity CLEAR Urine pH 6.0 5-9 Urine Specific Cunningham 1.020 1.016-1.022 Urine Protein NEGATIVE NEGATIVE Urine Glucose (UA) NEGATIVE NEGATIVE Urine Ketones NEGATIVE NEGATIVE Urine Nitrite NEGATIVE NEGATIVE Urine Bilirubin NEGATIVE NEGATIVE Urine Urobilinogen 0.2 < = 1.0 MG/DL Urine Leukocyte Esterase TRACE H NEGATIVE Urine RBC (Auto) NEGATIVE NEGATIVE Urine RBC NONE /HPF Urine WBC NONE /HPF Urine Crystals NONE /LPF Urine Bacteria TRACE /HPF Urine Casts NONE /LPF Urine Mucus NEGATIVE /LPF Urine Culture Indicated NO Urine Opiates Screen NEGATIVE NEGATIVE Urine Oxycodone Screen NEGATIVE NEGATIVE Urine Methadone Screen NEGATIVE NEGATIVE Urine Propoxyphene Screen NEGATIVE NEGATIVE Urine Barbiturates Screen NEGATIVE NEGATIVE Ur Tricyclic Antidepressants Screen NEGATIVE NEGATIVE Urine Phencyclidine Screen NEGATIVE NEGATIVE Urine Amphetamines Screen NEGATIVE NEGATIVE Urine Methamphetamines Screen NEGATIVE NEGATIVE Urine Benzodiazepines Screen NEGATIVE NEGATIVE Urine Cocaine Screen NEGATIVE NEGATIVE Urine Cannabinoids Screen NEGATIVE NEGATIVE White Blood Count 7.8 4.3-11.0 10^3/uL Red Blood Count 3.71 L 4.35-5.85 10^6/uL Hemoglobin 11.4 L 13.3-17.7 G/DL Hematocrit 34 L 40-54 % Mean Corpuscular Volume 91 80-99 FL Mean Corpuscular Hemoglobin 31 25-34 PG Mean Corpuscular Hemoglobin Concent 34 32-36 G/DL Red Cell Distribution Width 14.0 10.0-14.5 % Platelet Count 263 130-400 10^3/uL Mean Platelet Volume 9.0 7.4-10.4 FL Neutrophils (%) (Auto) 74 42-75 % Lymphocytes (%) (Auto) 14 12-44 % Monocytes (%) (Auto) 11 0-12 % Eosinophils (%) (Auto) 1 0-10 % Basophils (%) (Auto) 0 0-10 % Neutrophils # (Auto) 5.7 1.8-7.8 X 10^3 Lymphocytes # (Auto) 1.1 1.0-4.0 X 10^3 Monocytes # (Auto) 0.9 0.0-1.0 X 10^3 Eosinophils # (Auto) 0.1 0.0-0.3 10^3/uL Basophils # (Auto) 0.0 0.0-0.1 10^3/uL Prothrombin Time 15.3 H 12.2-14.7 SEC INR Comment 1.2 0.8-1.4 Activated Partial Thromboplast Time 30 24-35 SEC Sodium Level 139 135-145 MMOL/L Potassium Level 3.8 3.6-5.0 MMOL/L Chloride Level 108 H 98-107 MMOL/L Carbon Dioxide Level 20 L 21-32 MMOL/L Anion Gap 11 5-14 MMOL/L Blood Urea Nitrogen 50 H 7-18 MG/DL Creatinine 0.91 0.60-1.30 MG/DL Estimat Glomerular Filtration Rate > 60 BUN/Creatinine Ratio 55 Glucose Level 114 H 70-105 MG/DL Lactic Acid Level 1.87 0.50-2.00 MMOL/L Calcium Level 9.9 8.5-10.1 MG/DL Corrected Calcium 9.9 8.5-10.1 MG/DL Magnesium Level 2.2 1.6-2.4 MG/DL Total Bilirubin 0.4 0.1-1.0 MG/DL Aspartate Amino Transf (AST/SGOT) 23 5-34 U/L Alanine Aminotransferase (ALT/SGPT) 23 0-55 U/L Alkaline Phosphatase 89 40-136 U/L Total Creatine Kinase 80 30-200 U/L Creatine Kinase MB 4.6 <6.6 NG/ML Myoglobin 84.2 10.0-92.0 NG/ML Troponin I < 0.028 <0.028 NG/ML B-Type Natriuretic Peptide 78.3 <100.0 PG/ML Total Protein 7.2 6.4-8.2 GM/DL Albumin 4.0 3.2-4.5 GM/DL Amylase Level 109 25-125 U/L Lipase 61 8-78 U/L TSH Lander Testing 1.68 0.35-4.94 UIU/ML Acetaminophen Level < 10 L 10-30 UG/ML Serum Alcohol < 10 <10 MG/DL Glucometer 119 H 70-110 MG/DL Micro Results Microbiology 05/01/19 Blood Culture - Preliminary, Resulted No growth 05/01/19 Blood Culture - Preliminary, Resulted No growth 05/01/19 Influenza Types A,B Antigen (YURY) - Final, Complete My Orders Orders - NAYLA ADAMS DO Accucheck Stat ONCE (05/01/19 19:37) Ed Iv/Invasive Line Start (05/01/19 19:37) Ekg Tracing (05/01/19 19:37) Catheter(Urinary) Insert & Ass 03,15 (05/01/19 19:37) Monitor-Rhythm Ecg Trace Only (05/01/19:37) Acetaminophen (05/01/19:37) Alcohol (05/01/19:37) Amylase (05/01/19:37) BNP (05/01/19:37) Cbc With Automated Diff (05/01/19:37) Comprehensive Metabolic Panel (05/01/19:) Creatine Kinase (05/01/19:37) Creatine Kinase Mb (05/01/19:37) Drug Screen Stat (Urine) (05/01/19:37) Lactic Acid Analyzer (05/01/19:37) Lipase (05/01/19:37) Magnesium (05/01/19:) Protime With Inr (05/01/19:) Partial Thromboplastin Time (05/01/19:37) Thyroid Analyzer (05/01/19:37) Ua Culture If Indicated (05/01/19:37) Blood Culture (05/01/19:37) Influenza A And B Antigens (05/01/19:37) Myoglobin Serum (05/01/19:37) Troponin I (05/01/19:37) Chest 1 View, Ap/Pa Only (05/01/19:37) Ct Head Wo (05/01/19 19:37) Ed Iv/Invasive Line Start (05/01/19 19:37) Lidocaine 2% (Urojet) (Xylocaine Urojet) (05/01/19 20:15) Oseltamivir 75 Mg Capsule (Tamiflu 75 (05/01/19 21:15) Ed Iv/Invasive Line Start (05/01/19 21:40) Lactated Ringers (Lr 1000 Ml Iv Solution (05/01/19 21:40) Medications Given in ED Vital Signs/I&O Capillary Refill : Less Than 3 Seconds Blood Pressure Mean: 95 Point of Care Testing Finger Stick Blood Glucose: 119 Blood Glucose Action Taken: Notified Progress Note : Progress Note GIVEN IV FLUIDS PT DOES SEEM MORE ALERT AND IS MORE INTERACTIVE, AND APPEARS TO UNDERSTAND TO SO ME DEGREE. PT CAN ANSWER A FEW YES/NO QUESTIONS, SUCH WHETHER HE IS HURTING ANYWHERE--SHAKES HEAD AND SAYS NO ADVISED HIM THAT HE WAS SICK WITH THE FLU AND NODDED HEAD YES ASKED HIM IF HE FELT SHORT OF BREATH AND HE SHAKES HIS HEAD NO ASKED HIM IF HE WAS HUNGRY OR THIRSTY AND NODS HEAD AND SAYS YES--TRIES TO TALK--GETS OUT FEW FIRST WORDS OF SENTENCE, THEN BEGINS STAMMERING AND CANNOT COMPLETE SENTENCE. WHEN ASKED IF HE HAD EATEN TODAY--HE SHAKES HIS HEAD NO, AND TRIES TO SAY THAT HE HAS NOT HAD ANYTHING TO EAT ALL DAY--ASKED HIM DIRECTLY IF HE HAD EATEN ANYTHING TODAY, HE SHAKES HIS HEAD NO. NO DETERIORATION IN PT'S CONDITION VITALS STABLE NO DYSPNEA, NO FEVER, NO COUGH AT ANYTIME PT ABLE TO SWALLOW PILLS AND WATER WITHOUT DIFFICULTY. ECG Initial ECG Impression Date: May 01, 2019 Initial ECG Impression Time: 20:49 Initial ECG Rate: 61 Initial ECG Rhythm: Normal Sinus Diagnostic Imaging Comments CXR--NO ACUTE PROCESS CT HEAD--NO ACUTE PROCESS, OLD LEFT THALAMIC INFARCT, MILD PARANASAL SINUS DISEASE, SENESCENT CHANGES PER RADIOLOGIST REPORTS AT 2125 Reviewed: Reviewed by Me Departure Impression Primary Impression: Influenza A Additional Impressions: Dementia PENILE SWELLING AND INFLAMMATION Disposition: 03 XFER SNF Condition: Improved Departure-Patient Inst. Referrals: KASH MAGALLANES MD (PCP/Family) Primary Care Physician Patient Instructions: Flu, Adult (DC), Dementia (DC) Add. Discharge Instructions: ROUTINE [facility] CONTINUE ALL MEDICATIONS PRESCRIBED TYLENOL 1 GRAM/ MOTRIN 800 MG 4 TIMES A DAY FOR PAIN OR FEVER OVER 101 LOTS OF FLUIDS TAKE TAMIFLU 75 MG TWICE A DAY FOR 5 DAYS--FIRST DOSE GIVEN IN ER FOLLOW UP WITH DR. MAGALLANES FOR ANY OTHER ORDERS. All discharge instructions reviewed with patient and/or family. Voiced understanding. Scripts Oseltamivir Phosphate (Tamiflu) 75 Mg Cap 75 MG PO BID for 5 Days, #10 CAP Prov: NAYLA ADAMS DO 05/01/19 NAYLA ADAMS DO May 01, 2019 21:05
[2019-05-01 21:09] LABS: INR 1.2 (0.8-1.4); PROTHROMBIN TIME PATIENT 15.3 SEC (12.2-14.7)
[2019-05-01 21:11] LABS: ALANINE AMINOTRANSFERASE 23 U/L (0-55); ALKALINE PHOSPHATASE 89 U/L (40-136); AMYLASE 109 U/L (25-125); BILIRUBIN,TOTAL 0.4 MG/DL (0.1-1.0); BUN/CREATININE RATIO 55; CALCIUM 9.9 MG/DL (8.5-10.1); CARBON DIOXIDE 20 MMOL/L (21-32); CHLORIDE 108 MMOL/L (98-107); CREATINE KINASE 80 U/L (30-200); CREATININE SERUM 0.91 MG/DL (0.60-1.30); GFR ESTIMATED > 60; GLUCOSE 114 MG/DL (70-105); LIPASE 61 U/L (8-78); MAGNESIUM 2.2 MG/DL (1.6-2.4); POTASSIUM 3.8 MMOL/L (3.6-5.0); SODIUM 139 MMOL/L (135-145); TOTAL PROTEIN 7.2 GM/DL (6.4-8.2)
[2019-05-01 21:14] LABS: ACETAMINOPHEN < 10 UG/ML (10-30)
[2019-05-01] MEDS ORDERED: OSELTAMIVIR 75 MG (TAMIFLU) CAPSULE PO ONE (21:15)
--- NOTE | 2019-05-01 21:23 | Diagnostic Imaging Report ---
PROCEDURE: CT head without contrast. TECHNIQUE: Multiple contiguous axial images were obtained through the brain without the use of intravenous contrast. Auto Exposure Controls were utilized during the CT exam to meet ALARA standards for radiation dose reduction. INDICATION: Altered mental status, confusion COMPARISON STUDY: Head CT from 11/30/2014. FINDINGS: Noncontrast CT scan of the head demonstrates diffuse atrophy and some white matter changes which has not appreciably changed. There is no mass effect, midline shift or hemorrhage. An old lacunar infarct is present in the left thalamus. Bone windows appear unremarkable. Small mucous retention cysts are seen in the floor of the maxillary sinuses. IMPRESSION: 1. Stable CT scan of the head with atrophy, white matter disease and an old left thalamic infarct. 2. Mild paranasal sinus disease present. Dictated by: Dictated on workstation # [id number]
--- NOTE | 2019-05-01 21:26 | Diagnostic Imaging Report ---
INDICATION: Altered mental status, confusion. COMPARISON STUDY: Chest from 03/13/2017. FINDINGS: Portable upright view of the chest demonstrates cardiac pacemaker remaining in place. Lungs are clear. The heart size and vascularity are normal. Mild calcifications are seen in the aorta. IMPRESSION: There are no acute findings. Dictated by: Dictated on workstation # [id number]
[2019-05-01 21:33] LABS: CREATINE KINASE MB 4.6 NG/ML (<6.6); TSH (THYROID ANALYZER) 1.68 UIU/ML (0.35-4.94)
[2019-05-01] MEDS ORDERED: LACTATED RINGERS 1,000 ML IV ONE (21:40)
[2019-05-01] MEDS ORDERED: OSLT75C PO (22:28)
[2019-05-01 22:57] VITALS: BP 146/70
--- OUTSIDE RECORDS SUMMARY | 2019-05-03 17:51 | XMS REPORT ---
Author Author [facility] Organization [facility] Address [address] [address] Care Team Providers Care Motor Scooter Repairer Name Role Phone KASH MAGALLANES Unavailable MITA KHAN MD Unavailable Unavailable MITA KHAN MD Unavailable Unavailable Allergies Normalized Allergy Reported Date of Reaction(s) Care Provider Facility Allergy Type classification allergen Allergy Onset no information Unclassified Nka 09-10-2007 - no information MITA KHAN Not Available (15 sources.) , (86826) DA (15 Unclassified No Known Drug 01-05-2015 - no information MITA KHAN Not Available sources.) Allergies , (00896) Medications No Information Problems Active Problems Problem Normalized Date of Normalized Normalized Provider Fac ility Classification Problem(s) Problem Problem Problem Sta tus Onset/Resoluti Duration on NEGATED Atheroscleroti no information Active JULIO CÉSAR YOO , Not Available no c heart (78983) information disease of (10 sources.) [place] coronary artery without angina pectoris Translations: [ OLD MYOCARDIAL INFARCTION, PRESENCE OF CORONARY ANGIOPLASTY IMPLANT] Coronary Atheroscleroti Chronic Active MITA SERNAGERS Not Available atherosclerosi c heart MD (65736) s and other disease of heart disease [place] (10 sources.) coronary artery without angina pectoris Translations: [ CHRONIC TOTAL OCCLUSION OF CORONARY CRESENCIO, OLD MYOCARDIAL INFARCTION] Hyperplasia of Benign Chronic Active MITA ODGERS Not Available prostate (14 prostatic , (45928) sources.) hyperplasia without lower urinary tract symptoms Translations: [ BENIGN PROSTATIC HYPERPLASIA WITH LOWER ] NEGATED Bradycardia, Chronic Active JULIO CÉSAR YOO , Not Available no unspecified (74219) information Translations: (10 sources.) [ SICK SINUS SYNDROME, BRADYCARDIA, UNSPECIFIED] Ila-; endo-; Cardiomyopathy Chronic Active MITA ODGERS Not Available and , unspecified , (54216) myocarditis; cardiomyopathy (except that caused by tuberculosis or sexually transmitted disease) (4 sources.) Delirium, Delirium due Episodic Active JULIO CÉSAR NAILA , Not Available dementia to known MD (07787) amnestic and physiological other condition cognitive Translations: disorders (6 [ DEMENTIA IN sources.) OTH DISEASES CLASSD ELSWHR W, ALZHEIMER'S DISEASE, UNSPECIFIED] Acute Non-ST Chronic Active MITA ODGERS Not Avail able myocardial elevation , () infarction (4 (NSTEMI) sources.) myocardial infarction NEGATED Primary Chronic Active JULIO CÉSAR YOO , Not Avai lable no osteoarthritis () information , unspecified (10 sources.) site NEGATED Unspecified Chronic Active JULIO CÉSAR YOO , Not A vailable no hearing loss, () information bilateral (10 sources.) Past or Other Problems Problem Normalized Date of Normalized Normalized Provider Fac ility Classification Problem(s) Problem Problem Problem Sta tus Onset/Resoluti Duration on Acute and Acute kidney Episodic Completed MITA ODGERS Not A vailable unspecified failure, , () renal failure unspecified (4 sources.) Adverse Adverse effect no information no information MITA O DGERS Not Available effects of of , () medical drugs benzodiazepine (10 sources.) s, initial encounter Translations: [ ADVERSE EFFECT OF UNSPECIFIED NARCOTICS,, ADVERSE EFFECT OF UNSP GENERAL ANESTHETI] Residual Disorientation Episodic Completed MITA ODGERS Not Available codes; , unspecified , () unclassified (4 sources.) Other eye Dry eye Episodic Completed MITA ODGERS Not Avail able disorders (4 syndrome of , () sources.) unspecified lacrimal gland Other Dysphagia, Episodic Completed MITA ODGERS Not Shirley ilable gastrointestin oropharyngeal , () al disorders phase (4 sources.) Fluid and Hyperkalemia Episodic Completed MITA ODGERS Not A vailable electrolyte Translations: , () disorders (14 [ HYPOKALEMIA] sources.) Screening and Personal Episodic Completed MITA ODGERS Not A vailable history of history of , () mental health nicotine and substance dependence abuse codes (14 sources.) NEGATED Personal Episodic Completed JULIO CÉSAR FALK , Not Avai lable no history of () information urinary (10 sources.) (tract) infections Aspiration Pneumonitis Episodic Completed MITA ODGERS Not A vailable pneumonitis; due to , () food/vomitus inhalation of (4 sources.) food and vomit Genitourinary Retention of Episodic Completed MITA ODGERS N ot Available symptoms and urine, , (00798) ill-defined unspecified conditions (4 sources.) Syncope (2 Syncope and Episodic Completed MITA ODGERS Not A vailable sources.) collapse , (61864) NEGATED Unspecified Episodic Completed JULIO CÉSAR YOO , Not A vailable no convulsions (58960) information (10 sources.) Intestinal Unspecified Episodic Completed MITA ODGERS Not A vailable obstruction intestinal , (13711) without hernia obstruction (4 sources.) Other Vomiting of Episodic Completed MITA ODGERS Not Av ailable gastrointestin fecal matter , (23726) al disorders (4 sources.) Procedures Procedure Normalized Procedure Procedure Result Performer Facility Date DILATION OF 2 COR ART no information no name (no phone) Not Available (69539) WITH 2 DRUG-ELUT, DILATION OF CORONARY no information no name (no phone) Not A vailable (52018) ARTERY, ONE ARTERY, FLUOROSCOPY OF LEFT no information no name (no phone) Not Av ailable (35337) HEART USING LOW OSMO FLUOROSCOPY OF MULT no information no name (no phone) Not Av ailable (61030) COR ART USING L OSM FLUOROSCOPY OF R UP no information no name (no phone) Not Av ailable (73082) EXTREM ART USING L O INSERT PACE. DUAL JORDY no information no name (no phone) Not Available (06566) IN CHEST SUBCU/FA INSERTION OF PACEMAKER no information no name (no phone) Not Available (97420) LEAD INTO R VENTR INSERTION OF PACEMAKER no information no name (no phone) Not Available (26228) LEAD INTO RIGHT A Immunizations No Information Results No Information Vital Signs The data below is from unstructured sources Vital Response Date/Time Temperature (Fahrenheit) 97.3 degree s F (97.6 - 99.5) 01/09/2015 11:30am Temperature (Calculated Celsius) 36. 49699 degrees C (36.4 - 37.5) 01/09/2015 6:00am Temperature Source Tympanic 01/09/2015 11:30am Pulse Rate (adult) 63 bpm (60 - 90) 01/09/2015 11:30am Respiratory Rate 17 bpm (12 - 24) 01/09/2015 11:30am O2 Sat by Pulse Oximetry 92 % (88 - 100) 01/09/2015 11:30am Blood Pressure 137/65 mm Hg 01/09/2015 11:30am Blood Pressure Mean 89 mm Hg 01/09/2015 6:00am Pain Pain Intensity 0 2014 8:00am Height (Feet) 5 feet 6:40am Height (Inches) 6.00 inches 01/05/2015 6:40am Height (Calculated Centimeters) 167. 950234 cm 01/05/2015 6:40am Weight (Pounds) 147 pounds 01/05/2015 6:40am Weight (Ounces) 0.0 oz 1 03/07/2014 6:40am Weight (Calculated Grams) 31358.079 gm 01/05/2015 6:40am Weight (Calculated Kilograms) 66.678 079 kilograms 01/05/2015 6:40am Calculated BMI 23.72 6:40am Interventions No Information Plan of Treatment The data below is from unstructured sources Discharge Date 01/09/15 11:30am Instructions/Education Provided Sykes surethral Prostatectomy (DC) Prescriptions See Medication Section Goals No Information Social History No Information Functional Status The data below is from unstructured sources Query Response Date Josue rded Patient Orientation Person Confused January 09, 2015 6:24pm Comprehension Ability Understands Co ncepts January 09, 2015 8:00am Mental Status No Information Encounters Encounter Normalized Encounter Encounter Diagnosis Care Provi oumar Organization Date Type 03-11-2017 Emergency department no information no name (no jessy ne) no organization name patient visit (no phone) NEGATED Evaluation and no information no name (no phone) n o organization name 03-11-2017 management of (no phone) - inpatient 03-13-2017 02-17-2016 Evaluation and no information no name (no phone) n o organization name - management of (no phone) 02-23-2016 inpatient 03-11-2017 Patient encounter no information no name (no phone) no organization name - (no phone) 03-13-2017 Medical Equipment No Information Payers No Information Advance Directives Directive Response Recor ded Date/Time Advance Directives No 12:29pm Health Care Power of Wallpaper Cleaner No 01/05/15 12:29pm Organ Donor No 01/05/15 12:29pm Resuscitation Status Full Code 01/05/15 12:29pm Discharge Instructions No hospital discharge instructions. Additional Source Comments This clinical document has been generated using [employer] software that has been certified by the Office of the National Coordinator for Health Information Technology (ONC 15.99.04.3023.Diam.31.00.0.761234) and the National Committee for Legal [employer] (NCQA, as an eMeasure certified technology). FOR RECORDS PERTAINING TO PATIENTS WHO ARE OR HAVE BEEN ENROLLED IN A CHEMICAL D EPENDENCY/SUBSTANCE ABUSE PROGRAM, SOME INFORMATION MAY BE OMITTED. This clinica l summary was aggregated from multiple sources. Caution should be exercised in using it in the provision of clinical care. This summary normalizes information from multiple sources, and as a consequence, information in this document may ma terially change the coding, format and clinical context of patient data. In simon tion, data may be omitted in some cases. CLINICAL DECISIONS SHOULD BE BASED ON T HE PRIMARY CLINICAL RECORDS. [employer] provides no warranty or guara ntee of the accuracy or completeness of information in this document.The followi ng information is based on time limited clinical information
--- OUTSIDE RECORDS SUMMARY | 2019-05-03 17:52 | XMS REPORT | Continuity of Care Document ---
Author Organization Unknown Address Unknown Phone Unavailable Allergies Active Description Code Type Severity Reaction Onset Reported/Identified Relationship to Patient Clinical Status Yes Nka Nka Mild N/A 09/10/2007 Yes No Known Drug Allergies [id number] Drug Allergy Unknown N/A 01/05/2015 Medications There is no data. Problems Date Dx Coded Attending Type Code Diagnosis Diagnosed By 11/30/2014 BRENDA MOTT CAN OPERATOR Ot K59.00 11/30/2014 BRENDA MOTT CAN OPERATOR Ot S00.01XA 11/30/2014 BRENDA MOTT CAN OPERATOR Ot W18.12XA 11/30/2014 BRENDA MOTT CAN OPERATOR Ot Y99 .8 12/22/2014 SONA HAUSER, KASH Sabillon Ot N13. 9 12/23/2014 KASH MAGALLANES MD Ot N13. 9 01/09/2015 LAUREN HAUSER, HOOD A Ot N40.1 01/09/2015 LAUREN HAUSER, HOOD A Ot R33.8 01/20/2015 LAUREN HAUSER, HOOD A Ot N40.1 01/20/2015 LAUREN HAUSER, HOOD A Ot R33.8 01/20/2015 LAUREN HAUSER, HOOD A Ot Z01.8 10 01/20/2015 LAUREN HAUSER, HOOD A Ot Z01.8 11 01/20/2015 LAUREN HAUSER, HOOD A Ot Z01.8 12 01/20/2015 LAUREN HAUSER, HOOD A Ot Z11.2 02/18/2016 MITA KHAN MD Ot R55 SYNCOPE AND COLLAPSE 02/18/2016 MITA KHAN MD Ot R55 SYNCOPE AND COLLAPSE 02/18/2016 MITA KHAN MD Ot R55 SYNCOPE AND COLLAPSE 02/19/2016 MITA KHAN MD Ot R55 SYNCOPE AND COLLAPSE 02/21/2016 MITA KHAN MD Ot R55 SYNCOPE AND COLLAPSE 02/23/2016 MITA KHAN MD Ot E87 .6 HYPOKALEMIA 02/23/2016 MITA KHAN MD Ot 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 02/23/2016 MITA KHAN MD Ot I21 .4 NON-ST ELEVATION (NSTEMI) MYOCARDIAL INF 02/23/2016 MITA KHAN MD Ot I25.10 ATHSCL HEART DISEASE OF [place] CORONARY 02/23/2016 MITA KHAN MD Ot 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 02/23/2016 MITA KHAN MD Ot 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 02/23/2016 MITA KHAN MD Ot I42 .9 CARDIOMYOPATHY, UNSPECIFIED 02/23/2016 MITA KHAN MD Ot J69 .0 PNEUMONITIS DUE TO INHALATION OF FOOD AN 02/23/2016 MITA KHAN MD Ot K56.60 UNSPECIFIED INTESTINAL OBSTRUCTION 02/23/2016 MITA KHAN MD Ot N17 .9 ACUTE KIDNEY FAILURE, UNSPECIFIED 02/23/2016 MITA KHAN MD Ot N40 .1 BENIGN PROSTATIC HYPERPLASIA WITH LOWER 02/23/2016 MITA KHAN MD Ot R11.13 VOMITING OF FECAL MATTER 02/23/2016 MITA KHAN MD Ot R13.12 DYSPHAGIA, OROPHARYNGEAL PHASE 02/23/2016 MITA KHAN MD Ot R33 .9 RETENTION OF URINE, UNSPECIFIED 02/23/2016 MITA KHAN MD Ot R41 .0 DISORIENTATION, UNSPECIFIED 02/23/2016 MITA KHAN MD Ot T40.605A ADVERSE EFFECT OF UNSPECIFIED NARCOTICS, 02/23/2016 MITA KHAN MD Ot T41.205A ADVERSE EFFECT OF UNSP GENERAL ANESTHETI 02/23/2016 MITA KHAN MD Ot T42.4X5A ADVERSE EFFECT OF BENZODIAZEPINES, INITI 02/23/2016 MITA KHAN MD Ot Z87.891 PERSONAL HISTORY OF NICOTINE DEPENDENCE 03/12/2017 JULIO CÉSAR YOO MD Ot E87. 5 HYPERKALEMIA 03/12/2017 JULIO CÉSAR YOO MD Ot H91. 93 UNSPECIFIED HEARING LOSS, BILATERAL 03/12/2017 JULIO CÉSAR YOO MD Ot I25. 10 ATHSCL HEART DISEASE OF [place] CORONARY 03/12/2017 JULIO CÉSAR YOO MD Ot I25. 2 OLD MYOCARDIAL INFARCTION 03/12/2017 JULIO CÉSAR YOO MD Ot M19. 91 PRIMARY OSTEOARTHRITIS, UNSPECIFIED SITE 03/12/2017 JULIO CÉSAR YOO MD Ot N40. 0 BENIGN PROSTATIC HYPERPLASIA WITHOUT LOW 03/12/2017 JULIO CÉSAR YOO MD Ot R00. 1 BRADYCARDIA, UNSPECIFIED 03/12/2017 JULIO CÉSAR YOO MD Ot R56. 9 UNSPECIFIED CONVULSIONS 03/12/2017 JULIO CÉSAR YOO MD Ot Z87.440 PERSONAL HISTORY OF URINARY (TRACT) INFE 03/12/2017 JULIO CÉSAR YOO MD Ot Z87.891 PERSONAL HISTORY OF NICOTINE DEPENDENCE 03/12/2017 JULIO CÉSAR YOO MD Ot Z95. 5 PRESENCE OF CORONARY ANGIOPLASTY IMPLANT 03/12/2017 JULIO CÉSAR YOO MD Ot E87. 5 HYPERKALEMIA 03/12/2017 JULIO CÉSAR YOO MD Ot H91. 93 UNSPECIFIED HEARING LOSS, BILATERAL 03/12/2017 JULIO CÉSAR YOO MD Ot I25. 10 ATHSCL HEART DISEASE OF [place] CORONARY 03/12/2017 JULIO CÉSAR YOO MD Ot I25. 2 OLD MYOCARDIAL INFARCTION 03/12/2017 JULIO CÉSAR YOO MD Ot M19. 91 PRIMARY OSTEOARTHRITIS, UNSPECIFIED SITE 03/12/2017 JULIO CÉSAR YOO MD Ot N40. 0 BENIGN PROSTATIC HYPERPLASIA WITHOUT LOW 03/12/2017 JULIO CÉSAR YOO MD Ot R00. 1 BRADYCARDIA, UNSPECIFIED 03/12/2017 JULIO CÉSAR YOO MD Ot R56. 9 UNSPECIFIED CONVULSIONS 03/12/2017 JULIO CÉSAR YOO MD Ot Z87.440 PERSONAL HISTORY OF URINARY (TRACT) INFE 03/12/2017 JULIO CÉSAR YOO MD Ot Z87.891 PERSONAL HISTORY OF NICOTINE DEPENDENCE 03/12/2017 JULIO CÉSAR YOO MD Ot Z95. 5 PRESENCE OF CORONARY ANGIOPLASTY IMPLANT 03/13/2017 JULIO CÉSAR YOO MD Ot E87. 5 HYPERKALEMIA 03/13/2017 JULIO CÉSAR YOO MD Ot H91. 93 UNSPECIFIED HEARING LOSS, BILATERAL 03/13/2017 JULIO CÉSAR YOO MD Ot I25. 10 ATHSCL HEART DISEASE OF [place] CORONARY 03/13/2017 JULIO CÉSAR YOO MD Ot I25. 2 OLD MYOCARDIAL INFARCTION 03/13/2017 JULIO CÉSAR YOO MD Ot M19. 91 PRIMARY OSTEOARTHRITIS, UNSPECIFIED SITE 03/13/2017 JULIO CÉSAR YOO MD Ot N40. 0 BENIGN PROSTATIC HYPERPLASIA WITHOUT LOW 03/13/2017 JULIO CÉSAR YOO MD Ot R00. 1 BRADYCARDIA, UNSPECIFIED 03/13/2017 JULIO CÉSAR YOO MD Ot R56. 9 UNSPECIFIED CONVULSIONS 03/13/2017 JULIO CÉSAR YOO MD Ot Z87.440 PERSONAL HISTORY OF URINARY (TRACT) INFE 03/13/2017 JULIO CÉSAR YOO MD Ot Z87.891 PERSONAL HISTORY OF NICOTINE DEPENDENCE 03/13/2017 JULIO CÉSAR YOO MD Ot Z95. 5 PRESENCE OF CORONARY ANGIOPLASTY IMPLANT 03/13/2017 JULIO CÉSAR YOO MD Ot E87. 5 HYPERKALEMIA 03/13/2017 JULIO CÉSAR YOO MD Ot F02. 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 9 ALZHEIMER'S DISEASE, UNSPECIFIED 03/13/2017 JULIO CÉSAR YOO MD Ot H91. 93 UNSPECIFIED HEARING LOSS, BILATERAL 03/13/2017 JULIO CÉSAR YOO MD Ot I25. 10 ATHSCL HEART DISEASE OF [place] CORONARY 03/13/2017 JULIO CÉSAR YOO MD Ot I25. 2 OLD MYOCARDIAL INFARCTION 03/13/2017 JULIO CÉSAR YOO MD Ot I49. 5 SICK SINUS SYNDROME 03/13/2017 JULIO CÉSAR YOO MD Ot M19. 91 PRIMARY OSTEOARTHRITIS, UNSPECIFIED SITE 03/13/2017 JULIO CÉSAR YOO MD Ot N40. 0 BENIGN PROSTATIC HYPERPLASIA WITHOUT LOW 03/13/2017 JULIO CÉSAR YOO MD Ot R56. 9 UNSPECIFIED CONVULSIONS 03/13/2017 JULIO CÉSAR YOO MD Ot Z87.440 PERSONAL HISTORY OF URINARY (TRACT) INFE 03/13/2017 JULIO CÉSAR YOO MD Ot Z87.891 PERSONAL HISTORY OF NICOTINE DEPENDENCE 03/13/2017 NAILA HAUSER, JULIO CÉSAR M Ot Z95. 5 PRESENCE OF CORONARY ANGIOPLASTY IMPLANT Procedures Code Description Performed By Per formed On [id number] FL UOROSCOPY OF MULT COR ART USING L OSM 02/18/2016 [id number] FL UOROSCOPY OF LEFT HEART USING LOW OSMO 02/18/2016 [id number] FL UOROSCOPY OF R UP EXTREM ART USING L O 02/18/2016 [id number] DI LATION OF CORONARY ARTERY, ONE ARTERY, 02/21/2016 [id number] DI LATION OF 2 COR ART WITH 2 DRUG-ELUT, 02/21/2016 [id number] FL UOROSCOPY OF R UP EXTREM ART USING L O 02/21/2016 [id number] IN SERTION OF PACEMAKER LEAD INTO RIGHT A 03/12/2017 [id number] IN SERTION OF PACEMAKER LEAD INTO R VENTR 03/12/2017 [id number] IN SERT PACE. DUAL JORDY IN CHEST SUBCU/FA 03/12/2017 Results Test Result Range Complete blood count (CBC) with automate d white blood cell (WBC) differential - 02/16/16 11:44 Blood leukocytes automated count (number/volume) 8.2 10*3/uL 4.3-11.0 Blood erythrocytes automated count (number/volume) 4.57 10*6/uL 4.35-5.85 Venous blood hemoglobin measurement (mass/volume) 14.1 g/dL 13.3-17.7 Blood hematocrit (volume fraction) 40 % 40-54 Automated erythrocyte mean corpuscular volume 87 [ foz_us] 80-99 Automated erythrocyte mean corpuscular h emoglobin (mass per erythrocyte) 31 pg 25-34 Automated erythrocyte mean corpuscular h emoglobin concentration measurement (mass/volume) 35 g/dL 32-36 Automated erythrocyte distribution width ratio 12. 6 % 10.0- 14.5 Automated blood platelet count (count/volume) 174 10*3/uL 130-400 Automated blood platelet mean volume measurement 9.3 [foz_us] 7.4-10.4 Automated blood neutrophils/100 leukocytes 53 % 42-75 Automated blood lymphocytes/100 leukocytes 36 % 12-44 Blood monocytes/100 leukocytes 8 % 0-12 Automated blood eosinophils/100 leukocytes 2 % 0-10 Automated blood basophils/100 leukocytes 0 % 0-10 Blood neutrophils automated count (number/volume) 4.4 10*3 1.8-7.8 Blood lymphocytes automated count (number/volume) 3.0 10*3 1.0-4.0 Blood monocytes automated count (number/volume) 0. 7 10*3 0.0-1.0 Automated eosinophil count 0.2 10*3/uL 0 .0-0.3 Automated blood basophil count (count/volume) 0.0 10*3/uL 0.0-0.1 Comprehensive metabolic panel - 02/16/16 11:44 Serum or plasma sodium measurement (moles/volume) 136 mmol/L 135-145 Serum or plasma potassium measurement (moles/volume) 3.7 mmol/L 3.6-5.0 Serum or plasma chloride measurement (moles/volume) 105 mmol/L 98-107 Carbon dioxide 21 mmol/L 21-32 Serum or plasma anion gap determination (moles/volume) 10 mmol/L 5-14 Serum or plasma urea nitrogen measurement (mass/volume ) 16 mg/dL 7-18 Serum or plasma creatinine measurement (mass/volume) 1.31 mg/dL 0.60-1.30 Serum or plasma urea nitrogen/creatinine mass ratio 12 NRG Serum or plasma creatinine measurement w ith calculation of estimated glomerular filtration rate 52 NRG Serum or plasma glucose measurement (mass/volume) 158 mg/dL 70-105 Serum or plasma calcium measurement (mass/volume) 8.9 mg/dL 8.5-10.1 Serum or plasma total bilirubin measurement (mass/volu me) 0.6 mg/dL 0.1-1.0 Serum or plasma alkaline phosphatase chuy surement (enzymatic activity/volume) 98 U/L 40-136 Serum or plasma aspartate aminotransfera se measurement (enzymatic activity/volume) 19 U/L 5-34 Serum or plasma alanine aminotransferase measurement (enzymatic activity/volume) 10 U/L 0-55 Serum or plasma protein measurement (mass/volume) 6.8 g/dL 6.4-8.2 Serum or plasma albumin measurement (mass/volume) 4.0 g/dL 3.2-4.5 Serum or plasma troponin i.cardiac measu rement (mass/volume) - 02/16/16 11:44 Serum or plasma troponin i.cardiac measurement (mass/v olume) < ng/mL <0.30 Serum or plasma C reactive protein measu rement (mass/volume) - 02/16/16 11:44 Serum or plasma C reactive protein measurement (mass/v olume) 0.28 mg/dL 0.00-0.50 Bacterial blood culture - 02/16/16 12:08 FREE TEXT EXTERNAL SEE COMMENTS NRG QUANTITY OF GROWTH Isolated NR Bacterial blood culture [id number] [facility] Blood lactic acid measurement (moles/vol ume) - 02/16/16 12:44 Blood lactic acid measurement (moles/volume) 1.7 m mol/L 0.5- 2.0 Bacterial blood culture - 02/16/16 12:44 Bacterial blood culture NG NRG Complete blood count (CBC) with automate d white blood cell (WBC) differential - 02/17/16 05:40 Blood leukocytes automated count (number/volume) 8.8 10*3/uL 4.3-11.0 Blood erythrocytes automated count (number/volume) 4.27 10*6/uL 4.35-5.85 Venous blood hemoglobin measurement (mass/volume) 13.2 g/dL 13.3-17.7 Blood hematocrit (volume fraction) 38 % 40-54 Automated erythrocyte mean corpuscular volume 89 [ foz_us] 80-99 Automated erythrocyte mean corpuscular h emoglobin (mass per erythrocyte) 31 pg 25-34 Automated erythrocyte mean corpuscular h emoglobin concentration measurement (mass/volume) 35 g/dL 32-36 Automated erythrocyte distribution width ratio 12. 7 % 10.0- 14.5 Automated blood platelet count (count/volume) 183 10*3/uL 130-400 Automated blood platelet mean volume measurement 9.8 [foz_us] 7.4-10.4 Automated blood neutrophils/100 leukocytes 80 % 42-75 Automated blood lymphocytes/100 leukocytes 11 % 12-44 Blood monocytes/100 leukocytes 9 % 0-12 Automated blood eosinophils/100 leukocytes 0 % 0-10 Automated blood basophils/100 leukocytes 0 % 0-10 Blood neutrophils automated count (number/volume) 7.0 10*3 1.8-7.8 Blood lymphocytes automated count (number/volume) 0.9 10*3 1.0-4.0 Blood monocytes automated count (number/volume) 0. 8 10*3 0.0-1.0 Automated eosinophil count 0.0 10*3/uL 0 .0-0.3 Automated blood basophil count (count/volume) 0.0 10*3/uL 0.0-0.1 Comprehensive metabolic panel - 02/17/16 05:40 Serum or plasma sodium measurement (moles/volume) 141 mmol/L 135-145 Serum or plasma potassium measurement (moles/volume) 3.4 mmol/L 3.6-5.0 Serum or plasma chloride measurement (moles/volume) 106 mmol/L 98-107 Carbon dioxide 25 mmol/L 21-32 Serum or plasma anion gap determination (moles/volume) 10 mmol/L 5-14 Serum or plasma urea nitrogen measurement (mass/volume ) 16 mg/dL 7-18 Serum or plasma creatinine measurement (mass/volume) 1.25 mg/dL 0.60-1.30 Serum or plasma urea nitrogen/creatinine mass ratio 13 NRG Serum or plasma creatinine measurement w ith calculation of estimated glomerular filtration rate 55 NRG Serum or plasma glucose measurement (mass/volume) 117 mg/dL 70-105 Serum or plasma calcium measurement (mass/volume) 8.6 mg/dL 8.5-10.1 Serum or plasma total bilirubin measurement (mass/volu me) 0.9 mg/dL 0.1-1.0 Serum or plasma alkaline phosphatase chuy surement (enzymatic activity/volume) 82 U/L 40-136 Serum or plasma aspartate aminotransfera se measurement (enzymatic activity/volume) 16 U/L 5-34 Serum or plasma alanine aminotransferase measurement (enzymatic activity/volume) 8 U/L 0-55 Serum or plasma protein measurement (mass/volume) 6.5 g/dL 6.4-8.2 Serum or plasma albumin measurement (mass/volume) 3.7 g/dL 3.2-4.5 Complete blood count (CBC) with automate d white blood cell (WBC) differential - 02/18/16 06:00 Blood leukocytes automated count (number/volume) 8.2 10*3/uL 4.3-11.0 Blood erythrocytes automated count (number/volume) 3.86 10*6/uL 4.35-5.85 Venous blood hemoglobin measurement (mass/volume) 12.0 g/dL 13.3-17.7 Blood hematocrit (volume fraction) 35 % 40-54 Automated erythrocyte mean corpuscular volume 90 [ foz_us] 80-99 Automated erythrocyte mean corpuscular h emoglobin (mass per erythrocyte) 31 pg 25-34 Automated erythrocyte mean corpuscular h emoglobin concentration measurement (mass/volume) 35 g/dL 32-36 Automated erythrocyte distribution width ratio 12. 7 % 10.0- 14.5 Automated blood platelet count (count/volume) 141 10*3/uL 130-400 Automated blood platelet mean volume measurement 9.4 [foz_us] 7.4-10.4 Automated blood neutrophils/100 leukocytes 80 % 42-75 Automated blood lymphocytes/100 leukocytes 10 % 12-44 Blood monocytes/100 leukocytes 10 % 0-12 Automated blood eosinophils/100 leukocytes 0 % 0-10 Automated blood basophils/100 leukocytes 0 % 0-10 Blood neutrophils automated count (number/volume) 6.6 10*3 1.8-7.8 Blood lymphocytes automated count (number/volume) 0.8 10*3 1.0-4.0 Blood monocytes automated count (number/volume) 0. 8 10*3 0.0-1.0 Automated eosinophil count 0.0 10*3/uL 0 .0-0.3 Automated blood basophil count (count/volume) 0.0 10*3/uL 0.0-0.1 Comprehensive metabolic panel - 02/18/16 06:00 Serum or plasma sodium measurement (moles/volume) 138 mmol/L 135-145 Serum or plasma potassium measurement (moles/volume) 3.8 mmol/L 3.6-5.0 Serum or plasma chloride measurement (moles/volume) 111 mmol/L 98-107 Carbon dioxide 17 mmol/L 21-32 Serum or plasma anion gap determination (moles/volume) 10 mmol/L 5-14 Serum or plasma urea nitrogen measurement (mass/volume ) 14 mg/dL 7-18 Serum or plasma creatinine measurement (mass/volume) 1.07 mg/dL 0.60-1.30 Serum or plasma urea nitrogen/creatinine mass ratio 13 NRG Serum or plasma creatinine measurement w ith calculation of estimated glomerular filtration rate > NRG Serum or plasma glucose measurement (mass/volume) 120 mg/dL 70-105 Serum or plasma calcium measurement (mass/volume) 7.9 mg/dL 8.5-10.1 Serum or plasma total bilirubin measurement (mass/volu me) 1.2 mg/dL 0.1-1.0 Serum or plasma alkaline phosphatase chuy surement (enzymatic activity/volume) 66 U/L 40-136 Serum or plasma aspartate aminotransfera se measurement (enzymatic activity/volume) 47 U/L 5-34 Serum or plasma alanine aminotransferase measurement (enzymatic activity/volume) 11 U/L 0-55 Serum or plasma protein measurement (mass/volume) 6.0 g/dL 6.4-8.2 Serum or plasma albumin measurement (mass/volume) 3.2 g/dL 3.2-4.5 Serum or plasma troponin i.cardiac measu rement (mass/volume) - 02/18/16 12:00 Serum or plasma troponin i.cardiac measurement (mass/v olume) 8.75 ng/mL <0.30 Complete blood count (CBC) with automate d white blood cell (WBC) differential - 02/19/16 04:25 Blood leukocytes automated count (number/volume) 7.3 10*3/uL 4.3-11.0 Blood erythrocytes automated count (number/volume) 3.65 10*6/uL 4.35-5.85 Venous blood hemoglobin measurement (mass/volume) 11.3 g/dL 13.3-17.7 Blood hematocrit (volume fraction) 33 % 40-54 Automated erythrocyte mean corpuscular volume 90 [ foz_us] 80-99 Automated erythrocyte mean corpuscular h emoglobin (mass per erythrocyte) 31 pg 25-34 Automated erythrocyte mean corpuscular h emoglobin concentration measurement (mass/volume) 34 g/dL 32-36 Automated erythrocyte distribution width ratio 12. 8 % 10.0- 14.5 Automated blood platelet count (count/volume) 134 10*3/uL 130-400 Automated blood platelet mean volume measurement 9.8 [foz_us] 7.4-10.4 Automated blood neutrophils/100 leukocytes 77 % 42-75 Automated blood lymphocytes/100 leukocytes 12 % 12-44 Blood monocytes/100 leukocytes 10 % 0-12 Automated blood eosinophils/100 leukocytes 2 % 0-10 Automated blood basophils/100 leukocytes 0 % 0-10 Blood neutrophils automated count (number/volume) 5.6 10*3 1.8-7.8 Blood lymphocytes automated count (number/volume) 0.9 10*3 1.0-4.0 Blood monocytes automated count (number/volume) 0. 7 10*3 0.0-1.0 Automated eosinophil count 0.1 10*3/uL 0 .0-0.3 Automated blood basophil count (count/volume) 0.0 10*3/uL 0.0-0.1 Whole blood basic metabolic panel - 01/21 03/06 04:25 Serum or plasma sodium measurement (moles/volume) 137 mmol/L 135-145 Serum or plasma potassium measurement (moles/volume) 3.9 mmol/L 3.6-5.0 Serum or plasma chloride measurement (moles/volume) 109 mmol/L 98-107 Carbon dioxide 21 mmol/L 21-32 Serum or plasma anion gap determination (moles/volume) 7 mmol/L 5-14 Serum or plasma urea nitrogen measurement (mass/volume ) 16 mg/dL 7-18 Serum or plasma creatinine measurement (mass/volume) 1.12 mg/dL 0.60-1.30 Serum or plasma urea nitrogen/creatinine mass ratio 14 NRG Serum or plasma creatinine measurement w ith calculation of estimated glomerular filtration rate > NRG Serum or plasma glucose measurement (mass/volume) 103 mg/dL 70-105 Serum or plasma calcium measurement (mass/volume) 8.3 mg/dL 8.5-10.1 Serum or plasma phosphate measurement (m ass/volume) - 02/19/16 04:25 Serum or plasma phosphate measurement (mass/volume) 1.3 mg/dL 2.3-4.7 Magnesium - 02/19/16 04:25 Magnesium 1.8 mg/dL 1.8-2.4 Complete blood count (CBC) with automate d white blood cell (WBC) differential - 02/20/16 03:56 Blood leukocytes automated count (number/volume) 5.5 10*3/uL 4.3-11.0 Blood erythrocytes automated count (number/volume) 3.76 10*6/uL 4.35-5.85 Venous blood hemoglobin measurement (mass/volume) 11.5 g/dL 13.3-17.7 Blood hematocrit (volume fraction) 33 % 40-54 Automated erythrocyte mean corpuscular volume 88 [ foz_us] 80-99 Automated erythrocyte mean corpuscular h emoglobin (mass per erythrocyte) 31 pg 25-34 Automated erythrocyte mean corpuscular h emoglobin concentration measurement (mass/volume) 35 g/dL 32-36 Automated erythrocyte distribution width ratio 12. 5 % 10.0- 14.5 Automated blood platelet count (count/volume) 148 10*3/uL 130-400 Automated blood platelet mean volume measurement 9.5 [foz_us] 7.4-10.4 Automated blood neutrophils/100 leukocytes 75 % 42-75 Automated blood lymphocytes/100 leukocytes 15 % 12-44 Blood monocytes/100 leukocytes 7 % 0-12 Automated blood eosinophils/100 leukocytes 3 % 0-10 Automated blood basophils/100 leukocytes 0 % 0-10 Blood neutrophils automated count (number/volume) 4.1 10*3 1.8-7.8 Blood lymphocytes automated count (number/volume) 0.8 10*3 1.0-4.0 Blood monocytes automated count (number/volume) 0. 4 10*3 0.0-1.0 Automated eosinophil count 0.2 10*3/uL 0 .0-0.3 Automated blood basophil count (count/volume) 0.0 10*3/uL 0.0-0.1 Whole blood basic metabolic panel - 03/07 03:56 Serum or plasma sodium measurement (moles/volume) 140 mmol/L 135-145 Serum or plasma potassium measurement (moles/volume) 3.5 mmol/L 3.6-5.0 Serum or plasma chloride measurement (moles/volume) 109 mmol/L 98-107 Carbon dioxide 18 mmol/L 21-32 Serum or plasma anion gap determination (moles/volume) 13 mmol/L 5-14 Serum or plasma urea nitrogen measurement (mass/volume ) 22 mg/dL 7-18 Serum or plasma creatinine measurement (mass/volume) 1.05 mg/dL 0.60-1.30 Serum or plasma urea nitrogen/creatinine mass ratio 21 NRG Serum or plasma creatinine measurement w ith calculation of estimated glomerular filtration rate > NRG Serum or plasma glucose measurement (mass/volume) 111 mg/dL 70-105 Serum or plasma calcium measurement (mass/volume) 8.4 mg/dL 8.5-10.1 Magnesium - 02/20/16 03:56 Magnesium 1.8 mg/dL 1.8-2.4 Complete blood count (CBC) with automate d white blood cell (WBC) differential - 02/21/16 04:22 Blood leukocytes automated count (number/volume) 5.1 10*3/uL 4.3-11.0 Blood erythrocytes automated count (number/volume) 3.73 10*6/uL 4.35-5.85 Venous blood hemoglobin measurement (mass/volume) 11.5 g/dL 13.3-17.7 Blood hematocrit (volume fraction) 33 % 40-54 Automated erythrocyte mean corpuscular volume 88 [ foz_us] 80-99 Automated erythrocyte mean corpuscular h emoglobin (mass per erythrocyte) 31 pg 25-34 Automated erythrocyte mean corpuscular h emoglobin concentration measurement (mass/volume) 35 g/dL 32-36 Automated erythrocyte distribution width ratio 12. 6 % 10.0- 14.5 Automated blood platelet count (count/volume) 177 10*3/uL 130-400 Automated blood platelet mean volume measurement 9.7 [foz_us] 7.4-10.4 Automated blood neutrophils/100 leukocytes 76 % 42-75 Automated blood lymphocytes/100 leukocytes 13 % 12-44 Blood monocytes/100 leukocytes 7 % 0-12 Automated blood eosinophils/100 leukocytes 4 % 0-10 Automated blood basophils/100 leukocytes 0 % 0-10 Blood neutrophils automated count (number/volume) 3.9 10*3 1.8-7.8 Blood lymphocytes automated count (number/volume) 0.7 10*3 1.0-4.0 Blood monocytes automated count (number/volume) 0. 4 10*3 0.0-1.0 Automated eosinophil count 0.2 10*3/uL 0 .0-0.3 Automated blood basophil count (count/volume) 0.0 10*3/uL 0.0-0.1 Whole blood basic metabolic panel - 04/07 04:22 Serum or plasma sodium measurement (moles/volume) 140 mmol/L 135-145 Serum or plasma potassium measurement (moles/volume) 3.6 mmol/L 3.6-5.0 Serum or plasma chloride measurement (moles/volume) 109 mmol/L 98-107 Carbon dioxide 20 mmol/L 21-32 Serum or plasma anion gap determination (moles/volume) 11 mmol/L 5-14 Serum or plasma urea nitrogen measurement (mass/volume ) 19 mg/dL 7-18 Serum or plasma creatinine measurement (mass/volume) 0.87 mg/dL 0.60-1.30 Serum or plasma urea nitrogen/creatinine mass ratio 22 NRG Serum or plasma creatinine measurement w ith calculation of estimated glomerular filtration rate > NRG Serum or plasma glucose measurement (mass/volume) 109 mg/dL 70-105 Serum or plasma calcium measurement (mass/volume) 8.7 mg/dL 8.5-10.1 Complete blood count (CBC) with automate d white blood cell (WBC) differential - 02/22/16 03:15 Blood leukocytes automated count (number/volume) 5.2 10*3/uL 4.3-11.0 Blood erythrocytes automated count (number/volume) 3.62 10*6/uL 4.35-5.85 Venous blood hemoglobin measurement (mass/volume) 10.9 g/dL 13.3-17.7 Blood hematocrit (volume fraction) 32 % 40-54 Automated erythrocyte mean corpuscular volume 89 [ foz_us] 80-99 Automated erythrocyte mean corpuscular h emoglobin (mass per erythrocyte) 30 pg 25-34 Automated erythrocyte mean corpuscular h emoglobin concentration measurement (mass/volume) 34 g/dL 32-36 Automated erythrocyte distribution width ratio 12. 6 % 10.0- 14.5 Automated blood platelet count (count/volume) 175 10*3/uL 130-400 Automated blood platelet mean volume measurement 9.5 [foz_us] 7.4-10.4 Automated blood neutrophils/100 leukocytes 73 % 42-75 Automated blood lymphocytes/100 leukocytes 12 % 12-44 Blood monocytes/100 leukocytes 11 % 0-12 Automated blood eosinophils/100 leukocytes 4 % 0-10 Automated blood basophils/100 leukocytes 0 % 0-10 Blood neutrophils automated count (number/volume) 3.8 10*3 1.8-7.8 Blood lymphocytes automated count (number/volume) 0.6 10*3 1.0-4.0 Blood monocytes automated count (number/volume) 0. 6 10*3 0.0-1.0 Automated eosinophil count 0.2 10*3/uL 0 .0-0.3 Automated blood basophil count (count/volume) 0.0 10*3/uL 0.0-0.1 Whole blood basic metabolic panel - 05/05 03:15 Serum or plasma sodium measurement (moles/volume) 139 mmol/L 135-145 Serum or plasma potassium measurement (moles/volume) 3.4 mmol/L 3.6-5.0 Serum or plasma chloride measurement (moles/volume) 110 mmol/L 98-107 Carbon dioxide 20 mmol/L 21-32 Serum or plasma anion gap determination (moles/volume) 9 mmol/L 5-14 Serum or plasma urea nitrogen measurement (mass/volume ) 16 mg/dL 7-18 Serum or plasma creatinine measurement (mass/volume) 0.89 mg/dL 0.60-1.30 Serum or plasma urea nitrogen/creatinine mass ratio 18 NRG Serum or plasma creatinine measurement w ith calculation of estimated glomerular filtration rate > NRG Serum or plasma glucose measurement (mass/volume) 78 mg/dL 70-105 Serum or plasma calcium measurement (mass/volume) 8.2 mg/dL 8.5-10.1 Serum or plasma troponin i.cardiac measu rement (mass/volume) - 02/22/16 03:15 Serum or plasma troponin i.cardiac measurement (mass/v olume) 3.15 ng/mL <0.30 Complete blood count (CBC) with automate d white blood cell (WBC) differential - 02/23/16 03:28 Blood leukocytes automated count (number/volume) 5.1 10*3/uL 4.3-11.0 Blood erythrocytes automated count (number/volume) 3.49 10*6/uL 4.35-5.85 Venous blood hemoglobin measurement (mass/volume) 10.6 g/dL 13.3-17.7 Blood hematocrit (volume fraction) 31 % 40-54 Automated erythrocyte mean corpuscular volume 88 [ foz_us] 80-99 Automated erythrocyte mean corpuscular h emoglobin (mass per erythrocyte) 30 pg 25-34 Automated erythrocyte mean corpuscular h emoglobin concentration measurement (mass/volume) 34 g/dL 32-36 Automated erythrocyte distribution width ratio 12. 2 % 10.0- 14.5 Automated blood platelet count (count/volume) 191 10*3/uL 130-400 Automated blood platelet mean volume measurement 9.6 [foz_us] 7.4-10.4 Automated blood neutrophils/100 leukocytes 70 % 42-75 Automated blood lymphocytes/100 leukocytes 15 % 12-44 Blood monocytes/100 leukocytes 11 % 0-12 Automated blood eosinophils/100 leukocytes 4 % 0-10 Automated blood basophils/100 leukocytes 0 % 0-10 Blood neutrophils automated count (number/volume) 3.5 10*3 1.8-7.8 Blood lymphocytes automated count (number/volume) 0.8 10*3 1.0-4.0 Blood monocytes automated count (number/volume) 0. 6 10*3 0.0-1.0 Automated eosinophil count 0.2 10*3/uL 0 .0-0.3 Automated blood basophil count (count/volume) 0.0 10*3/uL 0.0-0.1 Whole blood basic metabolic panel - 06/05 03:28 Serum or plasma sodium measurement (moles/volume) 139 mmol/L 135-145 Serum or plasma potassium measurement (moles/volume) 3.5 mmol/L 3.6-5.0 Serum or plasma chloride measurement (moles/volume) 109 mmol/L 98-107 Carbon dioxide 22 mmol/L 21-32 Serum or plasma anion gap determination (moles/volume) 8 mmol/L 5-14 Serum or plasma urea nitrogen measurement (mass/volume ) 16 mg/dL 7-18 Serum or plasma creatinine measurement (mass/volume) 0.96 mg/dL 0.60-1.30 Serum or plasma urea nitrogen/creatinine mass ratio 17 NRG Serum or plasma creatinine measurement w ith calculation of estimated glomerular filtration rate > NRG Serum or plasma glucose measurement (mass/volume) 122 mg/dL 70-105 Serum or plasma calcium measurement (mass/volume) 8.4 mg/dL 8.5-10.1 Serum or plasma troponin i.cardiac measu rement (mass/volume) - 02/23/16 03:28 Serum or plasma troponin i.cardiac measurement (mass/v olume) 2.02 ng/mL <0.30 Capillary blood glucose measurement by g lucometer (mass/volume) - 03/11/17 19:20 Capillary blood glucose measurement by glucometer (mas s/volume) 124 mg/dL 70-110 Complete blood count (CBC) with automate d white blood cell (WBC) differential - 03/11/17 19:28 Blood leukocytes automated count (number/volume) 7.3 10*3/uL 4.3-11.0 Blood erythrocytes automated count (number/volume) 3.85 10*6/uL 4.35-5.85 Venous blood hemoglobin measurement (mass/volume) 12.3 g/dL 13.3-17.7 Blood hematocrit (volume fraction) 34 % 40-54 Automated erythrocyte mean corpuscular volume 89 [ foz_us] 80-99 Automated erythrocyte mean corpuscular h emoglobin (mass per erythrocyte) 32 pg 25-34 Automated erythrocyte mean corpuscular h emoglobin concentration measurement (mass/volume) 36 g/dL 32-36 Automated erythrocyte distribution width ratio 12. 5 % 10.0- 14.5 Automated blood platelet count (count/volume) 183 10*3/uL 130-400 Automated blood platelet mean volume measurement 9.8 [foz_us] 7.4-10.4 Automated blood neutrophils/100 leukocytes 63 % 42-75 Automated blood lymphocytes/100 leukocytes 24 % 12-44 Blood monocytes/100 leukocytes 9 % 0-12 Automated blood eosinophils/100 leukocytes 4 % 0-10 Automated blood basophils/100 leukocytes 0 % 0-10 Blood neutrophils automated count (number/volume) 4.7 10*3 1.8-7.8 Blood lymphocytes automated count (number/volume) 1.7 10*3 1.0-4.0 Blood monocytes automated count (number/volume) 0. 7 10*3 0.0-1.0 Automated eosinophil count 0.3 10*3/uL 0 .0-0.3 Automated blood basophil count (count/volume) 0.0 10*3/uL 0.0-0.1 Comprehensive metabolic panel - 03/11/17 19:28 Serum or plasma sodium measurement (moles/volume) 137 mmol/L 135-145 Serum or plasma potassium measurement (moles/volume) 3.8 mmol/L 3.6-5.0 Serum or plasma chloride measurement (moles/volume) 102 mmol/L 98-107 Carbon dioxide 24 mmol/L 21-32 Serum or plasma anion gap determination (moles/volume) 11 mmol/L 5-14 Serum or plasma urea nitrogen measurement (mass/volume ) 14 mg/dL 7-18 Serum or plasma creatinine measurement (mass/volume) 1.27 mg/dL 0.60-1.30 Serum or plasma urea nitrogen/creatinine mass ratio 11 NRG Serum or plasma creatinine measurement w ith calculation of estimated glomerular filtration rate 54 NRG Serum or plasma glucose measurement (mass/volume) 118 mg/dL 70-105 Serum or plasma calcium measurement (mass/volume) 9.0 mg/dL 8.5-10.1 Serum or plasma total bilirubin measurement (mass/volu me) 0.7 mg/dL 0.1-1.0 Serum or plasma alkaline phosphatase chuy surement (enzymatic activity/volume) 100 U/L 40-136 Serum or plasma aspartate aminotransfera se measurement (enzymatic activity/volume) 14 U/L 5-34 Serum or plasma alanine aminotransferase measurement (enzymatic activity/volume) 9 U/L 0-55 Serum or plasma protein measurement (mass/volume) 6.8 g/dL 6.4-8.2 Serum or plasma albumin measurement (mass/volume) 3.9 g/dL 3.2-4.5 Magnesium - 03/11/17 19:28 Magnesium 1.7 mg/dL 1.8-2.4 PT panel in platelet poor plasma by coag ulation assay - 03/11/17 19:28 Prothrombin time (PT) in platelet poor plasma by coagu lation assay 14.0 s 12.2-14.7 INR in platelet poor plasma or blood by coagulation as say 1.1 0.8-1.4 Activated partial thromboplastin time (a PTT) in platelet poor plasma bycoagulation assay - 03/11/17 19:28 Activated partial thromboplastin time (a PTT) in platelet poor plasma bycoagulation assay 28 s 24-35 Serum or plasma troponin i.cardiac measu rement (mass/volume) - 03/11/17 19:28 Serum or plasma troponin i.cardiac measurement (mass/v olume) < ng/mL <0.30 Serum or plasma lithium measurement (mol es/volume) - 03/11/17 19:28 BNP level 102.1 pg/mL <100.0 Myoglobin, serum - 03/11/17 19:28 Myoglobin, serum 45.1 ng/mL 10.0-92.0 Methicillin resistant Staphylococcus aur eus (MRSA) screening culture - 03/11/17 21:45 Methicillin resistant Staphylococcus aureus (MRSA) scr eening culture NEG NRG Complete blood count (CBC) with automate d white blood cell (WBC) differential - 03/12/17 04:25 Blood leukocytes automated count (number/volume) 6.3 10*3/uL 4.3-11.0 Blood erythrocytes automated count (number/volume) 3.74 10*6/uL 4.35-5.85 Venous blood hemoglobin measurement (mass/volume) 11.8 g/dL 13.3-17.7 Blood hematocrit (volume fraction) 34 % 40-54 Automated erythrocyte mean corpuscular volume 90 [ foz_us] 80-99 Automated erythrocyte mean corpuscular h emoglobin (mass per erythrocyte) 32 pg 25-34 Automated erythrocyte mean corpuscular h emoglobin concentration measurement (mass/volume) 35 g/dL 32-36 Automated erythrocyte distribution width ratio 12. 6 % 10.0- 14.5 Automated blood platelet count (count/volume) 169 10*3/uL 130-400 Automated blood platelet mean volume measurement 9.5 [foz_us] 7.4-10.4 Automated blood neutrophils/100 leukocytes 61 % 42-75 Automated blood lymphocytes/100 leukocytes 26 % 12-44 Blood monocytes/100 leukocytes 9 % 0-12 Automated blood eosinophils/100 leukocytes 3 % 0-10 Automated blood basophils/100 leukocytes 0 % 0-10 Blood neutrophils automated count (number/volume) 3.9 10*3 1.8-7.8 Blood lymphocytes automated count (number/volume) 1.6 10*3 1.0-4.0 Blood monocytes automated count (number/volume) 0. 6 10*3 0.0-1.0 Automated eosinophil count 0.2 10*3/uL 0 .0-0.3 Automated blood basophil count (count/volume) 0.0 10*3/uL 0.0-0.1 Whole blood basic metabolic panel - 02/20 04/08 04:25 Serum or plasma sodium measurement (moles/volume) 141 mmol/L 135-145 Serum or plasma potassium measurement (moles/volume) 5.8 mmol/L 3.6-5.0 Serum or plasma chloride measurement (moles/volume) 109 mmol/L 98-107 Carbon dioxide 23 mmol/L 21-32 Serum or plasma anion gap determination (moles/volume) 9 mmol/L 5-14 Serum or plasma urea nitrogen measurement (mass/volume ) 13 mg/dL 7-18 Serum or plasma creatinine measurement (mass/volume) 1.19 mg/dL 0.60-1.30 Serum or plasma urea nitrogen/creatinine mass ratio 11 NRG Serum or plasma creatinine measurement w ith calculation of estimated glomerular filtration rate 58 NRG Serum or plasma glucose measurement (mass/volume) 96 mg/dL 70-105 Serum or plasma calcium measurement (mass/volume) 9.3 mg/dL 8.5-10.1 Serum or plasma phosphate measurement (m ass/volume) - 03/12/17 04:25 Serum or plasma phosphate measurement (mass/volume) 2.9 mg/dL 2.3-4.7 Magnesium - 03/12/17 04:25 Magnesium 2.0 mg/dL 1.8-2.4 Lipid 1996 panel - 03/12/17 04:25 Serum or plasma triglyceride measurement (mass/volume) 41 mg/dL <150 Serum or plasma cholesterol measurement (mass/volume) 75 mg/dL < 200 Serum or plasma cholesterol in HDL measurement (mass/v olume) 32 mg/dL 40-60 Cholesterol in LDL [mass/volume] in serum or plasma by direct assay 35 mg/dL 1-129 Serum or plasma cholesterol in VLDL measurement (mass/ volume) 8 mg/dL 5-40 Whole blood basic metabolic panel - 02/20 04/08 10:15 Serum or plasma sodium measurement (moles/volume) 138 mmol/L 135-145 Serum or plasma potassium measurement (moles/volume) 3.9 mmol/L 3.6-5.0 Serum or plasma chloride measurement (moles/volume) 106 mmol/L 98-107 Carbon dioxide 22 mmol/L 21-32 Serum or plasma anion gap determination (moles/volume) 10 mmol/L 5-14 Serum or plasma urea nitrogen measurement (mass/volume ) 10 mg/dL 7-18 Serum or plasma creatinine measurement (mass/volume) 1.06 mg/dL 0.60-1.30 Serum or plasma urea nitrogen/creatinine mass ratio 9 NRG Serum or plasma creatinine measurement w ith calculation of estimated glomerular filtration rate > NRG Serum or plasma glucose measurement (mass/volume) 149 mg/dL 70-105 Serum or plasma calcium measurement (mass/volume) 8.7 mg/dL 8.5-10.1 Complete blood count (CBC) with automate d white blood cell (WBC) differential - 03/13/17 04:30 Blood leukocytes automated count (number/volume) 6.6 10*3/uL 4.3-11.0 Blood erythrocytes automated count (number/volume) 4.21 10*6/uL 4.35-5.85 Venous blood hemoglobin measurement (mass/volume) 13.2 g/dL 13.3-17.7 Blood hematocrit (volume fraction) 38 % 40-54 Automated erythrocyte mean corpuscular volume 89 [ foz_us] 80-99 Automated erythrocyte mean corpuscular h emoglobin (mass per erythrocyte) 31 pg 25-34 Automated erythrocyte mean corpuscular h emoglobin concentration measurement (mass/volume) 35 g/dL 32-36 Automated erythrocyte distribution width ratio 12. 6 % 10.0- 14.5 Automated blood platelet count (count/volume) 176 10*3/uL 130-400 Automated blood platelet mean volume measurement 9.6 [foz_us] 7.4-10.4 Automated blood neutrophils/100 leukocytes 73 % 42-75 Automated blood lymphocytes/100 leukocytes 17 % 12-44 Blood monocytes/100 leukocytes 7 % 0-12 Automated blood eosinophils/100 leukocytes 3 % 0-10 Automated blood basophils/100 leukocytes 0 % 0-10 Blood neutrophils automated count (number/volume) 4.8 10*3 1.8-7.8 Blood lymphocytes automated count (number/volume) 1.1 10*3 1.0-4.0 Blood monocytes automated count (number/volume) 0. 5 10*3 0.0-1.0 Automated eosinophil count 0.2 10*3/uL 0 .0-0.3 Automated blood basophil count (count/volume) 0.0 10*3/uL 0.0-0.1 Whole blood basic metabolic panel - 02/20 05/06 04:30 Serum or plasma sodium measurement (moles/volume) 139 mmol/L 135-145 Serum or plasma potassium measurement (moles/volume) 4.1 mmol/L 3.6-5.0 Serum or plasma chloride measurement (moles/volume) 108 mmol/L 98-107 Carbon dioxide 20 mmol/L 21-32 Serum or plasma anion gap determination (moles/volume) 11 mmol/L 5-14 Serum or plasma urea nitrogen measurement (mass/volume ) 11 mg/dL 7-18 Serum or plasma creatinine measurement (mass/volume) 0.91 mg/dL 0.60-1.30 Serum or plasma urea nitrogen/creatinine mass ratio 12 NRG Serum or plasma creatinine measurement w ith calculation of estimated glomerular filtration rate > NRG Serum or plasma glucose measurement (mass/volume) 85 mg/dL 70-105 Serum or plasma calcium measurement (mass/volume) 8.7 mg/dL 8.5-10.1 Serum or plasma phosphate measurement (m ass/volume) - 03/13/17 04:30 Serum or plasma phosphate measurement (mass/volume) 1.9 mg/dL 2.3-4.7 Magnesium - 03/13/17 04:30 Magnesium 2.0 mg/dL 1.8-2.4 Influenza virus A and B antigen detectio n - 05/01/19 19:30 CALL POSITIVES (F1 HELP) REY @2100 NRG FLU RESULT POSITIVE FOR INFLUENZA A ANT IGEN, NEG FOR B ANTIGEN, BY IA NRG Complete urinalysis with reflex to cultu re - 05/01/19 19:58 Urine color determination YELLOW NRG Urine clarity determination CLEAR NR G Urine pH measurement by test strip 6.0 5-9 Specific gravity of urine by test strip 1.020 1.016-1.022 Urine protein assay by test strip, semi-quantitative NEGATIVE NEGATIVE Urine glucose detection by automated test strip NE GATIVE NEGATIVE Erythrocytes detection in urine sediment by light micr oscopy NEGATIVE NEGATIVE Urine ketones detection by automated test strip NE GATIVE NEGATIVE Urine nitrite detection by test strip NEGATIVE NEGATIVE Urine total bilirubin detection by test strip NEGA TIVE NEGATIVE Urine urobilinogen measurement by automated test strip (mass/volume) 0.2 mg/dL < = 1.0 Urine leukocyte esterase detection by dipstick TRA CE NEGATIVE Automated urine sediment erythrocyte cou nt by microscopy (number/high power field) NONE NRG Automated urine sediment leukocyte count by microscopy (number/high power field) NONE NRG Bacteria detection in urine sediment by light microsco py TRACE NRG Crystals detection in urine sediment by light microsco py NONE NRG Casts detection in urine sediment by light microscopy NONE NRG Mucus detection in urine sediment by light microscopy NEGATIVE NRG Complete urinalysis with reflex to culture NO NRG Urine drug screening test - 05/01/19 19: 58 Urine phencyclidine detection by screening method NEGATIVE NEGATIVE Urine benzodiazepines detection by screening method NEGATIVE NEGATIVE Urine cocaine detection NEGATIVE NEGATI VE Urine amphetamines detection by screening method N EGATIVE NEGATIVE Urine methamphetamine detection by screening method NEGATIVE NEGATIVE Urine cannabinoids detection by screening method N EGATIVE NEGATIVE Urine opiates detection by screening method NEGATI VE NEGATIVE Urine barbiturates detection NEGATIVE N EGATIVE Screening urine tricyclic antidepressants detection NEGATIVE NEGATIVE Urine methadone detection by screening method NEGA TIVE NEGATIVE Urine oxycodone detection NEGATIVE NEGA TIVE Urine propoxyphene detection NEGATIVE N EGATIVE Complete blood count (CBC) with automate d white blood cell (WBC) differential - 05/01/19 20:36 Blood leukocytes automated count (number/volume) 7.8 10*3/uL 4.3-11.0 Blood erythrocytes automated count (number/volume) 3.71 10*6/uL 4.35-5.85 Venous blood hemoglobin measurement (mass/volume) 11.4 g/dL 13.3-17.7 Blood hematocrit (volume fraction) 34 % 40-54 Automated erythrocyte mean corpuscular volume 91 [ foz_us] 80-99 Automated erythrocyte mean corpuscular h emoglobin (mass per erythrocyte) 31 pg 25-34 Automated erythrocyte mean corpuscular h emoglobin concentration measurement (mass/volume) 34 g/dL 32-36 Automated erythrocyte distribution width ratio 14. 0 % 10.0- 14.5 Automated blood platelet count (count/volume) 263 10*3/uL 130-400 Automated blood platelet mean volume measurement 9.0 [foz_us] 7.4-10.4 Automated blood neutrophils/100 leukocytes 74 % 42-75 Automated blood lymphocytes/100 leukocytes 14 % 12-44 Blood monocytes/100 leukocytes 11 % 0-12 Automated blood eosinophils/100 leukocytes 1 % 0-10 Automated blood basophils/100 leukocytes 0 % 0-10 Blood neutrophils automated count (number/volume) 5.7 10*3 1.8-7.8 Blood lymphocytes automated count (number/volume) 1.1 10*3 1.0-4.0 Blood monocytes automated count (number/volume) 0. 9 10*3 0.0-1.0 Automated eosinophil count 0.1 10*3/uL 0 .0-0.3 Automated blood basophil count (count/volume) 0.0 10*3/uL 0.0-0.1 Blood lactic acid measurement (moles/vol ume) - 05/01/19 20:36 Blood lactic acid measurement (moles/volume) 1.87 mmol/L 0.50-2.00 PT panel in platelet poor plasma by coag ulation assay - 05/01/19 20:36 Prothrombin time (PT) in platelet poor plasma by coagu lation assay 15.3 s 12.2-14.7 INR in platelet poor plasma or blood by coagulation as say 1.2 0.8-1.4 Activated partial thromboplastin time (a PTT) in platelet poor plasma bycoagulation assay - 05/01/19 20:36 Activated partial thromboplastin time (a PTT) in platelet poor plasma bycoagulation assay 30 s 24-35 Comprehensive metabolic panel - 05/01/19 20:36 Serum or plasma sodium measurement (moles/volume) 139 mmol/L 135-145 Serum or plasma potassium measurement (moles/volume) 3.8 mmol/L 3.6-5.0 Serum or plasma chloride measurement (moles/volume) 108 mmol/L 98-107 Carbon dioxide 20 mmol/L 21-32 Serum or plasma anion gap determination (moles/volume) 11 mmol/L 5-14 Serum or plasma urea nitrogen measurement (mass/volume ) 50 mg/dL 7-18 Serum or plasma creatinine measurement (mass/volume) 0.91 mg/dL 0.60-1.30 Serum or plasma urea nitrogen/creatinine mass ratio 55 NRG Serum or plasma creatinine measurement w ith calculation of estimated glomerular filtration rate > NRG Serum or plasma glucose measurement (mass/volume) 114 mg/dL 70-105 Serum or plasma calcium measurement (mass/volume) 9.9 mg/dL 8.5-10.1 Serum or plasma total bilirubin measurement (mass/volu me) 0.4 mg/dL 0.1-1.0 Serum or plasma alkaline phosphatase chuy surement (enzymatic activity/volume) 89 U/L 40-136 Serum or plasma aspartate aminotransfera se measurement (enzymatic activity/volume) 23 U/L 5-34 Serum or plasma alanine aminotransferase measurement (enzymatic activity/volume) 23 U/L 0-55 Serum or plasma protein measurement (mass/volume) 7.2 g/dL 6.4-8.2 Serum or plasma albumin measurement (mass/volume) 4.0 g/dL 3.2-4.5 CALCIUM CORRECTED 9.9 mg/dL 8.5-10.1 Magnesium - 05/01/19 20:36 Magnesium 2.2 mg/dL 1.6-2.4 Serum or plasma creatine kinase measurem ent (enzymatic activity/volume) - 05/01/19 20:36 Serum or plasma creatine kinase measurem ent (enzymatic activity/volume) 80 U/L 30-200 Serum or plasma creatine kinase MB measu rement (enzymatic activity/volume) - 05/01/19 20:36 Serum or plasma creatine kinase MB measu rement (enzymatic activity/volume) 4.6 ng/mL <6.6 Serum or plasma troponin i.cardiac measu rement (mass/volume) - 05/01/19 20:36 Serum or plasma troponin i.cardiac measurement (mass/v olume) < ng/mL <0.028 Myoglobin, serum - 05/01/19 20:36 Myoglobin, serum 84.2 ng/mL 10.0-92.0 Serum or plasma amylase measurement (enz ymatic activity/volume) - 05/01/19 20:36 Serum or plasma amylase measurement (enzymatic activit y/volume) 109 U/L 25-125 Serum or plasma lithium measurement (mol es/volume) - 05/01/19 20:36 BNP PT 78.3 pg/mL <100.0 Lipase - 05/01/19 20:36 Lipase 61 U/L 8-78 Serum or plasma thyrotropin measurement by detection limit <=0.05 miu/l (units/volume) - 05/01/19 20:36 Serum or plasma thyrotropin measurement by detection limit <=0.05 miu/l (units/volume) 1.68 u[iU]/mL 0.35-4.94 Serum or plasma acetaminophen measuremen t (mass/volume) - 05/01/19 20:36 Serum or plasma acetaminophen measurement (mass/volume ) < ug/mL 10-30 Serum or plasma ethanol measurement (mas s/volume) - 05/01/19 20:36 Serum or plasma ethanol measurement (mass/volume) < mg/dL <10 Bacterial blood culture - 05/01/19 20:36 Bacterial blood culture NG NRG Capillary blood glucose measurement by g lucometer (mass/volume) - 05/01/19 20:46 Capillary blood glucose measurement by glucometer (mas s/volume) 119 mg/dL 70-110 Bacterial blood culture - 05/01/19 21:00 Bacterial blood culture NG NRG Encounters ACCT No. Visit Date/Time Discharge Status Pt. Type Provider Facility Loc./Unit Complaint [id number] 05/01/2019 18:35:00 020 23:03:00 DIS Emergency BRYAN DO, NAYLA K [facility] ER CONFUSION [id number] 03/11/2017 20:55:00 018 13:10:00 DIS Inpatient NAILA HAUSER, JULIO CÉSAR Workman [facility] ICU SYMPTOMATIC BRADYCARDIA [id number] 02/17/2016 09:38:00 017 10:40:00 DIS Inpatient MITA KHAN MD [facility] ICU SYNCOPAL EPISODE, S/P C HEST COMPRESSIONS, N/V [id number] 01/05/2015 06:39:00 11:30:00 DIS Outpatient HOOD AGUILAR MD [facility] [id number] 12/31/2014 15:21:00 23:59:59 CLS Outpatient OHOD AGUILAR MD [facility] PREOP [id number] 12/03/2014 16:49:00 23:59:59 CLS Outpatient KASH MAGALLANES MD [facility] [id number] 12/02/2014 15:11:00 23:59:59 CLS Outpatient KASH MAGALLANES MD [facility] [id number] 11/30/2014 10:44:00 12:43:00 DIS Emergency BRENDA MOTT APRN [facility] ER [id number] 04/29/2013 13:25:00 15:54:00 DIS Outpatient [id number] 03/22/2013 12:55:00 014 14:45:00 DIS Emergency [id number] 11/30/2014 12:59:45 ACT Document Registration
== END 2019-05-01 23:03 ==
LOC: EDUNIT# 18:34 → ER 18:35
DX: J10.1 Influenza due to other identified influenza virus with other respiratory manifestations (principal); F03.90 Unspecified dementia, unspecified severity, without behavioral disturbance, psychotic disturbance, mood disturbance, and anxiety; N48.89 Other specified disorders of penis; I10 Essential (primary) hypertension; I25.2 Old myocardial infarction; I25.10 Atherosclerotic heart disease of native coronary artery without angina pectoris; E78.00 Pure hypercholesterolemia, unspecified; Z86.73 Personal history of transient ischemic attack (TIA), and cerebral infarction without residual deficits; Z95.5 Presence of coronary angioplasty implant and graft; Z95.0 Presence of cardiac pacemaker; Z79.82 Long term (current) use of aspirin; Z87.891 Personal history of nicotine dependence
CPT/HCPCS: 36415; 51702; 70450; 71045; 80053; 80306; 80320; 80329; 81000; 82150; 82550; 82553; 82962; 83605; 83690; 83735; 83874; 83880; 84443; 84484; 85025; 85610; 85730; 87040; 87804; 93005; 93041

== ENCOUNTER → 2019-08-02 | Outpatient (CLI) | payer MEDICARE, OTHER ==
[~2019-08-02] MED LIST changes: +OSLT75C PO
[2019-08-02 19:07] LABS: BILIRUBIN,URINE NEGATIVE (NEGATIVE); CLARITY,URINE CLEAR; COLOR,URINE YELLOW; GLUCOSE, URINE (UA) NEGATIVE (NEGATIVE); KETONES,URINE NEGATIVE (NEGATIVE); LEUKOCYTE ESTERASE ,URINE NEGATIVE (NEGATIVE); NITRITE,URINE NEGATIVE (NEGATIVE); PH,URINE 5.5 (5-9); PROTEIN,URINE NEGATIVE (NEGATIVE)
[2019-08-02 19:18] LABS: BACTERIA,URINE NEGATIVE /HPF; SQUAMOUS EPITHELIAL CELL,UR RARE /HPF; WBC,URINE RARE /HPF
== END ==
PROVIDERS: ATTEND Internal Medicine
DX: R51 Headache (principal); R42 Dizziness and giddiness; R11.0 Nausea
CPT/HCPCS: 81000; 87088

== ENCOUNTER → 2019-08-24 | Outpatient (CLI) | payer OTHER, MEDICARE ==
[2019-08-24 09:14] LABS: ALBUMIN 3.2 GM/DL (3.2-4.5); BILIRUBIN,TOTAL 0.7 MG/DL (0.1-1.0); CALCIUM 9.4 MG/DL (8.5-10.1); CREATININE SERUM 1.55 MG/DL (0.60-1.30); POTASSIUM 3.8 MMOL/L (3.6-5.0); TOTAL PROTEIN 6.3 GM/DL (6.4-8.2)
== END ==
LOC: LABNPT 08:56
PROVIDERS: ATTEND Internal Medicine
DX: Z01.89 Encounter for other specified special examinations (principal)
CPT/HCPCS: 80053